=== PATIENT | female | born 1970 | race Caucasian/White ===

== ENCOUNTER 2020-03-22 07:37 | Outpatient (REF) | payer MEDICAID, SELFPAY ==
--- NOTE | 2020-03-22 07:43 | CA_ITS ---
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 Findings Left Ventricle Normal left ventricular size, thickness, systolic function, and wall motion. The visually estimated ejection fraction is between 55-60%. Diastolic function is normal for age. Right Ventricle Normal right ventricular cavity size and systolic function. Atria The left atrium is normal in size. There is no evidence of interatrial shunt by color Doppler. Aortic Valve Normal aortic valve structure and function. There is no aortic valve stenosis. There is no aortic valve regurgitation. Mitral Valve Normal mitral valve structure and function. There is no mitral valve regurgitation. There is no mitral valve stenosis. Pulmonic Valve Normal pulmonic valve structure and function. There is trace pulmonic valve regurgitation. Tricuspid Valve Normal tricuspid valve structure and function. There is trace tricuspid valve regurgitation. Normal right atrial pressure. There is no evidence of pulmonary hypertension. Great Vessels All visible segments of the aorta are normal in size. The visualized portions of the pulmonary artery and branches are normal. Venous The inferior vena cava is normal in size and collapses greater than 50% with inspiration. Pericardium/Pleural There is no evidence of pericardial effusion. Prior Study Comparison No prior study available for comparison. Measurements 2D Linear Measurements RVADd: 0.39 RVIDd: 2.96 IVSd: 0.76 0.6-0.9/0.6-1.0 cm LVIDd: 4.26 3.9-5.3/4.2-5.9 cm LVIDs: 2.75 2.0-3.6 cm LVPWd: 0.80 0.7-1.1 cm Ao Root: 2.92 2.1-3.5 cm LA Diam: 3.10 2.7-3.8/3.0-4.0 cm LV Mass: 124.83 67-162/88-224 g LVOT Diam: 1.98 3.0+(-)1.3 cm Mitral Valve MV Pk E: 0.84 MV PK A: 0.70 MV Decel Time: 215.14 E/A: 1.20 E'Lateral: 0.17 E'Medial: 0.10 Decel [place]: 3.90 Aortic Valve AoV Pk Herrera: 1.69 AoV Mn Herrera: 1.16 AoV VTI: 0.31 AoV Pk Grad: 11.39 Aov Mn Grad: 6.06 LVOT LVOT Pk Herrera: 1.32 LVOT Mn Herrera: 0.83 LVOT VTI: 0.26 LVOT Pk Grad: 7.02 LVOT Mn Grad: 3.23 LVOT Diam: 1.98 LVOT Area: 3.07 Diastolic Function MV Pk E: 0.84 MV Pk A: 0.70 E/A: 1.20 E'Medial: 0.10 E' Laterial: 0.17 Tricuspid Valve TR Pk Herrera: 2.37 TR Pk Grad: 22.43 RA Press: 8.00 Great Vessels Aorta Ao Root-2D: 2.92 2.0-3.7 cm Ao Asc: 3.02 2.1-3.4 cm Ao Arch: 2.43 Updated in Other Vendor System with Status of Final Mekhi Chung MD electronically signed on 03/22/2020 7:22:35 PM with status of Final
== END 2020-03-22 07:38 | disposition home or self-care (01) ==
LOC: HO.RESP 07:37
PROVIDERS: PCP Internal Medicine Geriatric Medicine; Visit Provider Internal Medicine Pulmonary Disease
DX: R06.00 Dyspnea, unspecified (principal)
CPT/HCPCS: 93306; 94060; 94727; 94729

== ENCOUNTER 2020-03-25 08:15 | Outpatient (REF) | payer MEDICAID, SELFPAY ==
--- NOTE | 2020-03-25 08:20 | CT_ITS ---
EXAMINATION: CT ANGIOGRAM CHEST CLINICAL INFORMATION: Dyspnea on exertion. Rule out PE. COMPARISON: None TECHNIQUE: Multiple axial images were obtained through the chest after the administration of 65 mL of Ultravist 370 intravenous contrast. Extensive vascular post-processing including two-dimensional and three-dimensional reformatted images were created and reviewed on an independent workstation. This CT examination was performed using dose optimization techniques as appropriate, variously including the following: *Automated exposure control *Adjustment of mA and/or kV according to patient size (this includes techniques or standardized protocols for targeted exams where dose is matched to indication/reason for exam; i.e. extremities or head) *Use of iterative reconstruction technique DLP: 82 mGy-cm FINDINGS: There is good opacification of the pulmonary artery and its branches without any intraluminal filling defect or narrowing. The thoracic aorta is of normal caliber without aneurysm or dissection. There is no pericardial effusion. There is no abnormal mediastinal or hilar lymphadenopathy. The trachea and the bronchi are widely patent. The lungs are well expanded and clear of acute process. There is a 5 mm calcified nodule, right upper lobe, axial image 17/5. No additional pulmonary nodules, mass, or consolidation seen. There is no pleural effusion, thickening, or calcification. The axilla and chest appear unremarkable. There is an 8 mm calcification in the right central breast. Imaging through the upper abdomen reveals visualized liver, spleen, pancreas and bilateral adrenal glands to be unremarkable. Bone windows reveal no visible fracture or bony abnormality. The soft tissues are normal. CT/CT angio chest IMPRESSION: 1. No evidence of PE. 2. No evidence of aortic aneurysm or dissection. 3. Calcified granuloma, right upper lobe. No additional calcified or noncalcified pulmonary nodules seen.
[2020-03-25] MEDS: iohexoL 350 MG/ML 100 ML INFUS..BTL 65 ML IV (09:41)
== END 2020-03-25 08:16 | disposition home or self-care (01) ==
LOC: HO.CT 08:15
PROVIDERS: Visit Provider Internal Medicine Pulmonary Disease
DX: R06.00 Dyspnea, unspecified (principal)
CPT/HCPCS: 71275

== ENCOUNTER 2020-03-31 14:30 | Outpatient (REF) | payer MEDICAID, SELFPAY ==
--- NOTE | 2020-03-31 14:16 | FL_ITS ---
PROCEDURE: XR MODIFIED BARIUM SWALLOW CLINICAL INFORMATION: Dysphagia. COMPARISON: None TECHNIQUE: Modified barium swallow was performed in lateral fluoroscopy in presence of speech therapist. FINDINGS: Following oral administration of various consistencies of liquid, solid and semisolid food coated with barium there is normal propagation of bolus from the oral cavity through the pharynx into esophagus without obstruction. No laryngeal penetration or aspiration seen. No retention of barium in the valleculae piriform sinuses. FLUOROSCOPY TIME: 1.0 minutes. DOSE AREA PRODUCT: 0.837 uGy-m2 (microgray-meter squared). FL/FL barium swallow modified IMPRESSION: Unremarkable modified barium swallow.
== END 2020-03-31 14:31 ==
LOC: HO.XRAY 14:30
PROVIDERS: Referring Provider Internal Medicine Pulmonary Disease; Visit Provider Internal Medicine Pulmonary Disease
DX: R13.10 Dysphagia, unspecified (principal)
CPT/HCPCS: 74230; 92611

== ENCOUNTER 2020-04-09 14:03 | Inpatient (IN) | payer MEDICAID, SELFPAY ==
[2020-04-09 15:57] VITALS: BP 110/68; PULSE 97; RESP 20; TEMP 36.8; O2SAT 100; BMI 52.9
--- NOTE | 2020-04-09 17:28 | ECG_ITS ---
Test Reason : SHORTNESS OF BREATH Blood Pressure : / mmHG Vent. Rate : 087 BPM Atrial Rate : 087 BPM P-R Int : 136 ms QRS Dur : 070 ms QT Int : 366 ms P-R-T Axes : 044 032 032 degrees QTc Int : 440 ms Normal sinus rhythm Normal ECG When compared with ECG of 11-AUG-2015 00:19, No significant change was found Referred By: Randee Tanner Electronically Signed By:SIDRA RANKIN MD
--- NOTE | 2020-04-09 17:41 | ED.RECABL ---
HPI - Recheck/Abnormal Lab/Rx General Chief Complaint: Recheck/Abnormal Lab/Rx Stated Complaint: abnormal lab work Time Seen by Provider: 04/09/20 16:15 Source: patient Mode of arrival: ambulatory Limitations: language barrier (Croatian-speaking) History of Present Illness HPI narrative: 49yoF who is being followed by Sales Market Leader Dr. De La Rosa for difficulty swallowing and sob with laying down and exertion for the past few months presenting to the ED after having outpatient blood work yesterday and being called today for a low blood count' pt unsure which blood count. Reports for the past few weeks so has noticed generalized weakness, dizziness and poor appetite. Denies any other symptoms including N/V, Chest pain, abdominal pain, hemoptysis, hematuria, melena, and hematochezia. Related Data Home Medications Medication Instructions Recorded Confirmed No Known Home Meds 04/09/20 04/09/20 Allergies Allergy/AdvReac Type Severity Reaction Status Date / Time No Known Allergies Allergy Mild NONE Unverified 02/19/20 17:08 Latex Allergy Unknown Uncoded 11/13/18 00:00 latex Allergy Unknown Uncoded 11/15/15 00:00 [facility] Past Medical History Attestation statement: The following information was validated with the patient. Medical History No known health problems Social History Social History Alcohol intake: never Smoking Status: Never smoker Smoked in Last 30 Days: No Use of substances other than those prescribed or required for medical reasons: No Advance Directives: No Advance Directives Information Provided: No Physical Exam Vital Signs: Vital Signs: Last Vital Signs Temp 98.9 F 04/09/20 18:12 Pulse 78 04/09/20 20:00 Resp 8 L 04/09/20 20:00 BP 112/68 04/09/20 20:00 Pulse Ox 98 04/09/20 20:00 Body Mass Index 52.9 vital signs have been reviewed as normal and appeared to be correct. Blood pressure normal. Heart rate normal. Respiration rate normal. Temperature normal. Oxygen saturation normal. Appearance: Alert. Oriented X3. No acute distress. Head: Normal external exam. Normocephalic. Atraumatic. No Garcia signs noted. No raccoon eyes noted Eyes: PERRLA. EOMI. Conjunctiva and sclera normal. Eyelids normal. ENT: EAC normal. TM's Normal. Pharynx normal. Uvula midline. Moist mucous membranes. No trismus noted. No drooling noted. No muffled voice noted. Neck: Normal inspection. Neck supple. FROM. No adenopathy. Thyroid Normal. No meningeal signs. No neck mass noted. CVS: Normal heart rate and rhythm. Heart sound normal. No murmurs noted. Pulses normal throughout. Respiratory: No respiratory distress. Painless inspiration. Breath sounds normal. No wheezes/rales/rhonchi noted. Chest nontender. No accessory muscle usage noted or decreased air movement noted. Abdomen: Soft and nontender. Bowel sounds normal in all 4 quadrants. No distention noted. No organomegaly noted. No visible injury noted. Back: No CVA tenderness. Full range of motion noted. Skin: Skin warm and dry. Normal skin color. Normal skin turgor. No rashes/lesions/lacerations noted. Extremities: No lower extremity edema. Extremities exhibit normal range of motion. Extremities nontender. Neuro: Oriented X 3. No motor deficit. No sensory deficit. Reflexes normal. Course Course Course Narrative: 17:30PM - 49yoF who is being followed by Sales Market Leader Dr. De La Rosa for difficulty swallowing and sob with laying down and exertion for the past few months presenting to the ED after having outpatient blood work yesterday and being called today for a low blood count' pt unsure which blood count. Reports for the past few weeks so has noticed generalized weakness, dizziness and poor appetite. - Labs, EKG, CXR, Blood type and screen. Provide IVF's then re-evaluate Reevaluation(s) Reevaluation #1: - H&H 6.2/23.5. All other labs WNL. EKG NSR. CXR WNL. - Pt signed Consent for Transfusion of blood products at this time and 2 Packs of RBC's ordered as well for blood transfusion. Will re-evaluate. Time: 18:30 Reevaluation #2: Still awaiting the 2 packs of red blood cells for the patient to start receiving her blood transfusion. Otherwise she is comfortable laying in the bed sleeping and no apparent distress respirations even and unlabored. Vital signs are within normal limits. Patient most likely iron deficiency anemia. Stool occult was negative. Plan is to admit for further evaluation treatment as patient reports generalized weakness and dizziness along with shortness of breath for her anemia. Time: 22:[address] [facility] - Recheck/Abnormal Lab/Rx Medical Records Attestation: I reviewed the patient's medical records. Lab Data Attestation: I reviewed the patient's lab results. Result diagrams: 04/09/20 17:47 04/09/20 17:47 Labs: Lab Results 04/09/20 04/09/20 04/09/20 Range/Units 17:47 17:47 17:47 WBC 5.0 (4.8-10.8) X10*3/uL RBC 4.05 L (4.20-5.50) X10*6/uL Hgb 6.2 L* (12.0-16.0) g/dl Hct 23.5 L (37-47) % MCV 58.0 L (80-98) fL MCH 15.3 L (27.0-33.0) pg MCHC 26.4 L (31.0-35.0) g/dl RDW 18.9 H (11.0-16.0) % Plt Count 485 H (160-400) X10*3/uL MPV 9.1 L (9.4-12.3) fL Immature Gran % (Auto) 0.4 (0.0-0.4) % Neut % (Auto) 60.3 (45-73) % Lymph % (Auto) 24.1 (20-40) % [place] % (Auto) 8.6 (2-11) % Eos % (Auto) 6.0 H (0-4) % Baso % (Auto) 0.6 (0-2) % Lymph # (Auto) 1.2 (1.2-4.9) X10*3/uL [place] # (Auto) 0.4 (0.1-1.2) X10*3/uL Eos # (Auto) 0.3 (0.0-0.4) X10*3/uL Baso # (Auto) 0.0 (0.0-0.2) X10*3/uL Abs Immat Gran (auto) 0.02 (0.00-0.03) X10*3/uL Absolute Neuts (auto) 3.0 (2.0-8.3) X10*3/uL Absolute Nucleated RBC 0.000 (0.0-0.012) X10*3/uL Nucleated RBC % (auto) 0.0 (0.0-0.2) /100WBC Hold Purple Top SEE NOTE PT 13.2 H (10.8-13.0) SEC INR 1.1 (0.9-1.1) Sodium (135-145) mmol/L Potassium (3.3-5.1) mmol/l Chloride (96-108) mmol/L Carbon Dioxide (22-29) mmol/L Anion Gap (12-20) BUN (9-16) mg/dL Creatinine (0.5-1.4) mg/dL Estim Creat Clear Calc Estimated GFR Random Glucose (60-115) mg/dL Calcium (8.4-10.2) mg/dL Magnesium (1.6-2.6) mg/dL Iron (30-160) mcg/dL TIBC (228-428) mcg/dL % Saturation (15-50) % Unsat Iron Binding ug/dL Total Bilirubin (0.0-1.0) mg/dL Direct Bilirubin (0.0-0.5) mg/dL AST (5-31) U/L ALT (0-31) U/L Alkaline Phosphatase (39-117) U/L Total Protein (6.5-8.0) g/dL Albumin (3.5-5.0) g/dL Urine Color Urine Appearance Urine pH (5.0-8.0) Ur Specific [place] (1.005-1.025) Urine Protein (NEG-TRACE) MG/DL Urine Glucose (UA) (NEG) MG/DL Urine Ketones (NEG) MG/DL Urine Blood (NEG) Urine Nitrite (NEG) Ur Leukocyte Esterase (NEG) Stool Occult Blood (NEG) Blood Type Antibody Screen Crossmatch 04/09/20 04/09/20 04/09/20 Range/Units 17:47 17:47 18:26 WBC (4.8-10.8) X10*3/uL RBC (4.20-5.50) X10*6/uL Hgb (12.0-16.0) g/dl Hct (37-47) % MCV (80-98) fL MCH (27.0-33.0) pg MCHC (31.0-35.0) g/dl RDW (11.0-16.0) % Plt Count (160-400) X10*3/uL MPV (9.4-12.3) fL Immature Gran % (Auto) (0.0-0.4) % Neut % (Auto) (45-73) % Lymph % (Auto) (20-40) % [place] % (Auto) (2-11) % Eos % (Auto) (0-4) % Baso % (Auto) (0-2) % Lymph # (Auto) (1.2-4.9) X10*3/uL [place] # (Auto) (0.1-1.2) X10*3/uL Eos # (Auto) (0.0-0.4) X10*3/uL Baso # (Auto) (0.0-0.2) X10*3/uL Abs Immat Gran (auto) (0.00-0.03) X10*3/uL Absolute Neuts (auto) (2.0-8.3) X10*3/uL Absolute Nucleated RBC (0.0-0.012) X10*3/uL Nucleated RBC % (auto) (0.0-0.2) /100WBC Hold Purple Top PT (10.8-13.0) SEC INR (0.9-1.1) Sodium 141 (135-145) mmol/L Potassium 4.3 (3.3-5.1) mmol/l Chloride 107 (96-108) mmol/L Carbon Dioxide 26 (22-29) mmol/L Anion Gap 12 (12-20) BUN 10 (9-16) mg/dL Creatinine 0.64 (0.5-1.4) mg/dL Estim Creat Clear Calc 114.6 Estimated GFR > 60 Random Glucose 80 (60-115) mg/dL Calcium 7.8 L (8.4-10.2) mg/dL Magnesium 2.2 (1.6-2.6) mg/dL Iron 11 L (30-160) mcg/dL TIBC 368 (228-428) mcg/dL % Saturation 3 L (15-50) % Unsat Iron Binding 357 ug/dL Total Bilirubin 0.3 (0.0-1.0) mg/dL Direct Bilirubin 0.2 (0.0-0.5) mg/dL AST 23 (5-31) U/L ALT 20 (0-31) U/L Alkaline Phosphatase 86 (39-117) U/L Total Protein 6.1 L (6.5-8.0) g/dL Albumin 3.6 (3.5-5.0) g/dL Urine Color YELLOW Urine Appearance CLEAR Urine pH 7.5 (5.0-8.0) Ur Specific [place] 1.015 (1.005-1.025) Urine Protein NEG (NEG-TRACE) MG/DL Urine Glucose (UA) NEG (NEG) MG/DL Urine Ketones 15 (NEG) MG/DL Urine Blood NEG (NEG) Urine Nitrite NEG (NEG) Ur Leukocyte Esterase NEG (NEG) Stool Occult Blood (NEG) Blood Type O Positive Antibody Screen NEGATIVE Crossmatch See Detail 04/09/20 Range/Units 19:55 WBC (4.8-10.8) X10*3/uL RBC (4.20-5.50) X10*6/uL Hgb (12.0-16.0) g/dl Hct (37-47) % MCV (80-98) fL MCH (27.0-33.0) pg MCHC (31.0-35.0) g/dl RDW (11.0-16.0) % Plt Count (160-400) X10*3/uL MPV (9.4-12.3) fL Immature Gran % (Auto) (0.0-0.4) % Neut % (Auto) (45-73) % Lymph % (Auto) (20-40) % [place] % (Auto) (2-11) % Eos % (Auto) (0-4) % Baso % (Auto) (0-2) % Lymph # (Auto) (1.2-4.9) X10*3/uL [place] # (Auto) (0.1-1.2) X10*3/uL Eos # (Auto) (0.0-0.4) X10*3/uL Baso # (Auto) (0.0-0.2) X10*3/uL Abs Immat Gran (auto) (0.00-0.03) X10*3/uL Absolute Neuts (auto) (2.0-8.3) X10*3/uL Absolute Nucleated RBC (0.0-0.012) X10*3/uL Nucleated RBC % (auto) (0.0-0.2) /100WBC Hold Purple Top PT (10.8-13.0) SEC INR (0.9-1.1) Sodium (135-145) mmol/L Potassium (3.3-5.1) mmol/l Chloride (96-108) mmol/L Carbon Dioxide (22-29) mmol/L Anion Gap (12-20) BUN (9-16) mg/dL Creatinine (0.5-1.4) mg/dL Estim Creat Clear Calc Estimated GFR Random Glucose (60-115) mg/dL Calcium (8.4-10.2) mg/dL Magnesium (1.6-2.6) mg/dL Iron (30-160) mcg/dL TIBC (228-428) mcg/dL % Saturation (15-50) % Unsat Iron Binding ug/dL Total Bilirubin (0.0-1.0) mg/dL Direct Bilirubin (0.0-0.5) mg/dL AST (5-31) U/L ALT (0-31) U/L Alkaline Phosphatase (39-117) U/L Total Protein (6.5-8.0) g/dL Albumin (3.5-5.0) g/dL Urine Color Urine Appearance Urine pH (5.0-8.0) Ur Specific [place] (1.005-1.025) Urine Protein (NEG-TRACE) MG/DL Urine Glucose (UA) (NEG) MG/DL Urine Ketones (NEG) MG/DL Urine Blood (NEG) Urine Nitrite (NEG) Ur Leukocyte Esterase (NEG) Stool Occult Blood NEG (NEG) Blood Type Antibody Screen Crossmatch Imaging Data Chest x-ray: Attestation: I personally reviewed and interpreted this imaging study as follows: Radiologist's impression: FINDINGS: The cardiac silhouette is not enlarged. The mediastinal and hilar contours are unremarkable. There are neither pleural effusions nor pneumothoraces. There are no consolidations. The osseous structures are stable. XR/XR chest 2V IMPRESSION: No evidence for acute disease. ECG Data Attestation: I personally reviewed and interpreted this ECG as follows: ECG interpretation date: 04/09/20 ECG interpretation time: 18:08 Prior ECG tracings: available for review Interpretation: Normal sinus rhythm with a ventricular rate of 87 with a normal CA interval, with a normal QRS duration normal QT /QTC interval. No acute ischemic changes noted. Similar compared to prior August 2015. Critical Care Time Critical Care Time Critical Care Time: Yes Total Critical Care Time: 120 Attestation: I personally attest to this time spent taking care of the patient Discharge Plan Discharge Clinical Impression: Anemia, Weakness generalized, Dizziness Patient Disposition: Admitted As Inpatient Prescriptions: No Action No Known Home Meds RF: 0
[2020-04-09] MEDS: 0.9 % Sodium Chloride 1,000 ML 999 ML IVCONT (17:50)
[2020-04-09 17:59] LABS: MANUAL DIFF FLAG NO
[2020-04-09 18:00] LABS: Basophils Percent Auto 0.6 % (0-2); Mean Platelet Volume 9.1 fL (9.4-12.3)
--- NOTE | 2020-04-09 18:02 | XR_ITS ---
EXAMINATION: CHEST 2 VIEWS CLINICAL INFORMATION: Shortness of breath. COMPARISON: December 12, 2019. TECHNIQUE: PA and lateral views of the chest were obtained. FINDINGS: The cardiac silhouette is not enlarged. The mediastinal and hilar contours are unremarkable. There are neither pleural effusions nor pneumothoraces. There are no consolidations. The osseous structures are stable. XR/XR chest 2V IMPRESSION: No evidence for acute disease.
[2020-04-09 18:05] LABS: Eosinophils Absolute Auto 0.3 X10*3/uL (0.0-0.4); Hematocrit 23.5 % (37-47); Imm Gran Abs Auto 0.02 X10*3/uL (0.00-0.03); Imm Gran Pct Auto 0.4 % (0.0-0.4); Lymphocytes Absolute Auto 1.2 X10*3/uL (1.2-4.9); Lymphocytes Percent Auto 24.1 % (20-40); Mean Corpuscular HGB Conc 26.4 g/dl (31.0-35.0); Mean Corpuscular Hemoglobin 15.3 pg (27.0-33.0); Monocytes Absolute Auto 0.4 X10*3/uL (0.1-1.2); Monocytes Percent Auto 8.6 % (2-11); Neutrophils Percent Auto 60.3 % (45-73); Platelet Count 485 X10*3/uL (160-400); Red Blood Count 4.05 X10*6/uL (4.20-5.50); Red Cell Distribution Width 18.9 % (11.0-16.0)
[2020-04-09 18:06] LABS: Glucose Urine UA NEG (NEG); Leukocyte Esterase Urine NEG (NEG); Nitrite Urine NEG (NEG); PH 7.5 (5.0-8.0); Specific Gravity - Urine 1.015 (1.005-1.025); Urine Blood NEG (NEG); Urine Ketones 15 MG/DL (NEG); Urine Protein NEG (NEG-TRACE)
[2020-04-09 18:12] VITALS: BP 107/63; PULSE 91; RESP 20; TEMP 37.2; O2SAT 100
[2020-04-09 18:24] LABS: Alanine Aminotransferase 20 U/L (0-31); Albumin Level 3.6 g/dL (3.5-5.0); Alkaline Phosphatase 86 U/L (39-117); Anion Gap 12 (12-20); Aspartate Amino Transferase 23 U/L (5-31); Bilirubin Direct 0.2 mg/dL (0.0-0.5); Bilirubin Total 0.3 mg/dL (0.0-1.0); Blood Urea Nitrogen 10 mg/dL (9-16); Calcium 7.8 mg/dL (8.4-10.2); Carbon Dioxide 26 mmol/L (22-29); Chloride 107 mmol/L (96-108); Creatinine Clr Calc Pharmacy 114.6; Estimated Glomerular Filt Rate > 60; Glucose Random 80 mg/dL (60-115); Magnesium 2.2 mg/dL (1.6-2.6); Potassium 4.3 mmol/l (3.3-5.1); Sodium 141 mmol/L (135-145); Total Protein 6.1 g/dL (6.5-8.0)
[2020-04-09 18:41] LABS: INTERNATIONAL NORM RATIO 1.1 (0.9-1.1); Prothrombin Time 13.2 SEC (10.8-13.0)
[2020-04-09 19:01] LABS: Appearance Urine CLEAR; Color Urine YELLOW
[2020-04-09 20:00] VITALS: BP 112/68; PULSE 78; RESP 8; O2SAT 98
[2020-04-09 20:14] LABS: OBS Int Ctl Valid YES; OBS1 NEG (NEG)
[2020-04-09 20:21] LABS: Iron 11 mcg/dL (30-160); Percent Iron Saturation 3 % (15-50); Total Iron Binding Capacity 368 mcg/dL (228-428); Unsaturated Iron Binding 357 ug/dL
[2020-04-09] MEDS: Acetaminophen 325 MG TABLET 650 MG PO (20:51)
[2020-04-09 22:00] VITALS: BP 101/63; PULSE 81; RESP 16; O2SAT 98
[2020-04-09 22:57] VITALS: BP 106/58; PULSE 92; RESP 16; TEMP 37
[2020-04-09 23:15] LABS: Ferritin < 1 ng/mL (10-250)
[2020-04-09 23:17] VITALS: BP 97/55; PULSE 88; RESP 18; TEMP 37
[2020-04-10] VITALS (11 sets, daily range): BP systolic 95–114; BP diastolic 58–75; PULSE 73–83; RESP 16–20; TEMP 36.1–37.1; O2SAT 97–99
--- NOTE | 2020-04-10 01:25 | PM.IMHP ---
History of Present Illness Date of Service: 04/10/20 Chief Complaint: dizziness 49 y/o female who presented from home due to dizziness. Per history provided by the patient, for the past 2 weeks has been having symptoms of dizziness and feeling more fatigue than usual. Patient denies any blood in the stool, blood in the urine, vomiting blood, vomiting, diarrhea, chest pain or SOB. Colonoscopy done by Dr Bains in 2018 showed internal hemorrhoids, polyposis. Patient has a hx of abnormal uterine bleeding which was determined to be likely secondary to adenomatous hyperplasia which failed progestational therapy, dilation and curettage. Patient had hysterectomy in 2010. On presentation to the ED patient is found to be hemodynamically stable, hgb low of 6.2, electrolytes WNL. type and screen as well as consent for blood transfusion obtained per ED. 2 units of PRBC ordered per ED. Decision for admission given. Patient seen and examined at the bedside, laying down in bed in no acute distress. ROS as above otherwise negative. Physical exam unermarkable. PMHX: Anemia PSx: C section, bilateral tubal ligation, bilateral reduction mammoplasty, dilation and curettage in march 2008, hysterectomy Review of Systems Constitutional: Constitutional: Reports fatigue, Reports lethargy and Reports malaise Endocrine: Endocrine: Reports fatigue [facility] Medical History No known health problems Functional capacity: independent ambulation Social History Alcohol intake: never Smoking Status: Never smoker Smoked in Last 30 Days: No Use of substances other than those prescribed or required for medical reasons: No Advance Directives: No Advance Directives Information Provided: No Meds Allergies Allergy/AdvReac Type Severity Reaction Status Date / Time No Known Allergies Allergy Mild NONE Unverified 02/19/20 17:08 Latex Allergy Unknown Uncoded 11/13/18 00:00 latex Allergy Unknown Uncoded 11/15/15 00:00 Home Medications Medication Instructions Recorded Confirmed Type No Known Home Meds 04/09/20 04/09/20 History Physical Exam Vital Signs and Narrative: Vital Signs: Last Vital Signs Temp 98.6 F 04/09/20 23:17 Pulse 78 04/10/20 00:00 Resp 16 04/10/20 00:00 BP 104/68 04/10/20 00:00 Pulse Ox 98 04/10/20 00:00 Body Mass Index 52.9 Const: General: cooperative, comfortable and no acute distress Orientation/consciousness: oriented to person HENMT: Head: Yes normal to inspection Eyes: General: appearance normal, both eyes and all related structures Neck: Yes normal visual inspection Chest: Chest palpation & inspection: normal inspection of the chest Resp: Effort & Inspection: normal respiratory effort Cardio: Jugular venous distension: no JVD Rate: regular rate Rhythm: regular rhythm Heart sounds: S1 normal heart sound present and S2 normal heart sound present GI: Inspection: Yes normal to inspection Skin: General skin exam: no rashes or lesions noted Neuro: General: oriented to person Results Labs CBC and Chem 7: 04/09/20 17:47 04/09/20 17:47 Labs: Laboratory Results - last 24 hr 04/09/20 04/09/20 04/09/20 17:47 17:47 17:47 MCV 58.0 L MCH 15.3 L MCHC 26.4 L RDW 18.9 H Plt Count 485 H MPV 9.1 L Immature Gran % (Auto) 0.4 Neut % (Auto) 60.3 Lymph % (Auto) 24.1 [place] % (Auto) 8.6 Eos % (Auto) 6.0 H Baso % (Auto) 0.6 Lymph # (Auto) 1.2 [place] # (Auto) 0.4 Eos # (Auto) 0.3 Baso # (Auto) 0.0 Abs Immat Gran (auto) 0.02 Absolute Neuts (auto) 3.0 Absolute Nucleated RBC 0.000 Nucleated RBC % (auto) 0.0 Hold Purple Top SEE NOTE PT 13.2 H INR 1.1 Anion Gap Estim Creat Clear Calc Estimated GFR Random Glucose Calcium Magnesium Iron TIBC % Saturation Unsat Iron Binding Ferritin Total Bilirubin Direct Bilirubin AST ALT Alkaline Phosphatase Total Protein Albumin Urine Color Urine Appearance Urine pH Ur Specific [place] Urine Protein Urine Glucose (UA) Urine Ketones Urine Blood Urine Nitrite Ur Leukocyte Esterase Stool Occult Blood Blood Type Antibody Screen Crossmatch 04/09/20 04/09/20 04/09/20 17:47 17:47 18:26 MCV MCH MCHC RDW Plt Count MPV Immature Gran % (Auto) Neut % (Auto) Lymph % (Auto) [place] % (Auto) Eos % (Auto) Baso % (Auto) Lymph # (Auto) [place] # (Auto) Eos # (Auto) Baso # (Auto) Abs Immat Gran (auto) Absolute Neuts (auto) Absolute Nucleated RBC Nucleated RBC % (auto) Hold Purple Top PT INR Anion Gap 12 Estim Creat Clear Calc 114.6 Estimated GFR > 60 Random Glucose 80 Calcium 7.8 L Magnesium 2.2 Iron 11 L TIBC 368 % Saturation 3 L Unsat Iron Binding 357 Ferritin < 1 L Total Bilirubin 0.3 Direct Bilirubin 0.2 AST 23 ALT 20 Alkaline Phosphatase 86 Total Protein 6.1 L Albumin 3.6 Urine Color YELLOW Urine Appearance CLEAR Urine pH 7.5 Ur Specific [place] 1.015 Urine Protein NEG Urine Glucose (UA) NEG Urine Ketones 15 Urine Blood NEG Urine Nitrite NEG Ur Leukocyte Esterase NEG Stool Occult Blood Blood Type O Positive Antibody Screen NEGATIVE Crossmatch See Detail 04/09/20 19:55 MCV MCH MCHC RDW Plt Count MPV Immature Gran % (Auto) Neut % (Auto) Lymph % (Auto) [place] % (Auto) Eos % (Auto) Baso % (Auto) Lymph # (Auto) [place] # (Auto) Eos # (Auto) Baso # (Auto) Abs Immat Gran (auto) Absolute Neuts (auto) Absolute Nucleated RBC Nucleated RBC % (auto) Hold Purple Top PT INR Anion Gap Estim Creat Clear Calc Estimated GFR Random Glucose Calcium Magnesium Iron TIBC % Saturation Unsat Iron Binding Ferritin Total Bilirubin Direct Bilirubin AST ALT Alkaline Phosphatase Total Protein Albumin Urine Color Urine Appearance Urine pH Ur Specific [place] Urine Protein Urine Glucose (UA) Urine Ketones Urine Blood Urine Nitrite Ur Leukocyte Esterase Stool Occult Blood NEG Blood Type Antibody Screen Crossmatch Imaging Radiologist's Impressions: Impressions Chest X-Ray 04/09/20 18:02 IMPRESSION: No evidence for acute disease. Assessment and Plan (1) Anemia: Qualifiers: Anemia type: unspecified type Qualified Code(s): D64.9 - Anemia, unspecified Status: Acute (2) H/O: hysterectomy: Status: Acute Anemia of unknown etiology, guaiac negative in the ED S/p colonoscopy in the past with evidence of mod internal hemorrhoids / polyps 2 units of PRBC ordered per ED Follow up repeat CBC post transfusion Keep Hgb >7 Follow up anemia work up including: fetting, retic count and iron profile Hematology consult in the am
[2020-04-10 01:49] LABS: Alanine Aminotransferase 18 U/L (0-31); Albumin Level 3.2 g/dL (3.5-5.0); Alkaline Phosphatase 71 U/L (39-117); Anion Gap 9 (12-20); Aspartate Amino Transferase 16 U/L (5-31); Bilirubin Total 0.4 mg/dL (0.0-1.0); Blood Urea Nitrogen 9 mg/dL (9-16); Calcium 7.3 mg/dL (8.4-10.2); Carbon Dioxide 24 mmol/L (22-29); Chloride 110 mmol/L (96-108); Creatinine Clr Calc Pharmacy 112.9; Estimated Glomerular Filt Rate > 60; Glucose Random 95 mg/dL (60-115); Sodium 139 mmol/L (135-145); Total Protein 5.3 g/dL (6.5-8.0)
--- NOTE | 2020-04-10 01:49 | PC.NURSE ---
awaiting for COVID pending results before room assignment given.
[2020-04-10 02:18] LABS: SARS COV2 PCR INHOUSE NEGATIVE (Negative)
--- NOTE | 2020-04-10 02:43 | PC.NURSE ---
pt awaiting for room assignment.
--- NOTE | 2020-04-10 03:25 | PC.NURSE ---
report given to floor. pt to floor in stretcher.
--- NOTE | 2020-04-10 03:48 | PC.NURSE ---
PT TO FLOOR IN STRETCHER WITHOUT COMPLAINTS. HL X 2 FLUSHES EASILY W/O RESISTENCE. REPORT GIVEN TO BUBBA RIOS. PT TO FLOOR IN STRETCHER IN NAD AT THIS TIME.
[2020-04-10] MEDS: Acetaminophen 325 MG TABLET 650 MG PO (06:02)
[2020-04-10 06:52] LABS: Hemoglobin 6.2 g/dl (12.0-16.0)
[2020-04-10 07:12] LABS: MANUAL DIFF FLAG SCAN; Mean Corpuscular Hemoglobin 19.4 pg (27.0-33.0); Red Cell Distribution Width 29.7 % (11.0-16.0); SCAN SMEAR FLAG 1
[2020-04-10 07:14] LABS: Basophils Percent Auto 0.8 % (0-2); Eosinophils Absolute Auto 0.4 X10*3/uL (0.0-0.4); Eosinophils Percent Auto 6.8 % (0-4); Hematocrit 30.6 % (37-47); Hemoglobin 8.8 g/dl (12.0-16.0); Lymphocytes Absolute Auto 1.3 X10*3/uL (1.2-4.9); Lymphocytes Percent Auto 25.2 % (20-40); Mean Corpuscular HGB Conc 28.8 g/dl (31.0-35.0); Mean Corpuscular Volume 67.4 fL (80-98); Mean Platelet Volume 9.1 fL (9.4-12.3); Monocytes Absolute Auto 0.5 X10*3/uL (0.1-1.2); Monocytes Percent Auto 8.5 % (2-11); Neutrophils Absolute Auto 3.1 X10*3/uL (2.0-8.3); Neutrophils Percent Auto 58.7 % (45-73); Platelet Count 413 X10*3/uL (160-400); Red Blood Count 4.54 X10*6/uL (4.20-5.50); Retic HGB Equivalent 15.4 pg (30.0-35.0); Reticulocyte Percent 0.9 % (0.5-1.8); White Blood Count 5.3 X10*3/uL (4.8-10.8)
[2020-04-10 07:44] LABS: Anion Gap 12 (12-20); Blood Urea Nitrogen 8 mg/dL (9-16); Calcium 7.5 mg/dL (8.4-10.2); Carbon Dioxide 22 mmol/L (22-29); Chloride 108 mmol/L (96-108); Creatinine Clr Calc Pharmacy 116.5; Estimated Glomerular Filt Rate > 60; Glucose Random 88 mg/dL (60-115); Iron 23 mcg/dL (30-160); Percent Iron Saturation 7 % (15-50); Potassium 4.3 mmol/l (3.3-5.1); Sodium 138 mmol/L (135-145); Total Iron Binding Capacity 325 mcg/dL (228-428); Unsaturated Iron Binding 302 ug/dL
[2020-04-10 07:58] LABS: SLIDE REVIEW VERIFIED
[2020-04-10 08:10] LABS: Ferritin < 1 ng/mL (10-250)
[2020-04-10] MEDS: 0.9 % Sodium Chloride Flush 3 ML SYRINGE IVFLUSH ×3 (09:12→22:43)
--- NOTE | 2020-04-10 11:27 | PM.HEMONCCN ---
Subjective - Subjective Chief complaint: acquired microcytic anemia Patient: new to practice Primary Care Provider: Barry Kent MD HPI - Consult Narrative Reason for consult: anemia Narrative: Radha Cabrera is a 49 year old female who presents with no known bleeding and a new microcytic anemia with MCV of 58, ferritin pending. Review of Systems - Constitutional Reports other - Eyes Reports floaters - ENT Reports system reviewed and no additional complaints, except as documented - Cardiovascular Reports lightheadedness - Respiratory Reports other - Gastrointestinal Reports constipation - Genitourinary Reports other - Musculoskeletal Reports muscle weakness - Integumentary/Breasts Skin/Breast: Reports other - Neurologic Reports weakness - Psychiatric Reports lack of enjoyment - Endocrine Reports cold intolerance - Hematologic/Lymphatic Reports other - Allergic/Immunologic Reports other Oncology Screenings - Immunizations Influenza Immunization Status: Up To Date Pneumoccocal Immunization Status: Up To Date - ECOG Performance Status ECOG Performance Status: 1 - G8 Geriatric Assessment Mobility: Goes out G8 Score: 2 G8 Risk Level: High risk for early functional decline and reduced survival. - [place] Frail Scale Number of times patient admitted to hospital in past year: 1 to 2 [place] Frail Scale Score: 1 Frailty Level: Not Frail - [place] VTE Risk Cancer Type: Other Pre-chemo platelet count >= 350,000/uL: Yes Hemoglobin level <10 g/dL or using RBC growth factors: Yes Pre-chemo leukocyte count > 11,000/uL: Yes BMI >=35: Yes VTE Risk Score:: 4 [place] VTE Risk: High VTE Risk [facility] Medical History: Medical History (Last Reviewed 04/10/20 @ 05:30 by Kalyani York RN) No known health problems Functional capacity: independent ambulation Smoking status: Never smoker Substance use type: does not use Alcohol intake: never Home Medications and Allergies Current Medications: Current Medications Generic Name Dose Route Start Last Admin Trade Name Freq PRN Reason Stop Dose Admin Ferrous Sulfate 324 mg 04/10/20 11:25 Ferrous Sulfate 324 Mg Tablet.Dr LUIZ F[facility] Pharmacy Consult 1 each 04/09/20 21:54 Consult Rx Perform Med Rec MISCELLANE ONCE PRN Consult order Sodium Chloride 3 ml 04/10/20 08:00 04/10/20 09:12 0.9 % Sodium Chloride Flush 3 Ml Syringe IVFLUSH 3 ml QSHIFT [facility] Administration Home Medications Medication Instructions Recorded Confirmed Type No Known Home Meds 04/09/20 04/09/20 History Allergies Allergy/AdvReac Type Severity Reaction Status Date / Time No Known Allergies Allergy Mild NONE Unverified 02/19/20 17:08 Latex Allergy Unknown Uncoded 11/13/18 00:00 latex Allergy Unknown Uncoded 11/15/15 00:00 Physical Exam Vital signs: Vital Signs Temp 98.2 F 04/10/20 11:24 Pulse 81 04/10/20 11:24 Resp 18 04/10/20 11:24 BP 103/67 04/10/20 11:24 Pulse Ox 98 04/10/20 11:24 Intake & Output 04/09/20 04/10/20 04/10/20 18:59 06:59 18:59 Intake Total 1940 / 1940 Output Total 200 / 200 Balance 1740 / 1740 Urine Output (Average ml/kg/hr) 0.15 Intake: Intake, Oral Amount 240 / 240 Intake (Blood Product) Amount 700 / 700 Red Blood Cells (E0336) Unit 350 / 350 [id number] Red Blood Cells (E0382) Unit 350 / 350 [id number] Intake, IV Amount 1000 / 1000 0.9 % Sodium Chloride 1,000 ml 1000 / 1000 @ 999 mls/hr IVCONT .Q1H1M ONE Rx#:[id number] Output: Output, Urine Amount 200 / 200 Other: Urine Bathroom Urine Color Yellow Weight 111 kg Weight 111 kg - Constitutional Present: no acute distress - Routine HEENT Exam Head: Present: atraumatic ENT: Present: mucous membranes moist - Routine Neck Exam Present: supple - Routine Chest/Breast/Axilla Exam Breast: Present: Normal Exam - Routine Respiratory Exam Present: decreased breath sounds - Routine Cardiovascular Exam Cardiovascular: Present: RRR - Routine Abdominal Exam Present: diminished bowel sounds, nontender - Routine Exam Patient deferred: external exam - Routine Extremities Exam Present: full ROM - Routine Back/Spine/Pelvis Exam Back/Spine: Present: full ROM - Routine Neurological Exam Present: alert, oriented X3 - Routine Psychiatric Exam Present: normal affect Hem/Onc Consult Result - Labs CBC & Chem 7: 04/10/20 06:28 04/10/20 06:28 Labs: Short CBC 04/09/20 04/10/20 Range/Units 17:47 06:28 WBC 5.0 5.3 (4.8-10.8) X10*3/uL Hgb 6.2 L* 8.8 L D (12.0-16.0) g/dl Hct 23.5 L 30.6 L D (37-47) % Plt Count 485 H 413 H (160-400) X10*3/uL BMP 04/09/20 04/10/20 04/10/20 17:47 01:00 06:28 Sodium 141 139 138 Potassium 4.3 4.0 4.3 Chloride 107 110 H 108 Carbon Dioxide 26 24 22 BUN 10 9 8 L Creatinine 0.64 0.65 0.63 Calcium 7.8 L 7.3 L D 7.5 L Liver Function 04/09/20 04/10/20 Range/Units 17:47 01:00 Total Bilirubin 0.3 0.4 (0.0-1.0) mg/dL Direct Bilirubin 0.2 (0.0-0.5) mg/dL AST 23 16 (5-31) U/L ALT 20 18 (0-31) U/L Alkaline Phosphatase 86 71 (39-117) U/L Albumin 3.6 3.2 L (3.5-5.0) g/dL Urine 04/09/20 Range/Units 17:47 Urine Color YELLOW Urine Appearance CLEAR Urine pH 7.5 (5.0-8.0) Ur Specific [place] 1.015 (1.005-1.025) Urine Protein NEG (NEG-TRACE) MG/DL Urine Glucose (UA) NEG (NEG) MG/DL Assessment and Plan (1) Anemia Status: Acute Qualifiers: Anemia type: iron deficiency Iron deficiency anemia type: chronic blood loss Qualified Code(s): D50.0 - Iron deficiency anemia secondary to blood loss (chronic) The new microcytosis is likely iron deficiency from blood loss or malabsorption. She has been transfused. Please check ferritin and reticulocytes. will follow.
--- NOTE | 2020-04-10 11:54 | P.CNGI_ITS ---
History of Present Illness Data of Consult Service Date: 04/10/20 Requesting physician: Kristi Barone Primary Care Provider: Barry Kent MD HPI Reason for consult: anemia 49-year-old female presented to [facility] ED yesterday with generalized weakness and dizziness for the past few weeks: 49 YF who is being followed by [employer]yl[employer]id[facility] Dr. De La Rosa for difficulty swallowing and sob with laying down and exertion for the past few months presenting to the ED after having outpatient blood work yesterday and being called today for a low blood count' pt unsure which blood count. Reports for the past few weeks she has noticed generalized weakness, dizziness and poor appetite. Denies any other symptoms including N/V, Chest pain, abdominal pain, hemoptysis, hematuria, melena, and hematochezia Labs revealed severe microcytic hypochromic anemia with H&H of 6.2 and 23.5. Iron studies were consistent with iron deficiency anemia. Stool Hemoccult was negative. Patient was admitted and transfused 2 U packed RBCs. Repeat H&H this morning was 8.8 & 30. Patient complains of dysphagia and odynophagia to solids (even crackers) for the past 7 to 8 months. She states she has been eating less and cutting up her food into small pieces. Patient denies episodes of regurgitation or food impaction. Admits to weight loss of 11 lb over the past 7-8 months. She denies symptoms of heartburn, abdominal pain, change in appetite or weight. Denies recent change in bowel habits, constipation, diarrhea, black stools or rectal bleeding. Patient denies major cardiac or pulmonary problems, loud snoring or sleep apnea Pt complains of nausea and vomiting after she had anesthesia for colonoscopy in the past. Denies being on chronic anticoagulation. Patient denies known family history of colon polyps, colon cancer or other GI malignancies. PAST GI HISTORY BY REVIEW OF MEDICAL RECORDS: 03/23 Modified barium swallow was normal. 02/27/19 Patient had a screening colonoscopy which showed: Ascending Colon A 12 -15 mm sessile polyp removed with a hot snare Sigmoid Colon A 7-8 mm sessile polyp removed with a cold snare and residual polyp removed with a cold biopsy and moderate diverticulosis BIOPSIES SHOWED: A. Colon, ascending polyp, polypectomy: Fragments of tubular adenoma. B. Colon, sigmoid polyp, polypectomy: Fragments of hyperplastic polyp. FU Colonoscopy was advised in 3 yrs and will be due in 02/23 Review of Systems Constitutional: Constitutional: Denies headache(s), Reports weakness and Reports weight loss Eyes: Eyes: Denies eye discharge and Denies irritation ENT: Reports Normal hearing present, Reports dysphagia, Denies dizziness, Denies headache(s) and Reports odynophagia Cardiovascular: Cardiovascular: Denies chest pain, Denies leg edema and Denies dyspnea on exertion Respiratory: Respiratory: Denies cough and Denies dyspnea on exertion Gastrointestinal: Gastrointestinal: Denies abdominal pain, Denies change in bowel habits, Reports dysphagia, Denies heartburn and Reports odynophagia Genitourinary: Genitourinary: Denies difficulty voiding and Denies dysuria Musculoskeletal: Musculoskeletal: Denies back pain and Denies arthralgias Integumentary/Breasts: Skin/Breast: Denies pruritus, Denies rash and Denies jaundice Neurologic: Reports Normal hearing present, Denies dizziness, Denies headache(s) and Reports weakness Psychiatric: Psychiatric: Denies anxiety, Denies depression and Denies panic attacks Endocrine: Endocrine: Denies cold intolerance, Denies flushing and Denies heat intolerance PMFSH Past Medical History Medical History No known health problems Functional capacity: independent ambulation Social History Social History Household Members: Spouse Housing: House Do you presently have visiting nurse or other home services: No Alcohol intake: never Smoking Status: Never smoker Smoked in Last 30 Days: No Use of substances other than those prescribed or required for medical reasons: No Currently Displaying Signs/Symptoms of Drug Intoxication Withdrawal: No Have you been hit, kicked, punched, or otherwise hurt by someone within the past year? If so, by whom?: No Do you feel safe in your current relationship?: Yes Is there a partner from a previous relationship who is making you feel unsafe now?: No Are you made to feel afraid or neglected: No Baptism Healthcare Practices: evangelical Advance Directives: No Advance Directives Information Provided: No Do you have thoughts of harming others: None Do you have a plan to hurt others: No Plan Recently lost weight without trying: Yes service: No Current occupational status: unemployed Meds Allergies Allergy/AdvReac Type Severity Reaction Status Date / Time No Known Allergies Allergy Mild NONE Unverified 02/19/20 17:08 Latex Allergy Unknown Uncoded 11/13/18 00:00 latex Allergy Unknown Uncoded 11/15/15 00:00 Home Medications Medication Instructions Recorded Confirmed Type No Known Home Meds 04/09/20 04/09/20 History Physical Exam Vital Signs: Vital Signs: Last Vital Signs Temp 98.2 F 04/10/20 11:24 Pulse 81 04/10/20 11:24 Resp 18 04/10/20 11:24 BP 103/67 04/10/20 11:24 Pulse Ox 98 04/10/20 11:24 Body Mass Index 52.9 Const: General: healthy appearing and no acute distress Nutritional Appearance: average body habitus Orientation/consciousness: patient oriented x3 Limitations: no limitations HENMT: Head: Yes normal to inspection Ears: hearing grossly normal bilaterally Mouth: Normal oral and palatal mucosa present Eyes: Sclerae: sclerae normal Pupils: Equal, round and reactive pupils present Neck: Neck: Yes normal visual inspection Chest: Chest palpation & inspection: normal inspection of the chest Resp: Effort & Inspection: normal respiratory effort Auscultation: clear to auscultation bilaterally Cardio: Palpation: normal PMI Rate: regular rate Rhythm: regular rhythm Heart sounds: S1 normal heart sound present, S2 normal heart sound present and no murmurs GI: Palpation (GI): Soft to palpation, nontender and No hepatosplenomegaly present Auscultation: normal bowel sounds Rectal Exam - Female: deferred Skin: General skin exam: no rashes or lesions noted Neuro: General: patient oriented x3, gait normal and moves all extremities Cranial nerves: Yes Equal, round and reactive pupils present and Yes Normal hearing present Psych: Appearance: grossly normal Mental Status: mental status grossly normal Results Labs CBC & Chem 7: 04/11/20 06:26 04/11/20 06:26 Labs: Short CBC 04/09/20 04/10/20 Range/Units 17:47 06:28 WBC 5.0 5.3 (4.8-10.8) X10*3/uL Hgb 6.2 L* 8.8 L D (12.0-16.0) g/dl Hct 23.5 L 30.6 L D (37-47) % Plt Count 485 H 413 H (160-400) X10*3/uL BMP 04/09/20 04/10/20 04/10/20 17:47 01:00 06:28 Sodium 141 139 138 Potassium 4.3 4.0 4.3 Chloride 107 110 H 108 Carbon Dioxide 26 24 22 BUN 10 9 8 L Creatinine 0.64 0.65 0.63 Calcium 7.8 L 7.3 L D 7.5 L Liver Function 04/09/20 04/10/20 Range/Units 17:47 01:00 Total Bilirubin 0.3 0.4 (0.0-1.0) mg/dL Direct Bilirubin 0.2 (0.0-0.5) mg/dL AST 23 16 (5-31) U/L ALT 20 18 (0-31) U/L Alkaline Phosphatase 86 71 (39-117) U/L Albumin 3.6 3.2 L (3.5-5.0) g/dL Urine 04/09/20 Range/Units 17:47 Urine Color YELLOW Urine Appearance CLEAR Urine pH 7.5 (5.0-8.0) Ur Specific [place] 1.015 (1.005-1.025) Urine Protein NEG (NEG-TRACE) MG/DL Urine Glucose (UA) NEG (NEG) MG/DL Assessment and Plan (1) Dysphagia: Status: Acute (2) Odynophagia: Status: Acute (3) Anemia: Qualifiers: Anemia type: iron deficiency Iron deficiency anemia type: chronic blood loss Qualified Code(s): D50.0 - Iron deficiency anemia secondary to blood loss (chronic) Status: Acute 49 Year old [place]serratian-speaking female (understands some Fijian) admitted with severe anemia which has improved after blood transfusion. Patient gives history of dysphagia and odynophagia for the past 7-8 months associated with 11 lb weight loss. Her symptoms are worrisome for erosive esophagitis with benign or malignant stricture, esophageal candidiasis or esophageal motility disorder. RECCOMENDATIONS: 1. Oral PPI omeprazole twice daily. 2. I will schedule her for an upper endoscopy with possible dilation on 04/12/2020. Procedure and potential complications including bleeding, perforation, drug reaction and aspiration were reviewed with the patient with the help of a environmental services project manager. Patient is willing to proceed.
[2020-04-10] MEDS: Ferrous Sulfate 324 MG TABLET.DR PO ×2 (12:16→16:14)
[2020-04-10] MEDS: Omeprazole 40 MG CAPSULE.DR PO (18:15)
[2020-04-11] VITALS (7 sets, daily range): BP systolic 103–121; BP diastolic 61–75; PULSE 65–85; RESP 18; TEMP 36.1–37.1; O2SAT 97–100
[2020-04-11] MEDS: Omeprazole 40 MG CAPSULE.DR PO ×2 (05:27→16:15)
[2020-04-11 07:11] LABS: MANUAL DIFF FLAG NO
[2020-04-11 07:21] LABS: Basophils Percent Auto 0.8 % (0-2); Eosinophils Absolute Auto 0.4 X10*3/uL (0.0-0.4); Eosinophils Percent Auto 7.4 % (0-4); Hematocrit 31.3 % (37-47); Hemoglobin 9.1 g/dl (12.0-16.0); Imm Gran Abs Auto 0.01 X10*3/uL (0.00-0.03); Imm Gran Pct Auto 0.2 % (0.0-0.4); Lymphocytes Absolute Auto 1.2 X10*3/uL (1.2-4.9); Lymphocytes Percent Auto 24.4 % (20-40); Mean Corpuscular HGB Conc 29.1 g/dl (31.0-35.0); Mean Corpuscular Hemoglobin 19.4 pg (27.0-33.0); Mean Corpuscular Volume 66.7 fL (80-98); Mean Platelet Volume 8.9 fL (9.4-12.3); Monocytes Absolute Auto 0.4 X10*3/uL (0.1-1.2); Monocytes Percent Auto 8.8 % (2-11); Neutrophils Absolute Auto 2.9 X10*3/uL (2.0-8.3); Neutrophils Percent Auto 58.4 % (45-73); Platelet Count 410 X10*3/uL (160-400); Red Blood Count 4.69 X10*6/uL (4.20-5.50); Red Cell Distribution Width 29.3 % (11.0-16.0)
[2020-04-11 08:00] LABS: Anion Gap 9 (12-20); Blood Urea Nitrogen 10 mg/dL (9-16); Calcium 7.5 mg/dL (8.4-10.2); Carbon Dioxide 25 mmol/L (22-29); Chloride 109 mmol/L (96-108); Creatinine Clr Calc Pharmacy 109.5; Estimated Glomerular Filt Rate > 60; Glucose Random 90 mg/dL (60-115); Potassium 4.1 mmol/l (3.3-5.1); Sodium 139 mmol/L (135-145)
--- NOTE | 2020-04-11 08:44 | MHC.CM.PN ---
CM met with pt with the assistance of painter and paperhanger apprentice. Pt reports she lives at home with her and daughter. Pt is independent with care and mobility and uses a nebulizer PRN. Pt reports she has no community / home services. Ptl completed a HCP today naming her son, Rene Salomon ([phone]) as her only agent. current DC plan is home with no services pt will self arrange transport
[2020-04-11] MEDS: 0.9 % Sodium Chloride Flush 3 ML SYRINGE IVFLUSH ×2 (09:39→13:33)
[2020-04-11] MEDS: Ferrous Sulfate 324 MG TABLET.DR PO ×2 (09:39→16:15)
--- NOTE | 2020-04-11 11:13 | PM.HEMONCPN ---
Medical Summary - Medical Summary Chief complaint: iron deficiency anemia Medical Summary: The ferritin of less than one confims iron dificiency. Interval History Interval history: She feels well today. Review of Systems - Eyes Reports other - ENT Reports other - Cardiovascular Reports shortness of breath - Respiratory Reports dyspnea - Gastrointestinal Reports abdominal pain - Genitourinary Reports other - Musculoskeletal Reports other - Integumentary/Breasts Skin/Breast: Reports other - Neurologic Reports system reviewed and no additional complaints, except as documented, Reports hearing normal, Reports weakness, Denies headache(s) - Psychiatric Reports change in appetite - Endocrine Reports other - Hematologic/Lymphatic Reports other - Allergic/Immunologic Reports other [facility] Medical History: Medical History (Last Reviewed 04/10/20 @ 05:30 by Kalyani York RN) No known health problems Functional capacity: independent ambulation Smoking status: Never smoker Home Medications and Allergies Current Medications: Current Medications Generic Name Dose Route Start Last Admin Trade Name Freq PRN Reason Stop Dose Admin Ferrous Sulfate 324 mg 04/10/20 11:25 04/11/20 09:39 Ferrous Sulfate 324 Mg Tablet. PO 324 mg BIDWM [facility] Administration Omeprazole 40 mg 04/10/20 17:10 04/11/20 05:27 Omeprazole 40 Mg Capsule. PO 40 mg BID@[id number],[id number] [facility] Administration Pharmacy Consult 1 each 04/09/20 21:54 Consult Rx Perform Med Rec MISCELLANE ONCE PRN Consult order Sodium Chloride 3 ml 04/10/20 08:00 04/11/20 09:39 0.9 % Sodium Chloride Flush 3 Ml Syringe IVFLUSH 3 ml QSHIFT [facility] Administration Home Medications Medication Instructions Recorded Confirmed Type No Known Home Meds 04/09/20 04/09/20 History Allergies Allergy/AdvReac Type Severity Reaction Status Date / Time No Known Allergies Allergy Mild NONE Unverified 02/19/20 17:08 Latex Allergy Unknown Uncoded 11/13/18 00:00 latex Allergy Unknown Uncoded 11/15/15 00:00 Exam Vital signs: Vital Signs Temp 98 F 04/11/20 11:00 Pulse 84 04/11/20 11:00 Resp 18 04/11/20 11:00 BP 121/75 04/11/20 11:00 Pulse Ox 100 04/11/20 11:00 Intake & Output 04/10/20 04/11/20 04/11/20 18:59 06:59 18:59 Intake Total 210 / 690 480 / 690 Output Total 400 / 400 Balance -190 / 290 480 / 290 Urine Output (Average ml/kg/hr) 0.30 0.30 Intake: Intake, Oral Amount 210 / 690 480 / 690 Output: Output, Urine Amount 400 / 400 Other: Breakfast % Eaten 100% Lunch % Eaten 100% Number of Unmeasured Voids 2 Urine Bathroom Urine Color Yellow Weight 111 kg Body Mass Index 52.9 - Constitutional Present: no acute distress - Routine HEENT Exam Head: Present: atraumatic - Routine Neck Exam Present: full ROM - Routine Chest/Breast/Axilla Exam Breast: Present: Normal Exam - Routine Respiratory Exam Present: decreased breath sounds - Routine Cardiovascular Exam Cardiovascular: Present: RRR - Routine Abdominal Exam Present: diminished bowel sounds, nontender - Routine Exam Patient deferred: external exam - Routine Extremities Exam Present: full ROM - Routine Back/Spine/Pelvis Exam Back/Spine: Present: full ROM - Routine Neurological Exam Present: alert, oriented X3 Data - Labs CBC & Chem 7: 04/11/20 06:26 04/11/20 06:26 Labs: Laboratory Results - last 24 hr 04/11/20 04/11/20 06:26 06:26 WBC 5.0 RBC 4.69 Hgb 9.1 L Hct 31.3 L MCV 66.7 L MCH 19.4 L MCHC 29.1 L RDW 29.3 H Plt Count 410 H MPV 8.9 L Immature Gran % (Auto) 0.2 Neut % (Auto) 58.4 Lymph % (Auto) 24.4 [place] % (Auto) 8.8 Eos % (Auto) 7.4 H Baso % (Auto) 0.8 Lymph # (Auto) 1.2 [place] # (Auto) 0.4 Eos # (Auto) 0.4 Baso # (Auto) 0.0 Abs Immat Gran (auto) 0.01 Absolute Neuts (auto) 2.9 Absolute Nucleated RBC 0.000 Nucleated RBC % (auto) 0.0 Sodium 139 Potassium 4.1 Chloride 109 H Carbon Dioxide 25 Anion Gap 9 L BUN 10 Creatinine 0.67 Estim Creat Clear Calc 109.5 Estimated GFR > 60 Random Glucose 90 Calcium 7.5 L Progress Note: A/P (1) Anemia Start date: 04/11/20 Status: Acute Assessment and plan: The new microcytosis is likely iron deficiency from blood loss or malabsorption. She has been transfused. Please check ferritin and reticulocytes. will follow. - Time Spent With Patient Total time spent is greater than 50% in coordination of care (as documented) at patient's floor/unit and/or counseling patient: 15 - 24 minutes
--- NOTE | 2020-04-11 12:19 | HO.PM.IMPN ---
Subjective Subjective Date of Service: 04/11/20 Interval History: the patient was seen and evaluated this morning Laying in bed, feels comfortable Denies any fever, chills or shortness of breath No reported other overnight events. Review of Systems Review of Systems: Yes all other systems are reviewed and are negative Physical Exam Vital Signs: Vital Signs: Last Vital Signs Temp 98 F 04/11/20 11:00 Pulse 84 04/11/20 11:00 Resp 18 04/11/20 11:00 BP 121/75 04/11/20 11:00 Pulse Ox 100 04/11/20 11:00 Body Mass Index 52.9 Constitutional : Alert, oriented, not in distress Neck : Normal inspection, Supple, pain and difficulty with swallowing Cardiovascular : RRR, S1 S2, no lower extremity edema Respiratory : Good bilateral air entry, no crackles, wheezes or rhonchi Gastrointestinal: soft, lax, Normal bowel sounds, Non tender Skin : Warm/Dry, No rash Neurological : Alert & oriented x3, No focal deficit Objective Data Current Medications Generic Name Dose Route Start Last Admin Trade Name Freq PRN Reason Stop Dose Admin Ferrous Sulfate 324 mg 04/10/20 11:25 04/11/20 09:39 Ferrous Sulfate 324 Mg Tablet. PO 324 mg BIDWM [facility] Administration Omeprazole 40 mg 04/10/20 17:10 04/11/20 05:27 Omeprazole 40 Mg Capsule. PO 40 mg BID@[id number] [facility] Administration Pharmacy Consult 1 each 04/09/20 21:54 Consult Rx Perform Med Rec MISCELLANE ONCE PRN Consult order Sodium Chloride 3 ml 04/10/20 08:00 04/11/20 09:39 0.9 % Sodium Chloride Flush 3 Ml Syringe IVFLUSH 3 ml QSHIFT [facility] Administration Labs CBC & Chem 7: 04/11/20 06:26 04/11/20 06:26 Assessment and Plan (1) Odynophagia: Status: Acute (2) Dysphagia: Status: Acute (3) Weakness generalized: Status: Acute (4) Dizziness: Status: Acute (5) H/O: hysterectomy: Status: Acute (6) Symptomatic anemia: Status: Acute (7) Iron deficiency anemia: Status: Acute Assessment and Plan: A 44 years old lady who presented to the hospital with dizziness and weakness found to have significant anemia. Symptomatic anemia Iron deficiency anemia Hemoglobin stable after 2 units of transfusion 2 No proof of GI bleed but seems to be the most likely diagnosis Continue omeprazole b.i.d. 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
[2020-04-11] MEDS: Sodium Ferric Gluconat/Sucrose 125 MG in 0.9 % Sodium Chloride 100 ML 100 MG IV (13:25)
[2020-04-12] VITALS (13 sets, daily range): BP systolic 83–130; BP diastolic 42–85; PULSE 63–130; RESP 15–20; TEMP 36.1–37.2; O2SAT 97–100; BMI 52.9; BMI 23.8
[2020-04-12] MEDS: 0.9 % Sodium Chloride Flush 3 ML SYRINGE IVFLUSH ×2 (00:41→08:23)
[2020-04-12 04:23] LABS: Hematocrit 33.7 % (37-47); Hemoglobin 9.8 g/dl (12.0-16.0); Mean Corpuscular HGB Conc 29.1 g/dl (31.0-35.0); Mean Corpuscular Hemoglobin 19.7 pg (27.0-33.0); Mean Corpuscular Volume 67.7 fL (80-98); Platelet Count 425 X10*3/uL (160-400); Red Blood Count 4.98 X10*6/uL (4.20-5.50); Red Cell Distribution Width 29.6 % (11.0-16.0); White Blood Count 5.8 X10*3/uL (4.8-10.8)
[2020-04-12 04:54] LABS: Anion Gap 10 (12-20); Blood Urea Nitrogen 11 mg/dL (9-16); Calcium 8.3 mg/dL (8.4-10.2); Carbon Dioxide 27 mmol/L (22-29); Chloride 107 mmol/L (96-108); Creatinine Clr Calc Pharmacy 104.8; Estimated Glomerular Filt Rate > 60; Glucose Random 87 mg/dL (60-115); Sodium 140 mmol/L (135-145)
[2020-04-12] MEDS: Lactated Ringers 500 ML 999 ML IVCONT (05:15)
[2020-04-12] MEDS: Omeprazole 40 MG CAPSULE.DR PO (05:20)
--- NOTE | 2020-04-12 08:13 | P.CDIC_ITS ---
CDI Concurrent Query Service Date: 04/12/20 Documentation Clarification: Please clarify if you are treating a proba ble/suspected/likely or confirmed: Iron deficiency anemia 2nd to chronic blood loss anemia Iron deficiency anemia 2nd to acute on chronic blood loss anemia Please specify if known Provider Response: Other (Iron deficiency anemia 2nd to chronic blood loss anemia) Other Diagnosis: Iron deficiency anemia 2nd to chronic blood loss anemia PLEASE DO NOT DELETE/MODIFY EXISTING CONTENT Additional information is needed in order to code to the highest accuracy and appropriate Severity of Illness (SOI). Please clarify the information noted below in your progress notes and discharge summary. Risk Factors/Clinical Indicators/Treatments Generalized weakness, dizzy, poor appetite HGB 6.2 HCT 23.5 Transfuse 2 units PRBC Iron deficiency anemia 2nd to blood loss Oncology notes new microcytosis is likely iron deficiency from blood loss or malabsorption. CDS: Ashley Gifford CCS, CDIS Contact Number: [phone] Please Review the information above and exercise your independent professional judgment in responding to the query. If you concur, pleas document in the PROGRESS NOTES and DISCHARGE SUMMARY. If you do not agree with the query, please document in the query above. THIS QUERY IS PART OF THE PERMANENT MEDICAL RECORD
[2020-04-12] MEDS: Ferrous Sulfate 324 MG TABLET.DR PO (08:23)
--- NOTE | 2020-04-12 12:45 | HO.ANESPROP2 ---
HPI - Anesthesia Eval Consult details Narrative: 49 F with anemia and dysphagia PMFSH Past Medical History Medical History No known health problems Functional capacity: independent ambulation Social History Social History Household Members: Spouse Housing: House Do you presently have visiting nurse or other home services: No Alcohol intake: never Smoking Status: Never smoker Smoked in Last 30 Days: No Use of substances other than those prescribed or required for medical reasons: No Currently Displaying Signs/Symptoms of Drug Intoxication Withdrawal: No Have you been hit, kicked, punched, or otherwise hurt by someone within the past year? If so, by whom?: No Do you feel safe in your current relationship?: Yes Is there a partner from a previous relationship who is making you feel unsafe now?: No Are you made to feel afraid or neglected: No Jehovah'S Witness Healthcare Practices: anglican Advance Directives: No Advance Directives Information Provided: Yes Advance Directives on File: No Do you have thoughts of harming others: None Do you have a plan to hurt others: No Plan Recently lost weight without trying: Yes service: No Current occupational status: unemployed Meds Allergies Allergy/AdvReac Type Severity Reaction Status Date / Time No Known Allergies Allergy Mild NONE Unverified 02/19/20 17:08 Latex Allergy Unknown Uncoded 11/13/18 00:00 latex Allergy Unknown Uncoded 11/15/15 00:00 Home Medications Medication Instructions Recorded Confirmed Type No Known Home Meds 04/09/20 04/09/20 History Exam Exam Date and Time: April 12, 2020 1349 Height,Weight and Vital Signs: Height 4 ft 9 in Weight 49.895 kg Last Vital Signs Temp 97.0 F 04/12/20 12:16 Pulse 85 04/12/20 12:16 Resp 18 04/12/20 12:16 BP 118/77 04/12/20 12:16 Pulse Ox 100 04/12/20 12:16 Pertinent Lab Results Pertinent Lab Results: Laboratory Tests 04/09/20 04/09/20 04/09/20 17:47 17:47 17:47 WBC 5.0 RBC 4.05 L Hgb 6.2 L* Hct 23.5 L MCV 58.0 L MCH 15.3 L MCHC 26.4 L RDW 18.9 H Plt Count 485 H MPV 9.1 L Immature Gran % (Auto) 0.4 Neut % (Auto) 60.3 Lymph % (Auto) 24.1 Sampson % (Auto) 8.6 Eos % (Auto) 6.0 H Baso % (Auto) 0.6 Lymph # (Auto) 1.2 Sampson # (Auto) 0.4 Eos # (Auto) 0.3 Baso # (Auto) 0.0 Abs Immat Gran (auto) 0.02 Absolute Neuts (auto) 3.0 Absolute Nucleated RBC 0.000 Nucleated RBC % (auto) 0.0 Smear Tech's Comments Smear Path Review SEE NOTE Absolute Retic Percent Retic Immature Retic Fraction Retic Hgb Equivalent Hold Purple Top SEE NOTE PT 13.2 H INR 1.1 Sodium Potassium Chloride Carbon Dioxide Anion Gap BUN Creatinine Estim Creat Clear Calc Estimated GFR Random Glucose Calcium Magnesium Iron TIBC % Saturation Unsat Iron Binding Ferritin Total Bilirubin Direct Bilirubin AST ALT Alkaline Phosphatase Total Protein Albumin Urine Color Urine Appearance Urine pH Ur Specific [place] Urine Protein Urine Glucose (UA) Urine Ketones Urine Blood Urine Nitrite Ur Leukocyte Esterase Stool Occult Blood Coronavirus (PCR) Blood Type Antibody Screen Crossmatch 04/09/20 04/09/20 04/09/20 17:47 17:47 18:26 WBC RBC Hgb Hct MCV MCH MCHC RDW Plt Count MPV Immature Gran % (Auto) Neut % (Auto) Lymph % (Auto) Sampson % (Auto) Eos % (Auto) Baso % (Auto) Lymph # (Auto) Sampson # (Auto) Eos # (Auto) Baso # (Auto) Abs Immat Gran (auto) Absolute Neuts (auto) Absolute Nucleated RBC Nucleated RBC % (auto) Smear Tech's Comments Smear Path Review Absolute Retic Percent Retic Immature Retic Fraction Retic Hgb Equivalent Hold Purple Top PT INR Sodium 141 Potassium 4.3 Chloride 107 Carbon Dioxide 26 Anion Gap 12 BUN 10 Creatinine 0.64 Estim Creat Clear Calc 114.6 Estimated GFR > 60 Random Glucose 80 Calcium 7.8 L Magnesium 2.2 Iron 11 L TIBC 368 % Saturation 3 L Unsat Iron Binding 357 Ferritin < 1 L Total Bilirubin 0.3 Direct Bilirubin 0.2 AST 23 ALT 20 Alkaline Phosphatase 86 Total Protein 6.1 L Albumin 3.6 Urine Color YELLOW Urine Appearance CLEAR Urine pH 7.5 Ur Specific [place] 1.015 Urine Protein NEG Urine Glucose (UA) NEG Urine Ketones 15 Urine Blood NEG Urine Nitrite NEG Ur Leukocyte Esterase NEG Stool Occult Blood Coronavirus (PCR) Blood Type O Positive Antibody Screen NEGATIVE Crossmatch See Detail 04/09/20 04/10/20 04/10/20 19:55 01:00 01:00 WBC RBC Hgb Hct MCV MCH MCHC RDW Plt Count MPV Immature Gran % (Auto) Neut % (Auto) Lymph % (Auto) Sampson % (Auto) Eos % (Auto) Baso % (Auto) Lymph # (Auto) Sampson # (Auto) Eos # (Auto) Baso # (Auto) Abs Immat Gran (auto) Absolute Neuts (auto) Absolute Nucleated RBC Nucleated RBC % (auto) Smear Tech's Comments Smear Path Review Absolute Retic Percent Retic Immature Retic Fraction Retic Hgb Equivalent Hold Purple Top PT INR Sodium 139 Potassium 4.0 Chloride 110 H Carbon Dioxide 24 Anion Gap 9 L BUN 9 Creatinine 0.65 Estim Creat Clear Calc 112.9 Estimated GFR > 60 Random Glucose 95 Calcium 7.3 L D Magnesium Iron TIBC % Saturation Unsat Iron Binding Ferritin Total Bilirubin 0.4 Direct Bilirubin AST 16 ALT 18 Alkaline Phosphatase 71 Total Protein 5.3 L Albumin 3.2 L Urine Color Urine Appearance Urine pH Ur Specific [place] Urine Protein Urine Glucose (UA) Urine Ketones Urine Blood Urine Nitrite Ur Leukocyte Esterase Stool Occult Blood NEG Coronavirus (PCR) NEGATIVE Blood Type Antibody Screen Crossmatch 04/10/20 04/10/20 04/11/20 06:28 06:28 06:26 WBC 5.3 5.0 RBC 4.54 4.69 Hgb 8.8 L D 9.1 L Hct 30.6 L D 31.3 L MCV 67.4 L D 66.7 L MCH 19.4 L 19.4 L MCHC 28.8 L 29.1 L RDW 29.7 H 29.3 H Plt Count 413 H 410 H MPV 9.1 L 8.9 L Immature Gran % (Auto) 0.0 0.2 Neut % (Auto) 58.7 58.4 Lymph % (Auto) 25.2 24.4 Sampson % (Auto) 8.5 8.8 Eos % (Auto) 6.8 H 7.4 H Baso % (Auto) 0.8 0.8 Lymph # (Auto) 1.3 1.2 Sampson # (Auto) 0.5 0.4 Eos # (Auto) 0.4 0.4 Baso # (Auto) 0.0 0.0 Abs Immat Gran (auto) 0.00 0.01 Absolute Neuts (auto) 3.1 2.9 Absolute Nucleated RBC 0.000 0.000 Nucleated RBC % (auto) 0.0 0.0 Smear Tech's Comments VERIFIED Smear Path Review Absolute Retic 0.040 Percent Retic 0.9 Immature Retic Fraction 37.0 H Retic Hgb Equivalent 15.4 L Hold Purple Top PT INR Sodium 138 Potassium 4.3 Chloride 108 Carbon Dioxide 22 Anion Gap 12 BUN 8 L Creatinine 0.63 Estim Creat Clear Calc 116.5 Estimated GFR > 60 Random Glucose 88 Calcium 7.5 L Magnesium Iron 23 L TIBC 325 % Saturation 7 L Unsat Iron Binding 302 Ferritin < 1 L Total Bilirubin Direct Bilirubin AST ALT Alkaline Phosphatase Total Protein Albumin Urine Color Urine Appearance Urine pH Ur Specific [place] Urine Protein Urine Glucose (UA) Urine Ketones Urine Blood Urine Nitrite Ur Leukocyte Esterase Stool Occult Blood Coronavirus (PCR) Blood Type Antibody Screen Crossmatch 04/11/20 04/12/20 04/12/20 06:26 04:10 04:10 WBC 5.8 RBC 4.98 Hgb 9.8 L Hct 33.7 L MCV 67.7 L MCH 19.7 L MCHC 29.1 L RDW 29.6 H Plt Count 425 H MPV 9.0 L Immature Gran % (Auto) Neut % (Auto) Lymph % (Auto) Sampson % (Auto) Eos % (Auto) Baso % (Auto) Lymph # (Auto) Sampson # (Auto) Eos # (Auto) Baso # (Auto) Abs Immat Gran (auto) Absolute Neuts (auto) Absolute Nucleated RBC 0.000 Nucleated RBC % (auto) 0.0 Smear Tech's Comments Smear Path Review Absolute Retic Percent Retic Immature Retic Fraction Retic Hgb Equivalent Hold Purple Top PT INR Sodium 139 140 Potassium 4.1 4.0 Chloride 109 H 107 Carbon Dioxide 25 27 Anion Gap 9 L 10 L BUN 10 11 Creatinine 0.67 0.70 Estim Creat Clear Calc 109.5 104.8 Estimated GFR > 60 > 60 Random Glucose 90 87 Calcium 7.5 L 8.3 L D Magnesium Iron TIBC % Saturation Unsat Iron Binding Ferritin Total Bilirubin Direct Bilirubin AST ALT Alkaline Phosphatase Total Protein Albumin Urine Color Urine Appearance Urine pH Ur Specific [place] Urine Protein Urine Glucose (UA) Urine Ketones Urine Blood Urine Nitrite Ur Leukocyte Esterase Stool Occult Blood Coronavirus (PCR) Blood Type Antibody Screen Crossmatch Airway TM Dist: >3cm Neck ROM: Full Loose/Missing/Broken Teeth: No Assessment and Plan Assessment Anesthesia Assessment: Anesthesia Plan Discussed and Chart Reviewed Final Anesthetic Review NPO: Yes ASA Class: III Final Preanesthetic Review: No Changes in Pt Med Stat, Meds/Allgs Chart Reviewed, Consent Obtained/Reviewed and Anes Risks/Benef Reviewed Patient Risk: Intermediate Procedure Risk: Intermediate Anesthetic Plan Anesthetic Plan: MAC: Disposition: Standard PACU
--- NOTE | 2020-04-12 13:12 | MHC.SHP ---
Pre-Procedural Eval Section A The patient is an INPATIENT: Yes Changes since office visit: Yes Patient answered all questions The History & Physical has been completed within 30 days and I have reviewed it.: Yes Section B Chief Complaint: abnormal lab work/ANEMIA Allergies: Allergies Allergy/AdvReac Type Severity Reaction Status Date / Time No Known Allergies Allergy Mild NONE Unverified 02/19/20 17:08 Latex Allergy Unknown Uncoded 11/13/18 00:00 latex Allergy Unknown Uncoded 11/15/15 00:00 Plan Patient has been examined and remains a candidate for the planned procedure
--- NOTE | 2020-04-12 13:13 | P.BOP_ITS ---
Brief Operative Note Date of procedure: 04/12/20 Pre-op diagnosis: Dysphagia, severe anemia Post-op diagnosis: other (Multiple gastric and esophageal masses with partial esophageal obstruction) Procedure: FLEXIBLE TRANSORAL UPPER GASTROINTESTINAL ENDOSCOPY WITH BIOPSIES Consent: Indications for the procedure and potential complications of bleeding, perforation, reaction to medications and missed diagnosis were discussed with the patient and informed consent was obtained. Instrument: Olympus GIF H 190 mid size upper endoscope Monitoring: Vital signs and clinical assessment, continuous EKG monitoring, Pulse oximetry, Carbon Dioxide monitoring and blood pressure monitoring were done throughout the procedure. Procedure: The patient was placed in the left lateral decubitis position and pre-procedure medications were administered and a bite block was placed. The endoscope was inserted into the mouth and advanced under direct vision to the third part of duodenum. A careful inspection was made as the upper endoscope was withdrawn including a retroflexed examination of the proximal stomach; Findings and interventions are described below. Findings: Larynx: Normal Esophagus: GE junction at 36 cms. A polypoidal ulcerated mass in the distal esophagus extending from 32 to 36 cms with partial obstruction. Stomach: A large fraible polypoidal, fungating, ulcerated, circumferential mass involving the cardia and fundus. Multiple additional polypoidal masses involving the body along the lesser curve extending close to the antrum. Another mass involving the gastric body along the great curve - multiple biopsies were obtained. Mild gastric erythema. Biopsies were obtained. Circumferental mass seen on retroflexed examination of the cardia. Duodenum: Normal bulb and descending duodenum Intervention: Biopsies as noted above Impression and Post Procedure Diagnosis: Endoscopy Findings: ESOPHAGUS: GE junction at 36 cms. A polypoidal ulcerated mass in the distal esophagus extendingf from 32 to 36 cms with partial obstruction. STOMACH: A large fraible polypoidal, fungating, ulcerated, circumferential mass involving the cardia and fundus. Multiple additional polypoidal masses involving the body along the lesser curve extending close to the antrum. Another mass involving the gastric body along the great curve - multiple biopsies were obtained. Mild gastric erythema. Biopsies were obtained. Circumferental mass seen on retroflexed examination of the cardia. Plan: Await pathology results. Chest, abdominal and Pelvic CT scan. Urgent referral to Oncology. Above findings were reviewed with the patient. Surgeon: Nathalie Bains MD Anesthesia: MAC (Dr Sanders) Money Room Teller: Elizabeth Luna Estimated blood loss (mL): 5 Pathology: other (A. Gastric antrum, B. Gastric mass, C. Mass distal esophagus) Condition: stable Disposition: PACU
--- NOTE | 2020-04-12 14:20 | HO.PM.IMPN ---
Subjective Subjective Date of Service: 04/12/20 Interval History: the patient was seen and evaluated this morning Laying in bed, feels comfortable Denies any fever, chills or shortness of breath No reported other overnight events. Review of Systems Review of Systems: Yes all other systems are reviewed and are negative Constitutional No fever, chills or weakness No chest pain, palpitation No shortness of breath or coughing Mild difficulty swallowing, mild nausea. Tolerating diet No urinary symptoms No any rash or wounds Physical Exam Vital Signs: Vital Signs: Last Vital Signs Temp 97.4 F 04/12/20 13:42 Pulse 84 04/12/20 13:42 Resp 16 04/12/20 13:42 BP 83/42 L 04/12/20 13:42 Pulse Ox 97 04/12/20 13:42 Body Mass Index 23.8 Constitutional : Alert, oriented, not in distress Neck : Normal inspection, Supple, pain and difficulty with swallowing Cardiovascular : RRR, S1 S2, no lower extremity edema Respiratory : Good bilateral air entry, no crackles, wheezes or rhonchi Gastrointestinal: soft, lax, Normal bowel sounds, Non tender Skin : Warm/Dry, No rash Neurological : Alert & oriented x3, No focal deficit Objective Data Current Medications Generic Name Dose Route Start Last Admin Trade Name Freq PRN Reason Stop Dose Admin Ferrous Sulfate 324 mg 04/10/20 11:25 04/12/20 08:23 Ferrous Sulfate 324 Mg Tablet.Dr DEE 324 mg BIDWM [facility] Administration Omeprazole 40 mg 04/10/20 17:10 04/12/20 05:20 Omeprazole 40 Mg Capsule.Dr DEE 40 mg BID@8040,[id number] [facility] Administration Pharmacy Consult 1 each 04/09/20 21:54 Consult Rx Perform Med Rec MISCELLANE ONCE PRN Consult order Sodium Chloride 3 ml 04/10/20 08:00 04/12/20 08:23 0.9 % Sodium Chloride Flush 3 Ml Syringe IVFLUSH 3 ml QSHIFT [facility] Administration Labs CBC & Chem 7: 04/12/20 04:10 04/12/20 04:10 Assessment and Plan (1) Odynophagia: Status: Acute (2) Dysphagia: Status: Acute (3) Weakness generalized: Status: Acute (4) Dizziness: Status: Acute (5) H/O: hysterectomy: Status: Acute (6) Symptomatic anemia: Status: Acute (7) Iron deficiency anemia: Status: Acute Assessment and Plan: A 44 years old lady who presented to the hospital with dizziness and weakness found to have significant anemia. Symptomatic anemia Iron deficiency anemia Hemoglobin stable after 2 units of transfusion 2 Seems to be secondary to chronic GI bleeding from esophageal mass Continue omeprazole b.i.d. for now EGD showed esophageal mass GI input appreciated Received iron supplement IV Esophageal mass Noticed on EGD Biopsy sent for pathology To do CT scan chest, abdomen and pelvis for staging To get Oncology involved Difficulty swallowing Complaining mainly dysphagia and sticking feeling in her throat Had barium study which was normal last month Likely secondary to esophageal mass DVT ppx SCds
--- NOTE | 2020-04-12 15:02 | CT_ITS ---
EXAMINATION: CT CHEST, ABDOMEN AND PELVIS WITH IV CONTRAST CLINICAL INFORMATION: Esophageal mass. Staging. COMPARISON: Previous chest x-ray most recent 04/09/2020 and chest CTA 03/25/2020 and barium swallow 03/31/2020 TECHNIQUE: Axial images through the chest, abdomen and pelvis following oral and 85 mL Omnipaque 350 intravenous contrast. Sagittal and coronal reconstructions on the technologist workstation were performed. Patient dose 109+2 0 9 mg/cm. FINDINGS: Chest: There is a 6 mm calcified right upper lobe pulmonary nodule. The lungs are otherwise clear. The heart does not appear enlarged. The thoracic aorta is normal in caliber. There are no enlarged hilar or mediastinal lymph nodes. There is no pericardial effusion. No esophageal mass is evident by CT scan. There is no pleural effusion or pleural thickening. There are large dystrophic calcifications in the right breast. No chest wall mass or enlarged axillary lymph nodes are seen. Abdomen and pelvis: The liver is unremarkable. The gallbladder is unremarkable. There is no biliary duct dilatation. The spleen is upper normal in size measuring 12.5 cm in length. The right adrenal gland and and kidneys are unremarkable. The bladder is unremarkable. There is diffuse wall thickening of the fundus and body of the stomach with multiple lobulated nodular appearing masses. Some nodular masses appear to extend outside the wall of the stomach, particularly posteriorly at the gastric fundus, along the lesser curvature and along the greater curvature extending toward the body of the pancreas. It is difficult to separate from the enlarged perigastric lymph nodes. There is question of enlarged perigastric lymph node adjacent to the body of the stomach measuring 2.5 cm axial image 20 series 3 as this is lower in attenuation to the wall of the stomach. There is a higher attenuation masslike lesion adjacent to the greater curvature of the stomach and measures 2 cm axial image 26 series 3 more suggestive of mass in the wall of the stomach. There are nodular masses that extend into the retroperitoneum that are slightly lower attenuation to the wall of the stomach questionable for a large perigastric lymph nodes. Abutting the left adrenal gland measuring 2.1 x 2.9 cm. There is a large slightly low-attenuation lymph node in the sherrie hepatis that measures 2 x 2.4 cm. There is an enlarged precaval lymph node that measures 1.2 x 1.7 cm. There is a peritoneal nodule just deep to the right abdominal wall axial image 40 series 3. There are multiple high attenuation peritoneal nodules in the infraumbilical region, largest measuring 1.8 cm axial image 47 series 3 and more inferiorly in the right rectus muscle measuring 6 mm axial image 56 series 3 and just deep to the abdominal wall in the infraumbilical region measuring 9 mm axial image 59 and 61 and a smaller 5 mm lesion axial image 58 series 3. There is no ascites. The small and large bowel is unremarkable. The appendix is not seen. The bladder is unremarkable. No pelvic mass is seen. There is no ascites. Vascular structures are unremarkable. There is an umbilical hernia containing fat. Review of bone windows demonstrates small sclerotic lesions in the left acetabulum, right iliac bone, right L2 vertebral body and right femoral neck. These may represent bone islands. CT/CT abdomen w con IMPRESSION: Chest: Calcified right upper lobe nodule probably representing a calcified granuloma. No evidence of metastatic disease. Abdomen and pelvis: Diffuse wall thickening of the proximal stomach with multiple nodular appearing masslike lesions. Some of these lesions appear to extend outside the wall of the stomach and abut the left adrenal gland and tail of the pancreas. There are enlarged perigastric, periportal and precaval lymph nodes. There are peritoneal nodules deep to the right lower abdominal wall and in the infraumbilical region suggestive of peritoneal disease. Primary gastric cancer and gastric lymphoma should be considered.
[2020-04-12] MEDS: iohexoL 350 MG/ML 100 ML INFUS..BTL IV (16:09)
[2020-04-13] VITALS: BP 102/51; PULSE 74; RESP 16; TEMP 36.4; O2SAT 98
[2020-04-13 03:17] VITALS: BP 98/58; PULSE 78; RESP 16; TEMP 36.8; O2SAT 98
[2020-04-13 07:39] VITALS: BP 119/65; PULSE 89; RESP 18; TEMP 36.2; O2SAT 99
[2020-04-13 07:39] LABS: Anion Gap 11 (12-20); Blood Urea Nitrogen 10 mg/dL (9-16); Calcium 8.1 mg/dL (8.4-10.2); Carbon Dioxide 24 mmol/L (22-29); Chloride 109 mmol/L (96-108); Creatinine Clr Calc Pharmacy 74.3; Estimated Glomerular Filt Rate > 60; Glucose Random 88 mg/dL (60-115); Sodium 140 mmol/L (135-145)
[2020-04-13 07:52] LABS: Hematocrit 31.7 % (37-47); Hemoglobin 9.2 g/dl (12.0-16.0); Mean Corpuscular Hemoglobin 19.5 pg (27.0-33.0); Mean Corpuscular Volume 67.3 fL (80-98); Platelet Count 391 X10*3/uL (160-400); Red Blood Count 4.71 X10*6/uL (4.20-5.50); Red Cell Distribution Width 30.5 % (11.0-16.0); White Blood Count 5.9 X10*3/uL (4.8-10.8)
--- NOTE | 2020-04-13 08:01 | P.CONGS_ITS ---
History of Present Illness Consult details Consult date: 04/13/20 Narrative: Patient is a pleasant 49- year-old female with a past medical history of hysterectomy back in 2010 who presented to [facility] for complaints of dizziness and weakness over the past two months. She states that she started feeling unwell back in August of 2019. She had seen her PCP and was prescribed antibiotics for treatment for Pneumonia . She continued to feel unwell and was told that it was possibly related to COVID . She continued to lose weight and could barely eat due to significant dysphagia (only able to tolerate liquids and mashed food). A barium was performed which was negative. Mendoza bsequently, Ms. Cabrera presented to [facility] following worsening dizziness and weakness. She was found to be significantly anemic with an H&H of 6.2 and 23.5 and received PRBC blood transfusion x 2. An EGD was performed on 04/12/2020 to assess for anemia related to chronic blood loss as there was a concern for a GI bleed. Per the EGD operative note, the EGD showed a polypoidal ulcerated mass in the distal esophagus extendingf from 32 to 36 cms with partial obstruction. In the stomach, a large fraible polypoidal, fungating, ulcerated, circumferential mass involving the cardia and fundus. Multiple additional polypoidal masses involving the body along the lesser curve extending close to the antrum. Another mass involving the gastric body along the great curve - multiple biopsies were obtained. Mild gastric erythema. Biopsies were obtained. Circumferental mass seen on retroflexed examination of the cardia. Following the EGD findings, a chest CT was performed and showed diffuse wall thickening of the proximal stomach with multiple nodular appearing masslike lesions. Some of these lesions appear to extend outside the wall of the stomach and abut the left adrenal gland and tail of the pancreas. There are enlarged perigastric, periportal and precaval lymph nodes. There are peritoneal nodules deep to the right lower abdominal wall and in the infraumbilical region suggestive of peritoneal disease. A consult was placed for Oncology and Thoracic surgery in reference to the esophageal mass. Patient seen and examined this am. Doing well and in good spirits. [facility] Patient states she has not had any nausea, vomiting, abdominal discomfort, cramping, or melena in her stools. She continues to have difficulty with swallowing solids. She states she does well with liquids and mashed up foods . She denies respiratory distress, shortness of breath, cough, fever, or chills. COVID negative. She is ambulating in her room without difficulty. Denies any other complaints. Review of Systems Review of Systems: Yes all other systems are reviewed and are negative Constitutional: Constitutional: Denies headache(s) and Reports weakness ENT: Reports Normal hearing present, Denies dizziness and Denies headache(s) Neurologic: Reports system reviewed and no additional complaints, except as documented, Reports Normal hearing present, Denies dizziness, Denies headache(s) and Reports weakness PMFSH Past Medical History Medical History No known health problems Functional capacity: independent ambulation Social History Social History Household Members: Spouse Housing: House Alcohol intake: never Smoking Status: Never smoker service: No Current occupational status: unemployed Meds Allergies Allergy/AdvReac Type Severity Reaction Status Date / Time No Known Allergies Allergy Mild NONE Unverified 02/19/20 17:08 Latex Allergy Unknown Uncoded 11/13/18 00:00 latex Allergy Unknown Uncoded 11/15/15 00:00 Physical Exam Vital Signs: Vital Signs: Last Vital Signs Temp 97.2 F 04/13/20 07:39 Pulse 89 04/13/20 07:39 Resp 18 04/13/20 07:39 BP 119/65 04/13/20 07:39 Pulse Ox 99 04/13/20 07:39 Body Mass Index 23.8 Const: General: cooperative, healthy appearing, comfortable and no acute distress Nutritional Appearance: well nourished Orientation/consciousness: oriented to person, oriented to place, oriented to time and patient oriented x3 Limitations: no limitations HENMT: Head: Yes normal to inspection, Yes normocephalic and Yes atraumatic Mouth: Normal oral and palatal mucosa present Eyes: Visual Butt: normal visual butt by confrontation Alignment and Position: alignment normal Periorbital: periorbital findings normal Conjunctivae: conjunctivae normal Sclerae: sclerae normal Pupils: Equal, r ound and reactive pupils present and Pupil accommodation reflex normal EOM: EOMs intact bilaterally Neck: Neck: Yes normal visual inspection, Yes full ROM, Yes no lymphadenopathy, Yes trachea midline, Yes supple, No lymphadenopathy, No tender and No tracheal deviation Lymphatic: no lymphadenopathy noted Chest: Chest palpation & inspection: normal inspection of the chest and no crepitus Resp: Effort & Inspection: normal respiratory effort, able to speak in complete sentences, normal respiratory pattern, no audible wheezes, no cough, no pursed lip breathing, no respiratory distress, no stridor, not tachypneic, no tracheal deviation and other (Patient speaking in full sentences on room air. Chest tube to *waterseal/mendoza) Auscultation: clear to auscultation bilaterally Cardio: Jugular venous distension: no JVD Palpation: normal PMI Rate: regular rate Rhythm: regular rhythm Heart sounds: S1 normal heart sound present, S2 normal heart sound present, no click, no gallops, no murmurs and no rubs GI: Inspection: Yes normal to inspection Auscultation: normal bowel sounds : General: Yes no CVA tenderness Back/Spine/Pelvis: Back: no CVA tenderness Thoracic/Lumbar Spine: thoracic and lumbar spine normal to inspection Skin: General skin exam: no rashes or lesions noted and dry skin Lesions: no lesions Rashes: no rashes Neuro: General: oriented to person, oriented to place, oriented to time, patient oriented x3 and gait normal Cranial nerves: Yes Equal, round and reactive pupils present and Yes Normal hearing present Extrem: General: Yes normal to inspection, Yes full ROM, Yes capillary refill normal, Yes no clubbing, cyanosis or edema, Yes no pedal edema and Yes normal gait Psych: Appearance: grossly normal and well kempt Mental Status: mental status grossly normal Speech and movement: Normal speech and movement present and Clear speech present Affect: normal affect Attitude: cooperative Thought process: Normal thought process present Thought content: Normal thought content present Results Labs Result diagrams: 04/13/20 06:01 04/13/20 06:01 Labs: Abnormal lab results 04/09/20 04/13/20 04/13/20 Range/Units 18:26 06:01 06:01 Hgb 9.2 L (12.0-16.0) g/dl Hct 31.7 L (37-47) % MCV 67.3 L (80-98) fL MCH 19.5 L (27.0-33.0) pg MCHC 29.0 L (31.0-35.0) g/dl RDW 30.5 H (11.0-16.0) % MPV 9.0 L (9.4-12.3) fL Chloride 109 H (96-108) mmol/L Anion Gap 11 L (12-20) Calcium 8.1 L (8.4-10.2) mg/dL Crossmatch See Detail Short CBC 04/13/20 Range/Units 06:01 WBC 5.9 (4.8-10.8) X10*3/uL Hgb 9.2 L (12.0-16.0) g/dl Hct 31.7 L (37-47) % Plt Count 391 (160-400) X10*3/uL BMP 04/13/20 06:01 Sodium 140 Potassium 4.0 Chloride 109 H Carbon Dioxide 24 BUN 10 Creatinine 0.63 Calcium 8.1 L Urine 04/09/20 Range/Units 17:47 Urine Color YELLOW Urine Appearance CLEAR Urine pH 7.5 (5.0-8.0) Ur Specific [place] 1.015 (1.005-1.025) Urine Protein NEG (NEG-TRACE) MG/DL Urine Glucose (UA) NEG (NEG) MG/DL All other labs normal. Imaging CT scan - chest: report reviewed (Abdomen and pelvis: Diffuse wall thickening of the proximal stomach with multiple nodular appearing masslike lesions. Some of these lesions appear to extend outside the wall of the stomach and abut the left adrenal gland and tail of the pancreas. There are enlarged perigastric, periportal and precav) Assessment and Plan (1) Esophageal mass: Status: Acute Patient is a pleasant 49 year-old female who presents to [facility] with reports of dizziness, dysphagia, and weakness that has worsened in the past two months and found to have a distal esophageal mass extending in to the stomach. * I have reviewed her EGD findings and chest/abdominal CT images * Unfortuantely, patient is not a Thoracic surgical candidate. The distal esophageal mass extends in to the stomach and outside of the wall of the stomach abutting the left adrenal gland and tail of pancreas. There is also peritoneal nodules deep within the right lower abdominal wall suggesting evidence of peritoneal disease. CT findings appear to show concern for primary gastric cancer or gastric lymphoma * Recommend consult by Oncology team to discuss treatment options * GI will need to coordinate further care with Oncology. * Biopsy results remain pending. * Patient will need a PET/CT scan to assess for any evidence of metastasis * Her barium studies have been negative thus far. Currently on clear liquid diet. ? advancing her diet to mechanical soft or whatever she can currently tolerate. * Dietary consult to assist with nutritional needs and appropriate caloric intake Case discussed with Dr. Mendoza. Thank you for this consult. Will sign-off at this time. Please do not hesitate to call with any questions or concerns (2) Iron deficiency anemia: Status: Acute
--- NOTE | 2020-04-13 09:19 | HO.POSTANES ---
Post Anesthesia Evaluation Post Anesthesia Evaluation Vital Signs: Vital Signs Temp Pulse Resp BP Pulse Ox 04/13/20 07:39 97.2 F 89 18 119/65 99 04/13/20 03:17 98.2 F 78 16 98/58 L 98 04/13/20 00:00 97.6 F 74 16 102/51 L 98 Anesthesia: Monitored Mental Status: Awake Pain Control: Satisfactory Nausea/Vomiting: None Hydration: Adequate Anesthesia-Related Issues: No Anes. Related Issues
[2020-04-13 11:11] VITALS: BP 110/71; PULSE 90; RESP 20; TEMP 36.2; O2SAT 99
--- NOTE | 2020-04-13 12:26 | PM.HEMONCPN ---
Medical Summary - Medical Summary Chief complaint: gastric tumor Review of Systems - Respiratory Reports dyspnea - Gastrointestinal Reports abdominal pain - Neurologic Reports system reviewed and no additional complaints, except as documented, Reports hearing normal, Reports weakness, Denies headache(s) [facility] Medical History: Medical History (Last Reviewed 04/13/20 @ 10:36 by Georgia Carmona NP) No known health problems Functional capacity: independent ambulation Smoking status: Never smoker Home Medications and Allergies Home Medications Medication Instructions Recorded Confirmed Type No Known Home Meds 04/09/20 04/09/20 History Allergies Allergy/AdvReac Type Severity Reaction Status Date / Time No Known Allergies Allergy Mild NONE Unverified 02/19/20 17:08 Latex Allergy Unknown Uncoded 11/13/18 00:00 latex Allergy Unknown Uncoded 11/15/15 00:00 Exam Vital signs: Vital Signs Temp 98 F 04/11/20 11:00 Pulse 84 04/11/20 11:00 Resp 18 04/11/20 11:00 BP 121/75 04/11/20 11:00 Pulse Ox 100 04/11/20 11:00 Intake & Output 04/10/20 04/11/20 04/11/20 18:59 06:59 18:59 Intake Total 210 / 690 480 / 690 Output Total 400 / 400 Balance -190 / 290 480 / 290 Urine Output (Average ml/kg/hr) 0.30 0.30 Intake: Intake, Oral Amount 210 / 690 480 / 690 Output: Output, Urine Amount 400 / 400 Other: Breakfast % Eaten 100% Lunch % Eaten 100% Number of Unmeasured Voids 2 Urine Bathroom Urine Color Yellow Weight 111 kg Body Mass Index 52.9 - Constitutional Present: no acute distress - Routine HEENT Exam Head: Present: atraumatic - Routine Neck Exam Present: full ROM - Routine Respiratory Exam Present: decreased breath sounds - Routine Cardiovascular Exam Cardiovascular: Present: RRR - Routine Abdominal Exam Present: diminished bowel sounds, nontender - Routine Exam Patient deferred: external exam - Routine Extremities Exam Present: full ROM - Routine Back/Spine/Pelvis Exam Back/Spine: Present: full ROM - Routine Neurological Exam Present: alert, oriented X3 Data - Labs CBC & Chem 7: 04/13/20 06:01 04/13/20 06:01 Labs: Laboratory Results - last 24 hr 04/09/20 04/13/20 04/13/20 18:26 06:01 06:01 WBC 5.9 RBC 4.71 Hgb 9.2 L Hct 31.7 L MCV 67.3 L MCH 19.5 L MCHC 29.0 L RDW 30.5 H Plt Count 391 MPV 9.0 L Absolute Nucleated RBC 0.000 Nucleated RBC % (auto) 0.0 Sodium 140 Potassium 4.0 Chloride 109 H Carbon Dioxide 24 Anion Gap 11 L BUN 10 Creatinine 0.63 Estim Creat Clear Calc 74.3 Estimated GFR > 60 Random Glucose 88 Calcium 8.1 L Carcinoembryonic Ag Crossmatch See Detail 04/13/20 06:01 WBC RBC Hgb Hct MCV MCH MCHC RDW Plt Count MPV Absolute Nucleated RBC Nucleated RBC % (auto) Sodium Potassium Chloride Carbon Dioxide Anion Gap BUN Creatinine Estim Creat Clear Calc Estimated GFR Random Glucose Calcium Carcinoembryonic Ag 1.50 Crossmatch Progress Note: A/P (1) Anemia Start date: 04/11/20 (The stomach is markedly abnormal and likely the source of the iron deficiency. She will need biopsy via endoscopy which is planned for today.) Status: Acute Assessment and plan: The new microcytosis is likely iron deficiency from blood loss or malabsorption. She has been transfused. Please check ferritin and reticulocytes. will follow. - Time Spent With Patient Total time spent is greater than 50% in coordination of care (as documented) at patient's floor/unit and/or counseling patient: 15 - 24 minutes
--- NOTE | 2020-04-13 13:12 | MHC.CM.PN ---
pt dcd home no sercveis indicated
--- NOTE | 2020-04-13 13:15 | PM.DS ---
DS: Providers Provider Date of admission: 04/10/20 01:14 Primary care physician: Baryr Kent MD Consults: 04/10/20 04:21 Consult to Hematology / Oncology Routine Consulting Provider: [facility] Oncology/Hematology Reason for consultation: anemia Has provider been notified: No 04/10/20 11:21 Consult to Gastroenterology Routine Consulting Provider: Nathalie Bains Reason for consultation: Evaluation for acute on chronic ROSA, difficulties swallowing. 04/12/20 15:02 Consult to Hematology / Oncology Routine Consulting Provider: Dang Yu Reason for consultation: For your kind evaluation of esophageal mass 04/12/20 15:22 Consult to Thoracic Surgery Routine Consulting Provider: Joe Mendoza Reason for consultation: evaluation of distal esophagous mass for surgery. Dr Klein request. DS: Diagnosis Discharge Diagnosis (1) Esophageal mass: Status: Acute (2) Iron deficiency anemia: Status: Acute (3) Symptomatic anemia: Status: Acute (4) Dysphagia: Status: Acute (5) Weakness generalized: Status: Acute (6) Dizziness: Status: Acute DS: Summary Hospital Course Hospital Course: admission note HPI 49 y/o female who presented from home due to dizziness. Per history provided by the patient, for the past 2 weeks has been having symptoms of dizziness and feeling more fatigue than usual. Patient denies any blood in the stool, blood in the urine, vomiting blood, vomiting, diarrhea, chest pain or SOB. Colonoscopy done by Dr Bains in 2019 showed internal hemorrhoids, polyposis. Patient has a hx of abnormal uterine bleeding which was determined to be likely secondary to adenomatous hyperplasia which failed progestational therapy, dilation and curettage. Patient had hysterectomy in 2010. On presentation to the ED patient is found to be hemodynamically stable, hgb low of 6.2, electrolytes WNL. type and screen as well as consent for blood transfusion obtained per ED. 2 units of PRBC ordered per ED. Decision for admission given. Patient seen and examined at the bedside, laying down in bed in no acute distress. ROS as above otherwise negative. Physical exam unermarkable. Hospital course The patient received 2 units of blood with good response as her hemoglobin improved back to almost 9. Repeated readings were around the same number with no other drop. Occult testing was negative. Evaluated by freight unloader for dysphagia. Endoscopy showed distal SFA chills mass extending to the upper part of the stomach. CT scan of chest, abdomen and pelvis were done showing multiple lesions within the abdomen and abdominal wall including the pancreatic tail and adrenal gland. She was evaluated by oncologist Dr. Klein. 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 Patient to follow-up as outpatient with Oncology Clinic. To be discharged on omeprazole and iron pills. Time Spent with Patient Time attestation: Total time spent providing and/or coordinating discharge services: Physical Exam Vital Signs: Vital Signs: Last Vital Signs Temp 97.1 F 04/13/20 11:11 Pulse 90 04/13/20 11:11 Resp 20 04/13/20 11:11 BP 110/71 04/13/20 11:11 Pulse Ox 99 04/13/20 11:11 Body Mass Index 23.8 Constitutional : Alert, oriented, not in distress Neck : Normal inspection, Supple, pain and difficulty with swallowing Cardiovascular : RRR, S1 S2, no lower extremity edema Respiratory : Good bilateral air entry, no crackles, wheezes or rhonchi Gastrointestinal: soft, lax, Normal bowel sounds, Non tender Skin : Warm/Dry, No rash Neurological : Alert & oriented x3, No focal deficit DS: Data Data Completed and Pending Pending studies at discharge: Pending at discharge 04/12/20 13:28 Surgical [PTH] Routine Labs on day of discharge: 04/09/20 17:28 ECG 12 lead EKG Stat EKG Documentation DIRECTED 0.9 % Sodium Chloride [Ns] 1,000 ml IVCONT 999 mls/hr 04/09/20 17:47 Basic Metabolic Panel Stat Complete Blood Count Auto Diff Stat Ferritin Stat Hold Lav - Possible Hematology Stat IRON PROFILE Stat Liver Panel Stat Magnesium Stat Prothrombin Time INR Stat UA CC w/rflx Micro + Cult Stat 04/09/20 18:02 XR chest 2V Stat 04/09/20 18:26 Red Blood Cells Stat Type and Screen Stat 04/09/20 19:02 Acetaminophen [Tylenol] 650 mg PO ONCE ONE 04/09/20 19:55 [id number] Stat 04/09/20 20:07 Add Laboratory Test Stat 04/09/20 21:54 Consult Rx Perform Med Rec 1 each MISCELLANE ONCE PRN 04/09/20 22:25 CMP [Comprehensive Met. Panel] Stat 04/09/20 22:43 Add Laboratory Test Stat 04/10/20 01:00 SARS COV2 PCR INHOUSE Stat 04/10/20 01:08 Transfer Order Routine 04/10/20 05:42 Acetaminophen [Tylenol] 650 mg PO ONCE ONE 04/10/20 06:28 Basic Metabolic Panel Routine Complete Blood Count Auto Diff Routine Ferritin Stat IRON PROFILE Stat Reticulocyte Count Stat SLIDE REVIEW Stat 04/10/20 08:00 0.9 % Sodium Chloride Flush [NS Flush] 3 ml IVFLUSH QSHIFT 04/10/20 Breakfast Regular Diet 04/10/20 11:25 Ferrous Sulfate 324 mg PO BIDWM 04/10/20 17:10 Omeprazole [PriLOSEC] 40 mg PO BID@0630,1630 04/11/20 06:26 Basic Metabolic Panel DAILY@0600 Complete Blood Count Auto Diff DAILY@0600 04/11/20 12:34 Sodium Ferric Gluconat/Sucrose [Ferrlecit] 125 mg 0.9 % Sodium Chloride [Ns] 100 ml IV ONCE 04/12/20 04:10 Basic Metabolic Panel DAILY@0600 Complete Blood Count no Diff DAILY@0600 04/12/20 04:30 Lactated Ringers [Lr] 500 ml IVCONT 999 mls/hr 04/12/20 13:14 propofoL [Diprivan] 200 mg IVPUSH .STK-MED ONE 04/12/20 13:34 propofoL [Diprivan] 200 mg IVPUSH .STK-MED ONE 04/12/20 13:47 Transfer Order Routine 04/12/20 15:02 CT abdomen w con Routine CT chest w con Routine 04/12/20 16:08 iohexoL 350 MG/ML [Omnipaque 350 MG/ML] 100 ml IV ONCE ONE 04/13/20 06:01 Basic Metabolic Panel DAILY@0600 Carcinoembryonic Antigen Routine Complete Blood Count no Diff DAILY@0600 Laboratory Last Values WBC 5.9 X10*3/uL (4.8-10.8) 04/13/20 06:01 RBC 4.71 X10*6/uL (4.20-5.50) 04/13/20 06:01 Hgb 9.2 g/dl (12.0-16.0) L 04/13/20 06:01 Hct 31.7 % (37-47) L 04/13/20 06:01 MCV 67.3 fL (80-98) L 04/13/20 06:01 MCH 19.5 pg (27.0-33.0) L 04/13/20 06:01 MCHC 29.0 g/dl (31.0-35.0) L 04/13/20 06:01 RDW 30.5 % (11.0-16.0) H 04/13/20 06:01 Plt Count 391 X10*3/uL (160-400) 04/13/20 06:01 MPV 9.0 fL (9.4-12.3) L 04/13/20 06:01 Immature Gran % (Auto) 0.2 % (0.0-0.4) 04/11/20 06:26 Neut % (Auto) 58.4 % (45-73) 04/11/20 06:26 Lymph % (Auto) 24.4 % (20-40) 04/11/20 06:26 [place] % (Auto) 8.8 % (2-11) 04/11/20 06:26 Eos % (Auto) 7.4 % (0-4) H 04/11/20 06:26 Baso % (Auto) 0.8 % (0-2) 04/11/20 06:26 Lymph # (Auto) 1.2 X10*3/uL (1.2-4.9) 04/11/20 06:26 [place] # (Auto) 0.4 X10*3/uL (0.1-1.2) 04/11/20 06:26 Eos # (Auto) 0.4 X10*3/uL (0.0-0.4) 04/11/20 06:26 Baso # (Auto) 0.0 X10*3/uL (0.0-0.2) 04/11/20 06:26 Abs Immat Gran (auto) 0.01 X10*3/uL (0.00-0.03) 04/11/20 06:26 Absolute Neuts (auto) 2.9 X10*3/uL (2.0-8.3) 04/11/20 06:26 Absolute Nucleated RBC 0.000 X10*3/uL (0.0-0.012) 04/13/20 06:01 Nucleated RBC % (auto) 0.0 /100WBC (0.0-0.2) 04/13/20 06:01 Smear Tech's Comments VERIFIED 04/10/20 06:28 Smear Path Review SEE NOTE 04/09/20 17:47 Absolute Retic 0.040 X10*6/uL (0.026-0.095) 04/10/20 06:28 Percent Retic 0.9 % (0.5-1.8) 04/10/20 06:28 Immature Retic Fraction 37.0 % (3.0-15.9) H 04/10/20 06:28 Retic Hgb Equivalent 15.4 pg (30.0-35.0) L 04/10/20 06:28 Hold Purple Top SEE NOTE 04/09/20 17:47 PT 13.2 SEC (10.8-13.0) H 04/09/20 17:47 INR 1.1 (0.9-1.1) 04/09/20 17:47 Sodium 140 mmol/L (135-145) 04/13/20 06:01 Potassium 4.0 mmol/l (3.3-5.1) 04/13/20 06:01 Chloride 109 mmol/L (96-108) H 04/13/20 06:01 Carbon Dioxide 24 mmol/L (22-29) 04/13/20 06:01 Anion Gap 11 (12-20) L 04/13/20 06:01 BUN 10 mg/dL (9-16) 04/13/20 06:01 Creatinine 0.63 mg/dL (0.5-1.4) 04/13/20 06:01 Estim Creat Clear Calc 74.3 04/13/20 06:01 Estimated GFR > 60 04/13/20 06:01 Random Glucose 88 mg/dL (60-115) 04/13/20 06:01 Calcium 8.1 mg/dL (8.4-10.2) L 04/13/20 06:01 Magnesium 2.2 mg/dL (1.6-2.6) 04/09/20 17:47 Iron 23 mcg/dL (30-160) L 04/10/20 06:28 TIBC 325 mcg/dL (228-428) 04/10/20 06:28 % Saturation 7 % (15-50) L 04/10/20 06:28 Unsat Iron Binding 302 ug/dL 04/10/20 06:28 Ferritin < 1 ng/mL (10-250) L 04/10/20 06:28 Total Bilirubin 0.4 mg/dL (0.0-1.0) 04/10/20 01:00 Direct Bilirubin 0.2 mg/dL (0.0-0.5) 04/09/20 17:47 AST 16 U/L (5-31) 04/10/20 01:00 ALT 18 U/L (0-31) 04/10/20 01:00 Alkaline Phosphatase 71 U/L (39-117) 04/10/20 01:00 Total Protein 5.3 g/dL (6.5-8.0) L 04/10/20 01:00 Albumin 3.2 g/dL (3.5-5.0) L 04/10/20 01:00 Carcinoembryonic Ag 1.50 mg/mL 04/13/20 06:01 Urine Color YELLOW 04/09/20 17:47 Urine Appearance CLEAR 04/09/20 17:47 Urine pH 7.5 (5.0-8.0) 04/09/20 17:47 Ur Specific [place] 1.015 (1.005-1.025) 04/09/20 17:47 Urine Protein NEG MG/DL (NEG-TRACE) 04/09/20 17:47 Urine Glucose (UA) NEG MG/DL (NEG) 04/09/20 17:47 Urine Ketones 15 MG/DL (NEG) 04/09/20 17:47 Urine Blood NEG (NEG) 04/09/20 17:47 Urine Nitrite NEG (NEG) 04/09/20 17:47 Ur Leukocyte Esterase NEG (NEG) 04/09/20 17:47 Stool Occult Blood NEG (NEG) 04/09/20 19:55 Coronavirus (PCR) NEGATIVE (Negative) 04/10/20 01:00 Blood Type O Positive 04/09/20 18:26 Antibody Screen NEGATIVE 04/09/20 18:26 Crossmatch See Detail 04/09/20 18:26 Discharge Plan Discharge Patient Disposition: Home, Self-Care Referrals: Name,MD Barry [Primary Care Provider] - Discharge Medications: New omeprazole 40 mg capsule,delayed release(DR/EC) 40 mg PO BID Qty: 60 RF: 2 ferrous sulfate 325 mg (65 mg iron) tablet 325 mg PO BID Qty: 60 RF: 2 Discharge Orders: Discharge Order (Routine); Ordered 04/13/20 Ordered By: Kristi Barone Diet: advance to your usual diet Activity on Discharge: As tolerated Other Ambulatory Orders: Complete Blood Count no Diff (Routine) Timeframe: 1 Week Facility: [facility] - Location: [address] [place] [address]-Lab Ordered By: Kristi Barone Visit Report Forms: Patient Portal Discharge page Care Plan Goals: read below Health Concerns: read below Plan of Treatment: you were admitted to the hospital for evaluation of dizziness and low blood level. He received a unit of blood transfusion in her blood work was significant for low iron level. You were evaluated by freight unloader Dr. Bains who did endoscopy showing stomach and esophagus mass. Biopsies were done with the a early results showing Underlying cancer. Images for your chest, abdomen and pelvis showed lesions in the abdomen in the adrenal gland and pancreas. Evaluated by Dr. Klein from Oncology who will follow up with you as outpatient. To take omeprazole daily twice To take iron pills twice daily To repeat blood test in 1 week
== END 2020-04-13 16:26 | disposition home or self-care (01) | DRG 240 ==
LOC: HO.ED 04-10 01:06 → HO.IMC 04-10 02:40
PROVIDERS: Internal Medicine Gastroenterology; Physician Assistant Medical; Admitting Provider Internal Medicine; Emergency Provider Internal Medicine; PCP Internal Medicine Geriatric Medicine; Visit Provider Student in an Organized Health Care Education/Training Program
PROC: 0DB38ZX Excision of Lower Esophagus, Via Natural or Artificial Opening Endoscopic, Diagnostic (ICD-10-PCS; principal; 2020-04-12 14:10)
DX: C16.3 Malignant neoplasm of pyloric antrum (principal); C15.5 Malignant neoplasm of lower third of esophagus; D50.0 Iron deficiency anemia secondary to blood loss (chronic); Z20.828 Contact with and (suspected) exposure to other viral communicable diseases
CPT/HCPCS: 36415; 36430; 71046; 71260; 74160; 80048; 80053; 80076; 81003; 82272; 82378; 82728; 83540; 83735; 85025; 85027; 85045; 85060; 85610; 86850; 86870; 86900; 86901; 86920; 86922; 88305; 88342; 88360; 92507; 92610; 93005; 96360; 99222; 99285; 99291; 99292; J2916; P9016; Q9967; U0003

== ENCOUNTER 2020-04-20 08:56 | Outpatient (REF) | payer MEDICAID, SELFPAY ==
[2020-04-20 09:41] LABS: Hematocrit 34.3 % (37-47); Hemoglobin 10.1 g/dl (12.0-16.0); Mean Corpuscular HGB Conc 29.4 g/dl (31.0-35.0); Mean Corpuscular Hemoglobin 20.5 pg (27.0-33.0); Mean Corpuscular Volume 69.6 fL (80-98); Mean Platelet Volume 9.4 fL (9.4-12.3); Platelet Count 372 X10*3/uL (160-400); Red Blood Count 4.93 X10*6/uL (4.20-5.50); White Blood Count 4.9 X10*3/uL (4.8-10.8)
== END 2020-04-20 08:57 | disposition home or self-care (01) ==
LOC: HO.LAB 08:56
PROVIDERS: PCP Internal Medicine Geriatric Medicine; Visit Provider Student in an Organized Health Care Education/Training Program
DX: D50.9 Iron deficiency anemia, unspecified (principal)
CPT/HCPCS: 36415; 85027

== ENCOUNTER → 2020-05-17 08:57 | Outpatient (BNVA) | payer MEDICAID, SELFPAY | PROVIDERS: PCP Internal Medicine Geriatric Medicine; Referring Provider Internal Medicine Geriatric Medicine; Visit Provider Nurse Practitioner | DX: Z76.89 Persons encountering health services in other specified circumstances (principal) ==

== ENCOUNTER → 2020-05-21 15:10 | Outpatient (BNVA) | payer MEDICAID, SELFPAY | PROVIDERS: PCP Internal Medicine Geriatric Medicine; Visit Provider Internal Medicine Gastroenterology | DX: Z76.89 Persons encountering health services in other specified circumstances (principal) ==

== ENCOUNTER 2022-08-30 08:54 | Outpatient (REF) | payer MEDICAID, SELFPAY ==
--- NOTE | ~2022-08-30 | XR_ITS ---
Examination: 1. Radiographs right wrist 2. Radiographs left wrist INDICATION: Bilateral hand pain COMPARISON: Left hand x-rays 10/29/2018 TECHNIQUE: 4 views of each wrist were obtained. FINDINGS: Right wrist: Visualized portion of the distal right radius and ulna demonstrate no fracture. Carpal rows are maintained. No carpal bone fracture. No significant degenerative changes of the wrist. No focal soft tissue swelling. Visualized metacarpals are unremarkable. Left wrist: Visualized portions of distal left radius and ulna demonstrate no fracture. Carpal rows are maintained. No carpal bone fracture. No appreciable degenerative changes of the left wrist. No focal soft tissue swelling. Visualized metacarpals are unremarkable. XR/XR wrist LT min 3V IMPRESSION: Unremarkable radiographs of the bilateral wrists.
--- NOTE | ~2022-08-30 | XR_ITS ---
Examination: 1. Radiographs right wrist 2. Radiographs left wrist INDICATION: Bilateral hand pain COMPARISON: Left hand x-rays 10/29/2018 TECHNIQUE: 4 views of each wrist were obtained. FINDINGS: Right wrist: Visualized portion of the distal right radius and ulna demonstrate no fracture. Carpal rows are maintained. No carpal bone fracture. No significant degenerative changes of the wrist. No focal soft tissue swelling. Visualized metacarpals are unremarkable. Left wrist: Visualized portions of distal left radius and ulna demonstrate no fracture. Carpal rows are maintained. No carpal bone fracture. No appreciable degenerative changes of the left wrist. No focal soft tissue swelling. Visualized metacarpals are unremarkable. XR/XR wrist RT min 3V IMPRESSION: Unremarkable radiographs of the bilateral wrists.
[2022-08-30 09:23] LABS: Basophils Absolute Auto 0.1 X10*3/uL (0.0-0.2); Basophils Percent Auto 1.4 % (0-2); Eosinophils Absolute Auto 1.1 X10*3/uL (0.0-0.4); Eosinophils Percent Auto 21.8 % (0-4); Hematocrit 38.4 % (37.0-47.0); Hemoglobin 12.7 g/dl (12.0-16.0); Imm Gran Abs Auto 0.01 X10*3/uL (0.00-0.03); Imm Gran Pct Auto 0.2 % (0.0-0.4); Lymphocytes Absolute Auto 1.4 X10*3/uL (1.2-4.9); Lymphocytes Percent Auto 27.9 % (20-40); MANUAL DIFF FLAG SCAN; Mean Corpuscular HGB Conc 33.1 g/dl (31.0-35.0); Mean Corpuscular Hemoglobin 28.4 pg (27.0-33.0); Mean Corpuscular Volume 85.9 fL (80.0-98.0); Mean Platelet Volume 10.1 fL (9.4-12.3); Monocytes Absolute Auto 0.4 X10*3/uL (0.1-1.2); Monocytes Percent Auto 7.4 % (2-11); Neutrophils Absolute Auto 2.1 x10*3/uL (2.0-8.3); Neutrophils Percent Auto 41.3 % (45-73); Platelet Count 193 X10*3/uL (160-400); Red Blood Count 4.47 X10*6/uL (4.20-5.50); Red Cell Distribution Width 12.9 % (11.0-16.0); SCAN SMEAR FLAG 1
[2022-08-30 09:28] LABS: Estimated Average Glucose 105 mg/dL; Hemoglobin A1c % 5.3 %
[2022-08-30 09:45] LABS: SLIDE REVIEW VERIFIED
[2022-08-30 09:50] LABS: Alanine Aminotransferase 21 U/L (0-31); Albumin Level 4.1 g/dL (3.5-5.0); Alkaline Phosphatase 98 U/L (39-117); Anion Gap 13 (12-20); Aspartate Amino Transferase 18 U/L (5-31); Bilirubin Total 0.4 mg/dL (0.0-1.0); Blood Urea Nitrogen 16 mg/dL (9-16); C Reactive Protein < 0.10 mg/dL (< or = 0.50); Calcium 8.9 mg/dL (8.4-10.2); Carbon Dioxide 24 mmol/L (22-29); Chloride 110 mmol/L (96-108); Estimated Glomerular Filt Rate > 60; Glucose Random 96 mg/dL (60-115); Potassium 4.1 mmol/L (3.3-5.1); Sodium 143 mmol/L (135-145); Total Protein 6.3 g/dL (6.5-8.0)
[2022-08-30 10:18] LABS: Folate 12.6 ng/mL (> or = 4.0); TSH reflex Free T4 1.27 uIU/mL (0.32-4.0); Vitamin B12 257 pg/mL (200-900)
[2022-08-30 10:27] LABS: Erythrocyte Sedimentation Rate 4 MM/HR (0-20)
== END 2022-08-30 08:55 | disposition home or self-care (01) ==
LOC: HO.LAB 08:54
PROVIDERS: Visit Provider Family Medicine
DX: M79.641 Pain in right hand (principal); M79.642 Pain in left hand
CPT/HCPCS: 36415; 73110; 80053; 82607; 82746; 83036; 84443; 85025; 85652; 86140

== ENCOUNTER 2022-09-20 09:21 | Outpatient (REF) | payer MEDICAID, SELFPAY ==
--- NOTE | ~2022-09-20 | XR_ITS ---
EXAMINATION: XR chest 2V CLINICAL INFORMATION: Reason for Exam ACUTE COUGH COMPARISON: Chest radiograph 04/09/2022 TECHNIQUE: 2 views of the chest FINDINGS: Clear lungs. No pneumothorax or pleural effusion. Normal cardiomediastinal silhouette. Right CVC tip projects over the cavoatrial junction. XR/XR chest 2V Impression: Right CVC tip projects over the cavoatrial junction.
== END 2022-09-20 09:22 | disposition home or self-care (01) ==
LOC: HO.XRAY 09:21
PROVIDERS: PCP Family Medicine; Visit Provider Nurse Practitioner Primary Care
DX: R05.1 Acute cough (principal)
CPT/HCPCS: 71046

== ENCOUNTER 2022-11-01 08:49 | Outpatient (REF) | payer MEDICAID, SELFPAY ==
--- NOTE | 2022-11-01 08:30 | EMG_ITS ---
Please see scanned EMG / Nerve Conduction Report. MTDD
== END 2022-11-01 08:50 | disposition home or self-care (01) ==
LOC: HO.NEURO 08:49
PROVIDERS: PCP Family Medicine; Visit Provider Family Medicine
DX: M79.641 Pain in right hand (principal); M79.642 Pain in left hand
CPT/HCPCS: 95885; 95913

== ENCOUNTER 2022-11-03 07:42 | Outpatient (REF) | payer MEDICAID, SELFPAY ==
--- NOTE | ~2022-11-03 | MM_ITS ---
EXAMINATION: MM SCREENING DIGITAL BREAST TOMOSYNTHESIS, BILATERAL CLINICAL INFORMATION: Screening. Asymptomatic. Prior history reduction mammoplasty. The lifetime risk of breast cancer based on the Tyrer-Cuzick Model is 6%. COMPARISON: Mammography: 11/11/2018, 08/21/2017, 08/04/2016 TECHNIQUE: Digital breast tomosynthesis is performed in both the craniocaudal and mediolateral oblique views along with computer-aided detection (CAD). Synthesized 2D images are generated from the tomosynthesis. FINDINGS: There are scattered areas of fibroglandular density (ACR BI-RADS breast composition Category b). There are no significant masses, abnormal calcifications, or other abnormalities. There is no developing density or interval architectural abnormality. Benign heavily calcified nodules right central mid 9:00 and right posterior breast are again demonstrated. There is portion of a port overlying the posterior right axilla on MLO view. The axilla are otherwise unremarkable. No significant changes from prior exams. MM/MM tomosynthesis screening BI IMPRESSION: No mammographic evidence of malignancy. ASSESSMENT: BI-RADS 2: Benign RECOMMENDATION: Routine annual mammography screening. This patient's information was entered into a reminder system with a target due date for their next mammogram.
== END 2022-11-03 07:43 | disposition home or self-care (01) ==
LOC: HO.MAMMO 07:42
PROVIDERS: PCP Family Medicine; Visit Provider Family Medicine
DX: Z12.31 Encounter for screening mammogram for malignant neoplasm of breast (principal)
CPT/HCPCS: 77063; 77067

== ENCOUNTER 2022-12-07 08:21 | Outpatient (REF) | payer MEDICAID, SELFPAY | END 2022-12-07 08:22 | disposition home or self-care (01) | LOC: HO.RESP 08:21 | PROVIDERS: PCP Family Medicine; Visit Provider Family Medicine | DX: R05.3 Chronic cough (principal) | CPT/HCPCS: 94060; 94727; 94729 ==

== ENCOUNTER 2023-01-24 07:56 | Outpatient (REF) | payer MEDICAID, SELFPAY ==
[2023-01-24 10:20] LABS: B Type Natriuretic Peptide 19 pg/mL (<100)
== END 2023-01-24 07:57 | disposition home or self-care (01) ==
LOC: HO.LAB 07:56
PROVIDERS: Absent Provider Internal Medicine; PCP Family Medicine; Visit Provider Orthopaedic Surgery
DX: R05.3 Chronic cough (principal); G56.03 Carpal tunnel syndrome, bilateral upper limbs
CPT/HCPCS: 36415; 83880; 99202

== ENCOUNTER 2023-01-24 07:56 | Outpatient (AMB) | payer MEDICAID, SELFPAY ==
--- NOTE | 2023-01-24 08:07 | MHC.OFFVIS ---
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 States symptoms has been present for the last 4-5 yrs and has worsen. Patient has tried and failed bracing and injection in the past with no improvement. EMG done. Hx of stomach and esophagus cancer. 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 She reports bilateral hand numbness for ~5 years now, which has worsened over time. She has numbness in the median nerve distribution bilaterally. Her symptoms are constant, worse with activity and at night. 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 She has tried bracing and injections in the past without relief She has a hx of stomach & esophagus cancer, but is currently not on any immunotherapy medication [facility] Medical History (Updated 01/24/23 @ 08:35 by Jacky Tovar) Allergic rhinitis Anemia Carpal tunnel syndrome Dysphagia No known health problems Odynophagia Surgical History (Updated 05/17/20 @ 09:01 by Letty Carreon [facility]) H/O: hysterectomy Hx of bilateral breast reduction surgery Hx of section Hx of colonoscopy Hx of endoscopy Family History (Updated 05/21/20 @ 15:18 by Lexii Martínez [facility]) Family/Other Family history normal Mother No problems noted. Social History Household Members: Spouse Housing: House Do you presently have visiting nurse or other home services: No Alcohol intake: current Alcohol intake frequency: does not drink service: No Current occupational status: unemployed Review of Systems Const All systems reviewed & are unremarkable except as noted in HPI and below Physical Exam Vital Signs: BMI result Body Mass Index 22.7 Const General: cooperative, healthy appearing and no acute distress Orientation/consciousness: patient oriented x3 HEENT Head: Yes normocephalic and Yes atraumatic Eyes EOM: EOMs intact bilaterally Resp Effort & Inspection: normal respiratory effort and able to speak in complete sentences Cardio Jugular venous distension: no JVD Skin General skin exam: turgor normal Rashes: no rashes Neuro General: patient oriented x3 Extrem Other: Evaluation of Bilateral Upper Extremity: The patient is alert, oriented, and in no acute distress Neuro: Decreased subjective sensation in the median nerve distribution of the right hand. Normal sensation to the ulnar nerve distribution No thenar or intrinsic wasting Good APB muscle belly firing and good finger cross Vascular: Cap refill brisk ROM: She can make a fist and extend all her digits No locking or catching Skin: No lacerations or abrasions. General: No Ecchymosis. No Erythema or evidence of infection. Nerve Conduction Study: Impression: Moderate-severe bilateral carpal tunnel syndrome Dr. Ahumada 11/01/22 Psych Appearance: grossly normal Affect: normal affect Attitude: cooperative Assessment & Plan Assessment & Plan (1) Carpal tunnel syndrome of left wrist: Code(s): G56.02 - Carpal tunnel syndrome, left upper limb (2) Carpal tunnel syndrome of right wrist: Code(s): G56.01 - Carpal tunnel syndrome, right upper limb Plan Assessment & Plan: 1. Left Carpal tunnel syndrome, moderate-severe Symptoms intermittent, but daily, worse with activity & at night This is her most symptomatic complaint 2. Right Carpal tunnel syndrome, moderate-severe Symptoms intermittent, but daily, worse with activity & at night I educated her about this condition I discussed operative and non-operative treatment options The patient would like to proceed with surgery, beginning with the left side The risks and benefits of operative treatment were discussed with the patient and the patient wishes to proceed with surgery. These risks include, but are not limited to risk of damage to blood vessels, nerves, tendons, infection, recurrence, incomplete relief of preoperative symptoms, persistent pain, possible need for further surgery and the risks associated with regional blocks and anesthesia. The plan is to take the patient to the operating room sometime in the next few weeks for the following procedures: 1. Left Carpal tunnel release, under local All of the preoperative paperwork including the consent was filled out today. All the patient's questions were answered. The patient understands that they will be contacted by our associate relations specialist soon to schedule this procedure. She says she is travelling near the end of February for a few days and would like surgery after she returns. She denies Diabetes, blood thinners, asthma, heart, lung, kidney issues She has a hx of stomach & esophagus cancer, but is currently not on any immunotherapy medication Scribed for Riana Andino MD by Jacky Tovar, medical equipment technician, on 01/24/23 at 8:30 AM, EST. Coding Level of Care Code New Pt Level 4 (35655) Diagnoses Carpal tunnel syndrome of left wrist G56.02 Carpal tunnel syndrome of right wrist G56.01
[2023-01-24 08:15] VITALS: BMI 22.7
== END 2023-01-24 08:42 | disposition home or self-care (01) ==
PROVIDERS: PCP Family Medicine; Visit Provider Orthopaedic Surgery
DX: G56.02 Carpal tunnel syndrome, left upper limb (principal); G56.01 Carpal tunnel syndrome, right upper limb
CPT/HCPCS: 99204

== ENCOUNTER 2023-01-26 12:52 | Outpatient (REF) | payer MEDICAID, SELFPAY ==
[2023-01-26 13:58] LABS: Basophils Absolute Auto 0.1 X10*3/uL (0.0-0.2); Basophils Percent Auto 0.9 % (0-2); Eosinophils Absolute Auto 1.8 X10*3/uL (0.0-0.4); Eosinophils Percent Auto 26.4 % (0-4); Hematocrit 38.6 % (37.0-47.0); Hemoglobin 12.9 g/dl (12.0-16.0); Imm Gran Abs Auto 0.02 X10*3/uL (0.00-0.03); Imm Gran Pct Auto 0.3 % (0.0-0.4); Lymphocytes Absolute Auto 1.7 X10*3/uL (1.2-4.9); Lymphocytes Percent Auto 23.8 % (20-40); MANUAL DIFF FLAG SCAN; Mean Corpuscular HGB Conc 33.4 g/dl (31.0-35.0); Mean Corpuscular Hemoglobin 28.5 pg (27.0-33.0); Mean Corpuscular Volume 85.2 fL (80.0-98.0); Mean Platelet Volume 10.4 fL (9.4-12.3); Monocytes Absolute Auto 0.4 X10*3/uL (0.1-1.2); Monocytes Percent Auto 6.3 % (2-11); Neutrophils Absolute Auto 2.9 x10*3/uL (2.0-8.3); Neutrophils Percent Auto 42.3 % (45-73); Platelet Count 236 X10*3/uL (160-400); Red Blood Count 4.53 X10*6/uL (4.20-5.50); Red Cell Distribution Width 14.3 % (11.0-16.0); SCAN SMEAR FLAG 1; White Blood Count 6.9 X10*3/uL (4.8-10.8)
[2023-01-26 14:25] LABS: SLIDE REVIEW VERIFIED
== END 2023-01-26 12:53 | disposition home or self-care (01) ==
LOC: HO.LAB 12:52
PROVIDERS: PCP Family Medicine; Visit Provider Internal Medicine Pulmonary Disease
DX: R05.3 Chronic cough (principal); Z91.09 Other allergy status, other than to drugs and biological substances
CPT/HCPCS: 36415; 82785; 85025; 86003; 99202

== ENCOUNTER 2023-01-26 12:52 | Outpatient (AMB) | payer MEDICAID, SELFPAY ==
[2023-01-26 12:55] VITALS: BP 110/67; PULSE 89; O2SAT 96; BMI 23.2
--- NOTE | 2023-01-26 12:55 | A.OFFVIS_ITS ---
Intake Vital Signs 01/26/23 12:55 Height 5 ft 2 in Weight 126 lb 12.253 oz BMI 23.2 BP 110/67 Blood Pressure Location Lt brachial Position Sitting Pulse 89 Pulse Source Pulse Oximeter Pulse Oximetry (%) 96 Oxygen Delivery Method Room Air Intake Visit Reasons: chronic cough Allergies Latex Allergy (Unknown, Uncoded 01/24/23 08:17) Rash HPI chronic cough HPI Details 52-year-old lady, nonsmoker, with underlying history of gastric adeocarcinoma in 2019, now status post chemo/immunotherapy ended in May of 2022 after which patient developed chronic nonproductive cough that is worse when laying down. She has been tried on albuterol MDI, albuterol nebs, Singulair, and b.i.d. PPI with suboptimal control of her symptoms. She continues to follow-up with Gastroenterology and is scheduled for endoscopy. She denies family history of lung disease or personal history of lung disease. She denies exposure to industrial dusts. Patient states that she has CT chest beats scheduled by her primary care provider office within the next week. Her pulmonary function test is essentially normal. [facility] Medical History (Updated 01/26/23 @ 13:32 by Jerome De La Rosa MD) Allergic rhinitis Anemia Carpal tunnel syndrome Dysphagia No known health problems Odynophagia Surgical History (Updated 05/17/20 @ 09:01 by Letty Carreon [facility]) H/O: hysterectomy Hx of bilateral breast reduction surgery Hx of section Hx of colonoscopy Hx of endoscopy Family History (Updated 05/21/20 @ 15:18 by Lexii Martínez [facility]) Family/Other Family history normal Mother No problems noted. Social History (Updated 01/26/23 @ 13:01 by Bonnie Serna [facility]) Household Members: Spouse Housing: House Do you presently have visiting nurse or other home services: No Alcohol intake: current Alcohol intake frequency: does not drink Patient Tobacco Use Status: Never used Tobacco service: No Current occupational status: unemployed Review of Systems Const Denies daytime sleepiness, Denies excessive sweating, Denies fatigue, Denies fever(s), Denies lethargy, Denies malaise, Denies night sweats, Denies snoring and Denies weight loss Eyes Denies blurry vision and Denies itchy eyes ENT Denies nasal congestion, Denies post nasal drip, Denies sinus pain, Denies sinus pressure and Denies other ( Thrush) Card Denies chest pain, Denies pedal edema, Denies dyspnea, Denies orthopnea and Denies paroxysmal nocturnal dyspnea Resp Reports cough, Denies hemoptysis, Denies excessive phlegm production, Denies dyspnea, Denies snoring and Denies wheezing GI Denies abdominal pain and Denies heartburn Musc Denies myalgias, Denies arthralgias and Denies joint swelling Skin/Breast Denies rash Neuro Denies memory loss and Denies seizure-like activity Psych Denies abnormal sleep pattern, Denies anxiety and Denies memory loss Endo Denies excessive sweating, Denies fatigue and Denies heat intolerance Aryan/Lymph Denies easy bruising Aller/Immun Denies itchy eyes, Denies seasonal rhinorrhea and Denies wheezing Physical Exam Vital Signs: Last Vital Signs Pulse 89 01/26/23 12:55 BP 110/67 01/26/23 12:55 Pulse Ox 96 01/26/23 12:55 Oxygen Delivery Method Room Air 01/26/23 12:55 BMI result Body Mass Index 23.2 Const General: no acute distress and alert Nutritional Appearance: not obese Orientation/consciousness: Other orientation findings ( oriented) HEENT Head: Yes atraumatic Eyes General: appearance normal, both eyes and all related structures Sclerae: sclerae normal EOM: EOMs intact bilaterally Neck Neck: Yes supple Lymphatic: no lymphadenopathy noted Resp Effort & Inspection: normal respiratory effort and no use of accessory muscles Auscultation: clear to auscultation bilaterally Cardio Rate: regular rate Rhythm: regular rhythm Heart sounds: no gallops, no murmurs and no rubs Skin General skin exam: other ( warm) Extrem General: No clubbing, No cyanosis and No edema Assessment & Plan Assessment & Plan (1) Chronic cough: Code(s): R05.3 - Chronic cough Plan: Unclear etiology, but may have underlying reactive airway disease and acid reflux in to. Patient is on b.i.d. PPI and is scheduled for endoscopy. Will start on empiric Advair. Patient has CT chest pending within next week from her primary care physician office. (2) Environmental allergies: Code(s): Z91.09 - Other allergy status, other than to drugs and biological substances Plan: Patient complains of multiple environmental allergies. Will obtain IgE level, CBC with differential, and RAST panel for further evaluation. Orders: Orders Rast Allergen Today Z91.09 - Other allergy status, other than to drugs and biological substances Complete Blood Count Auto Diff Today Z91.09 - Other allergy status, other than to drugs and biological substances Medications: New fluticasone propion-salmeterol 115-21 mcg/actuation (Advair HFA) 2 puffs inhalation Q12H 12 grams 3RF 30 days Coding Level of Care Code New Pt Level 4 (72446) Diagnoses Chronic cough R05.3 Environmental allergies Z91.09
== END 2023-01-26 13:47 | disposition home or self-care (01) ==
PROVIDERS: PCP Family Medicine; Visit Provider Internal Medicine Pulmonary Disease
DX: R05.3 Chronic cough (principal); Z91.09 Other allergy status, other than to drugs and biological substances
CPT/HCPCS: 99204

== ENCOUNTER 2023-02-06 14:04 | Outpatient (REF) | payer MEDICAID, SELFPAY ==
--- NOTE | ~2023-02-06 | CT_ITS ---
EXAMINATION: CT CHEST WITH CONTRAST CLINICAL INFORMATION: Chronic cough. COMPARISON: 07/15/2020 and 04/12/2020 TECHNIQUE: Multidetector volumetric CT imaging of the chest was obtained after the administration of 65 mL of Omnipaque 350 intravenous contrast without immediate adverse reactions. Axial MIP volume rendering provided. Sagittal and coronal reformatted images were obtained. This CT examination was performed using dose optimization techniques as appropriate, variously including the following: *Automated exposure control *Adjustment of mA and/or kV according to patient size (this includes techniques or standardized protocols for targeted exams where dose is matched to indication/reason for exam; i.e. extremities or head) *Use of iterative reconstruction technique DLP: 193 mGy-cm FINDINGS: LUNGS: New or more conspicuous 4 mm nodule right lower lobe on image 155. No focal consolidation. Mild dependent changes. Central airways are patent. MEDIASTINUM: Right chest wall Port-A-Cath with tip at the cavoatrial junction. Imaged thyroid gland is unremarkable. No bulky axillary, hilar or mediastinal lymphadenopathy. Great vessels are of normal caliber. Heart size is normal. No pericardial effusion. PLEURA: No pleural effusion. UPPER ABDOMEN: Small hiatal hernia. No adrenal mass. Hepatic steatosis. Possible splenomegaly. OSSEOUS STRUCTURES: No destructive bone lesions. CT/CT chest w IV con IMPRESSION: New or more conspicuous 4 mm right lower lobe pulmonary nodule. Follow-up chest CT in 12 months should be considered.
[2023-02-06] MEDS: iohexoL 350 MG/ML 100 ML INFUS..BTL IV (14:33)
[2023-02-07 07:30] LABS: Creatinine POC 0.8 mg/dL (0.5-1.4); GFR POC > 60
== END 2023-02-06 14:05 | disposition home or self-care (01) ==
LOC: HO.CT 14:04
PROVIDERS: Visit Provider Internal Medicine
DX: R05.3 Chronic cough (principal); C16.9 Malignant neoplasm of stomach, unspecified
CPT/HCPCS: 71260; 82565; Q9967

== ENCOUNTER → 2023-02-22 09:25 | Outpatient (BNV) | payer MEDICAID, SELFPAY | PROVIDERS: PCP Family Medicine; Visit Provider Orthopaedic Surgery | DX: G56.02 Carpal tunnel syndrome, left upper limb (principal) | CPT/HCPCS: 64721 ==

== ENCOUNTER → 2023-02-22 09:25 | Day surgery (SDC) | payer MEDICAID, SELFPAY ==
[2023-02-22 10:11] VITALS: BMI 26.4
--- NOTE | 2023-02-22 11:28 | MHC.SHP ---
Pre-Procedural Eval Section A Date of Service: 02/22/23 The patient is an INPATIENT: No Changes since office visit: No Cold of Flu in the past 2 weeks, No New Medical Problems, No Changes in Medication and No Patient answered all questions The History & Physical has been completed within 30 days and I have reviewed it.: Yes Section B Chief Complaint: Carpal tunnel syndrome, left upper limb Allergies: Allergies Allergy/AdvReac Type Severity Reaction Status Date / Time Latex Allergy Unknown Rash Uncoded 01/24/23 08:17 Plan I have reviewed the history and physical and performed a pertinent physical examination on my patient. No changes have occurred unless specified. Time Spent With Patient Time: Total time managing care of this patient today ____ minutes.
--- NOTE | 2023-02-22 11:28 | W.PM.OPN ---
Operative Note Operative Note Date of Service: 02/22/23 Narrative: Preop diagnosis: 1. Left Carpal tunnel syndrome Postop diagnosis: same Procedure: 1. left Carpal tunnel release Surgeon: Riana Andino MD Anesthesia: local block using 1% lidocaine with epinephrine Findings: Thickened transverse carpal ligament. EBL: Less than 5 mL Specimens: None Complications: None Disposition: Brought to recovery room in stable condition Plan: Follow-up for 10-14 days for wound check and suture removal Indications: The patient is 52 years old, with left carpal tunnel syndrome that has been unresponsive to nonoperative management. The risks and benefits of operative treatment including but not limited to risk of damage to blood vessels, nerves, tendons, infection, persistent pain, persistent symptoms, or possible need for additional surgery were discussed with the patient and the patient wishes to proceed with surgery. Procedure: Once consent was obtained a local block was performed using a combination of 1% lidocaine with epinephrine. The patient was then brought back to the operating suite and placed on the operative table in supine position. The left upper extremity was prepped and draped in a standard surgical fashion. Once assured that we had a good block, a 2.0 cm longitudinal incision was made centered over the carpal tunnel. The incision was made through the skin to the subcutaneous tissues using a #15 blade. Dissection was made down to the level of the transverse carpal ligament with care being taken to protect the palmar cutaneous nerve. Once the transverse carpal ligament was clearly visualized, a longitudinal incision was made in the transverse carpal ligament 1st using a #15 blade, then using tenotomy scissors under direct visualization. Care was taken to look for and protect the motor branch of the median nerve when seen in this area. Once satisfied with our carpal tunnel release the wound was copiously irrigated with normal saline and hemostasis was obtained with a brief period of local pressure. The skin edges were reapproximated with some 5.0 nylon suture material and a sterile dressing was applied. The patient appears to have tolerated the procedure well and with no complications. All digits were well vascularized at the conclusion of the case.
== END | disposition home or self-care (01) ==
PROVIDERS: PCP Family Medicine; Visit Provider Orthopaedic Surgery
PROC: (CPT 64721; principal; 2023-02-22 10:50)
DX: G56.02 Carpal tunnel syndrome, left upper limb (principal); R20.0 Anesthesia of skin; R20.2 Paresthesia of skin; D64.9 Anemia, unspecified; R13.10 Dysphagia, unspecified; J30.9 Allergic rhinitis, unspecified; Z85.028 Personal history of other malignant neoplasm of stomach; Z85.01 Personal history of malignant neoplasm of esophagus; Z91.040 Latex allergy status; Z98.890 Other specified postprocedural states
CPT/HCPCS: 64721; J0171

== ENCOUNTER 2023-02-28 09:11 | Outpatient (AMB) | payer MEDICAID, SELFPAY ==
[2023-02-28 09:30] VITALS: BP 98/62; PULSE 77; O2SAT 97; BMI 27.4
--- NOTE | 2023-02-28 09:30 | A.OFFVIS_ITS ---
Intake Vital Signs 02/28/23 09:30 Height 4 ft 9 in Weight 126 lb 12.253 oz BMI 27.4 BP 98/62 Blood Pressure Location Rt brachial Position Sitting Pulse 77 Pulse Source Doppler Pulse Oximetry (%) 97 Oxygen Delivery Method Room Air Intake Visit Reasons: chronic cough Allergies Latex Allergy (Unknown, Uncoded 01/24/23 08:17) Rash HPI chronic cough HPI Details 52-year-old lady, nonsmoker, with underl omari history of gastric adeocarcinoma in 2019, now status post chemo/immunotherapy ended in May of 2022 after which patient developed chronic nonproductive cough that is worse when laying down. She has been tried on albuterol MDI, albuterol nebs, Singulair, and b.i.d. PPI with suboptimal control of her symptoms. She continues to follow-up with Gastroenterology and is scheduled for endoscopy. She denies family history of lung disease or personal history of lung disease. She denies exposure to industrial dusts. His CT chest demonstrated small pulmonary nodule. After the last office visit she was started on Advair, Yasemin, and Flonase. Patient states that her symptoms improved, however she does experience metallic taste in her mouth after using Advair. She also completed her immunologic testing. [facility] Medical History (Updated 01/26/23 @ 13:32 by Jerome De La Rosa MD) Allergic rhinitis Carpal tunnel syndrome Odynophagia Dysphagia Anemia No known health problems Surgical History (Updated 05/17/20 @ 09:01 by DENITA Spencer) Hx of endoscopy Hx of section Hx of bilateral breast reduction surgery Hx of colonoscopy H/O: hysterectomy Family History (Updated 05/21/20 @ 15:18 by Lexii Martínez [facility]) Family/Other Family history normal Mother No problems noted. Social History Household Members: Spouse Housing: House Do you presently have visiting nurse or other home services: No Alcohol intake: current Alcohol intake frequency: does not drink Patient Tobacco Use Status: Never used Tobacco service: No Current occupational status: unemployed Review of Systems Const Denies daytime sleepiness, Denies excessive sweating, Denies fatigue, Denies fever(s), Denies lethargy, Denies malaise, Denies night sweats, Denies snoring and Denies weight loss Eyes Denies blurry vision and Denies itchy eyes ENT Denies nasal congestion, Denies post nasal drip, Denies sinus pain, Denies sinus pressure and Denies other ( Thrush) Card Denies chest pain, Denies pedal edema, Denies dyspnea, Denies orthopnea and Denies paroxysmal nocturnal dyspnea Resp Denies cough, Denies hemoptysis, Denies excessive phlegm production, Denies dyspnea, Denies snoring and Denies wheezing GI Denies abdominal pain and Denies heartburn Musc Denies myalgias, Denies arthralgias and Denies joint swelling Skin/Breast Denies rash Neuro Denies memory loss and Denies seizure-like activity Psych Denies abnormal sleep pattern, Denies anxiety and Denies memory loss Endo Denies excessive sweating, Denies fatigue and Denies heat intolerance Aryan/Lymph Denies easy bruising Aller/Immun Denies itchy eyes, Denies seasonal rhinorrhea and Denies wheezing Physical Exam Vital Signs: Last Vital Signs Pulse 77 02/28/23 09:30 BP 98/62 02/28/23 09:30 Pulse Ox 97 02/28/23 09:30 Oxygen Delivery Method Room Air 02/28/23 09:30 BMI result Body Mass Index 27.4 Const General: no acute distress and alert Nutritional Appearance: not obese Orientation/consciousness: Other orientation findings ( oriented) HEENT Head: Yes atraumatic Eyes General: appearance normal, both eyes and all related structures Sclerae: sclerae normal EOM: EOMs intact bilaterally Neck Neck: Yes supple Lymphatic: no lymphadenopathy noted Resp Effort & Inspection: normal respiratory effort and no use of accessory muscles Auscultation: clear to auscultation bilaterally Cardio Rate: regular rate Rhythm: regular rhythm Heart sounds: no gallops, no murmurs and no rubs Skin General skin exam: other ( warm) Extrem General: No clubbing, No cyanosis and No edema Assessment & Plan Assessment & Plan (1) Chronic cough: Code(s): R05.3 - Chronic cough Plan: Improved control on Advair. No significant response to Flonase and Yasemin. Will discontinue at this time. (2) Environmental allergies: Code(s): Z91.09 - Other allergy status, other than to drugs and biological substances Plan: Results of IgE level, RAST panel, and CBC with differential reviewed. He have symptoms fail to be controlled on inhaled corticosteroid/long-acting beta agonist combination, will consider immunologic therapy. Coding Level of Care Code Est Pt Level 4 (38691) Diagnoses Chronic cough R05.3 Environmental allergies Z91.09
== END 2023-02-28 09:55 | disposition home or self-care (01) ==
PROVIDERS: PCP Family Medicine; Visit Provider Internal Medicine Pulmonary Disease
DX: R05.3 Chronic cough (principal); Z91.09 Other allergy status, other than to drugs and biological substances
CPT/HCPCS: 99214

== ENCOUNTER → 2023-02-28 09:11 | Outpatient (BNVA) | payer MEDICAID, SELFPAY | PROVIDERS: PCP Family Medicine; Visit Provider Internal Medicine Pulmonary Disease | DX: R05.3 Chronic cough (principal); Z91.09 Other allergy status, other than to drugs and biological substances | CPT/HCPCS: 99212 ==

== ENCOUNTER 2023-03-02 08:13 | Outpatient (AMB) | payer MEDICAID, SELFPAY ==
--- NOTE | 2023-03-02 08:17 | A.OFFVIS_ITS ---
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 Andino. States numbness has improved a little, complaints of pain near incision area. Sutures removed and steri strips applied. 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 Andino. She continues to have pain near the incision area and reports her numbness has improved since previously. She is doing well otherwise and has no concerns today. [facility] Medical History (Updated 01/26/23 @ 13:32 by Jerome De La Rosa MD) Allergic rhinitis Carpal tunnel syndrome Odynophagia Dysphagia Anemia No known health problems Surgical History Hx of endoscopy Hx of section Hx of bilateral breast reduction surgery Hx of colonoscopy H/O: hysterectomy Family History (Updated 05/21/20 @ 15:18 by Lexii Martínez [facility]) Family/Other Family history normal Mother No problems noted. Social History Household Members: Spouse Housing: House Do you presently have visiting nurse or other home services: No Alcohol intake: current Alcohol intake frequency: does not drink Patient Tobacco Use Status: Never used Tobacco service: No Current occupational status: unemployed Review of Systems Const All systems reviewed & are unremarkable except as noted in HPI and below Physical Exam Vital Signs: BMI result Body Mass Index 27.3 Extrem Other: Left hand: Incision clean, dry and intact. No erythema, no redness. She does have mild discomfort over the thenar eminence. She is about 1 cm from making a closed fist. Assessment & Plan Assessment & Plan (1) Carpal tunnel syndrome of left wrist: Code(s): G56.02 - Carpal tunnel syndrome, left upper limb Plan Sutures removed today, steri strips applied. I did educate her on the recovery process. I recommend no heavy lifting for the next 2-3 weeks and to avoid submerging her wrist in water for another week until the incision is fully healed. I did explain that full resolution of symptoms could take approximately 6 weeks. 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 She is interested in having her right hand done for CTR. I encouraged her to make an appointment with Dr. Andino to discuss going further. She will see us back as needed for the left if symptoms persist or worsen. Orders: Orders OT Evaluation and Treatment Today G56.02 - Carpal tunnel syndrome, left upper limb Patient Instructions: Scribed for Anson Aguilar PA-C, by Moshe Thibodeaux medical assembler, on 03/02/2023 at 8:30 AM EST. Melissa, Anson Aguilar PA-C, have personally reviewed and agree with the information entered by the scribe. Coding Level of Care Code Global (08166) Diagnoses Carpal tunnel syndrome of left wrist G56.02
[2023-03-02 08:21] VITALS: BMI 27.3
== END 2023-03-02 08:48 | disposition home or self-care (01) ==
PROVIDERS: PCP Family Medicine; Visit Provider Physician Assistant
DX: G56.02 Carpal tunnel syndrome, left upper limb (principal)
CPT/HCPCS: 99024

== ENCOUNTER → 2023-03-02 08:13 | Outpatient (BNVA) | payer MEDICAID, SELFPAY | PROVIDERS: PCP Family Medicine; Visit Provider Orthopaedic Surgery ==

== ENCOUNTER → 2023-04-24 09:49 | Outpatient (BNVA) | payer MEDICAID, SELFPAY | PROVIDERS: PCP Family Medicine; Visit Provider Orthopaedic Surgery ==

== ENCOUNTER 2023-06-12 15:12 | Outpatient (AMB) | payer MEDICAID, SELFPAY ==
[2023-06-12 15:14] VITALS: BP 122/60; PULSE 90; O2SAT 97; BMI 28.6
--- NOTE | 2023-06-12 15:14 | A.OFFVIS_ITS ---
Intake Vital Signs 06/12/23 15:14 Height 4 ft 9 in Weight 132 lb 4.438 oz BMI 28.6 BP 122/60 Blood Pressure Location Rt brachial Position Sitting Pulse 90 Pulse Source Doppler Pulse Oximetry (%) 97 Oxygen Delivery Method Room Air Intake Visit Reasons: chronic cough Security Sergeant Required: Yes Security Sergeant Name: Bonnie Mickey Dewey Allergies Latex Allergy (Unknown, Uncoded 03/02/23 08:30) Rash HPI chronic cough HPI Details 53-year-old lady, nonsmoker, with underl omari history of gastric adenocarcinoma in 2019, now status post chemo/immunotherapy ended in May of 2022 after which patient developed chronic nonproductive cough that is worse when laying down. She has been tried on albuterol MDI, albuterol nebs, Singulair, and b.i.d. PPI with suboptimal control of her symptoms. She continues to follow-up with Gastroenterology. She denies family history of lung disease or personal history of lung disease. She denies exposure to industrial dusts. Her CT chest demonstrated small pulmonary nodule. She continues on Advair, Yasemin, and Flonase with reasonable asthmatic symptom control, however still with significant allergic/rhinitis symptoms. [facility] Medical History (Updated 01/26/23 @ 13:32 by Jerome De La Rosa MD) Allergic rhinitis Carpal tunnel syndrome Odynophagia Dysphagia Anemia No known health problems Surgical History Hx of endoscopy Hx of section Hx of bilateral breast reduction surgery Hx of colonoscopy H/O: hysterectomy Family History (Updated 05/21/20 @ 15:18 by Lexii Martínez [facility]) Family/Other Family history normal Mother No problems noted. Social History Household Members: Spouse Housing: House Do you presently have visiting nurse or other home services: No Alcohol intake: current Alcohol intake frequency: does not drink Patient Tobacco Use Status: Never used Tobacco service: No Current occupational status: unemployed Review of Systems Const Denies daytime sleepiness, Denies excessive sweating, Denies fatigue, Denies fever(s), Denies lethargy, Denies malaise, Denies night sweats, Denies snoring and Denies weight loss Eyes Denies blurry vision and Denies itchy eyes ENT Reports nasal congestion, Reports post nasal drip, Denies sinus pain, Denies sinus pressure and Denies other ( Thrush) Card Denies chest pain, Denies pedal edema, Denies dyspnea, Denies orthopnea and Denies paroxysmal nocturnal dyspnea Resp Denies cough, Denies hemoptysis, Denies excessive phlegm production, Denies dyspnea, Denies snoring and Denies wheezing GI Denies abdominal pain and Denies heartburn Musc Denies myalgias, Denies arthralgias and Denies joint swelling Skin/Breast Denies rash Neuro Denies memory loss and Denies seizure-like activity Psych Denies abnormal sleep pattern, Denies anxiety and Denies memory loss Endo Denies excessive sweating, Denies fatigue and Denies heat intolerance Aryan/Lymph Denies easy bruising Aller/Immun Denies itchy eyes, Denies seasonal rhinorrhea and Denies wheezing Physical Exam Vital Signs: Last Vital Signs Pulse 90 06/12/23 15:14 BP 122/60 06/12/23 15:14 Pulse Ox 97 06/12/23 15:14 Oxygen Delivery Method Room Air 06/12/23 15:14 BMI result Body Mass Index 28.6 Const General: no acute distress and alert Nutritional Appearance: not obese Orientation/consciousness: Other orientation findings ( oriented) HEENT Head: Yes atraumatic Eyes General: appearance normal, both eyes and all related structures Sclerae: sclerae normal EOM: EOMs intact bilaterally Neck Neck: Yes supple Lymphatic: no lymphadenopathy noted Resp Effort & Inspection: normal respiratory effort and no use of accessory muscles Auscultation: clear to auscultation bilaterally Cardio Rate: regular rate Rhythm: regular rhythm Heart sounds: no gallops, no murmurs and no rubs Skin General skin exam: other ( warm) Extrem General: No clubbing, No cyanosis and No edema Assessment & Plan Assessment & Plan (1) Chronic cough: Code(s): R05.3 - Chronic cough Plan: Well controlled current regimen of Advair and albuterol MDI. Continue current regimen. (2) Environmental allergies: Code(s): Z91.09 - Other allergy status, other than to drugs and biological substances Plan: At this time suboptimal baseline control on Singulair and Flonase, though patient is not interested in further immunologic therapy. Continue to monitor clinically. Coding Level of Care Code Est Pt Level 4 (84822) Diagnoses Chronic cough R05.3 Environmental allergies Z91.09
== END 2023-06-12 15:27 | disposition home or self-care (01) ==
PROVIDERS: PCP Family Medicine; Visit Provider Internal Medicine Pulmonary Disease
DX: R05.3 Chronic cough (principal); Z91.09 Other allergy status, other than to drugs and biological substances
CPT/HCPCS: 99214

== ENCOUNTER → 2023-06-12 15:12 | Outpatient (BNVA) | payer MEDICAID, SELFPAY | PROVIDERS: PCP Family Medicine; Visit Provider Internal Medicine Pulmonary Disease | DX: R05.3 Chronic cough (principal); Z91.09 Other allergy status, other than to drugs and biological substances | CPT/HCPCS: 99212 ==

== ENCOUNTER 2023-08-01 08:55 | Outpatient (AMB) | payer MEDICAID, SELFPAY ==
--- NOTE | 2023-08-01 09:07 | A.OFFVIS_ITS ---
Intake Vital Signs 08/01/23 09:08 Height 4 ft 9 in Weight 132 lb BMI 28.6 Intake Visit Reasons: Newprob-right hand CTS? discuss surgery Intake Note: Coni 53 yr old right hand dominant female presents today for a new problem visit for her right hand CTS. EMG done and would like to discuss surgery vs treatment. States symptoms have been presents for about 5 years and has worsen. States she would like to to have surgery at end of October 2023. Hx of left hand CTR 02/22/23, states she is not able to do heavy lifting and O.T never called her to schedule appointment. Allergies Latex Allergy (Unknown, Uncoded 08/01/23 09:19) Rash HPI Newprob-right hand CTS? discuss surgery HPI Details Radha is a 53 year old right hand dominant Iranian speaking woman who returns to discuss her right carpal tunnel syndrome. She continues to have right hand numbness, which has been present for many years and worsened over time. Her symptoms are constant, worse with activity and at night. 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 She has tried bracing and injections in the past without relief She has a hx of a left carpal tunnel release, DOS: 02/22/23. She says this went well and her sensation is now normal. She reports having trouble lifting very heavy objects with her left hand. She has a hx of stomach & esophagus cancer, but is currently not on any immunotherapy medication. She says her mother is very sick and she is caring for her, so she is unsure when she could have surgery. [facility] Medical History (Updated 01/26/23 @ 13:32 by Jerome De La Rosa MD) Allergic rhinitis Carpal tunnel syndrome Odynophagia Dysphagia Anemia No known health problems Surgical History Hx of endoscopy Hx of section Hx of bilateral breast reduction surgery Hx of colonoscopy H/O: hysterectomy Family History (Updated 05/21/20 @ 15:18 by Lexii Martínez CMA) Family/Other Family history normal Mother No problems noted. Social History Household Members: Spouse Housing: House Do you presently have visiting nurse or other home services: No Alcohol intake: current Alcohol intake frequency: does not drink Patient Tobacco Use Status: Never used Tobacco service: No Current occupational status: unemployed Review of Systems Const All systems reviewed & are unremarkable except as noted in HPI and below Physical Exam Vital Signs: BMI result Body Mass Index 28.6 Const General: cooperative, healthy appearing and no acute distress Orientation/consciousness: patient oriented x3 HEENT Head: Yes normocephalic and Yes atraumatic Eyes EOM: EOMs intact bilaterally Resp Effort & Inspection: normal respiratory effort and able to speak in complete sentences Cardio Jugular venous distension: no JVD Skin General skin exam: turgor normal Rashes: no rashes Neuro General: patient oriented x3 Extrem Other: Evaluation of Right Upper Extremity: The patient is alert, oriented, and in no acute distress Neuro: Dense numbness in the median nerve distribution of the right hand. Normal sensation to the ulnar nerve distribution No thenar or intrinsic wasting Good APB muscle belly firing and good finger cross Vascular: Cap refill brisk ROM: She can make a fist and extend all her digits No locking or catching Nerve Conduction Study: Impression: Moderate-severe bilateral carpal tunnel syndrome Dr. Ahumada 11/01/22 Psych Appearance: grossly normal Affect: normal affect Attitude: cooperative Assessment & Plan Assessment & Plan (1) Carpal tunnel syndrome of right wrist: Code(s): G56.01 - Carpal tunnel syndrome, right upper limb Plan Assessment & Plan: 1. Right Carpal tunnel syndrome, moderate-severe Symptoms intermittent, but daily, worse with activity & at night I educated her about this condition I discussed operative and non-operative treatment options The patient would like to proceed with surgery, beginning with the left side The risks and benefits of operative treatment were discussed with the patient and the patient wishes to proceed with surgery. These risks include, but are not limited to risk of damage to blood vessels, nerves, tendons, infection, recurrence, incomplete relief of preoperative symptoms, persistent pain, possible need for further surgery and the risks associated with regional blocks and anesthesia. The plan is to take the patient to the operating room sometime in the next few months for the following procedures: 1. Right Carpal tunnel release, under local All of the preoperative paperwork including the consent was reviewed today. All the patient's questions were answered. The patient understands that they will be contacted by our low pressure boiler operator soon to schedule this procedure. She is caring for her sick mother and is unable to have surgery until the end of October at the earliest. She denies Diabetes, blood thinners, asthma, heart, lung, kidney issues She has a hx of stomach & esophagus cancer, but is currently not on any immunotherapy medication 2. Left Carpal tunnel syndrome, S/P release DOS: 02/22/23 Pre-operative symptoms intermittent, but daily, worse with activity & at night Now with normal sensation Scribed for Riana Andino MD by Jacky Tovar, medical review coordinator, on 08/01/23 at 9:30 AM, EST. Coding Level of Care Code Est Pt Level 4 (43909) Diagnoses Carpal tunnel syndrome of right wrist G56.01
[2023-08-01 09:08] VITALS: BMI 28.6
== END 2023-08-01 09:37 | disposition home or self-care (01) ==
PROVIDERS: PCP Family Medicine; Visit Provider Orthopaedic Surgery
DX: G56.01 Carpal tunnel syndrome, right upper limb (principal)
CPT/HCPCS: 99214

== ENCOUNTER → 2023-08-01 08:55 | Outpatient (BNVA) | payer MEDICAID, SELFPAY | PROVIDERS: PCP Family Medicine; Visit Provider Orthopaedic Surgery | DX: G56.01 Carpal tunnel syndrome, right upper limb (principal) | CPT/HCPCS: 99212 ==

== ENCOUNTER 2023-09-26 15:50 | Outpatient (REF) | payer MEDICAID, SELFPAY ==
[2023-09-26 17:55] LABS: MANUAL DIFF FLAG NO
[2023-09-26 17:59] LABS: Basophils Percent Auto 0.7 % (0-2); Eosinophils Absolute Auto 0.4 X10*3/uL (0.0-0.4); Eosinophils Percent Auto 6.6 % (0-4); Hematocrit 37.5 % (37.0-47.0); Hemoglobin 12.7 g/dl (12.0-16.0); Imm Gran Abs Auto 0.02 X10*3/uL (0.00-0.03); Imm Gran Pct Auto 0.3 % (0.0-0.4); Lymphocytes Percent Auto 32.6 % (20-40); Mean Corpuscular HGB Conc 33.9 g/dl (31.0-35.0); Mean Corpuscular Hemoglobin 27.9 pg (27.0-33.0); Mean Corpuscular Volume 82.4 fL (80.0-98.0); Mean Platelet Volume 10.3 fL (9.4-12.3); Monocytes Absolute Auto 0.4 X10*3/uL (0.1-1.2); Monocytes Percent Auto 6.9 % (2-11); Neutrophils Absolute Auto 3.2 x10*3/uL (2.0-8.3); Neutrophils Percent Auto 52.9 % (45-73); Platelet Count 237 X10*3/uL (160-400); Red Blood Count 4.55 X10*6/uL (4.20-5.50); Red Cell Distribution Width 13.4 % (11.0-16.0); White Blood Count 6.1 X10*3/uL (4.8-10.8)
[2023-09-26 18:11] LABS: Alanine Aminotransferase 33 U/L (0-31); Albumin Level 4.4 g/dL (3.5-5.0); Alkaline Phosphatase 93 U/L (39-117); Anion Gap 13 (12-20); Aspartate Amino Transferase 35 U/L (5-31); Bilirubin Total 0.3 mg/dL (0.0-1.0); Blood Urea Nitrogen 14 mg/dL (9-16); C Reactive Protein 0.13 mg/dL (< or = 0.50); Calcium 9.2 mg/dL (8.4-10.2); Carbon Dioxide 25 mmol/L (22-29); Chloride 107 mmol/L (96-108); Estimated Glomerular Filt Rate > 60; Glucose Random 91 mg/dL (60-115); Potassium 3.7 mmol/L (3.3-5.1); Sodium 141 mmol/L (135-145); Total Protein 7.4 g/dL (6.5-8.0)
[2023-09-26 18:39] LABS: Erythrocyte Sedimentation Rate 6 MM/HR (0-20)
== END 2023-09-26 15:51 | disposition home or self-care (01) ==
LOC: HO.HHCL 15:50
PROVIDERS: Visit Provider Family Medicine
DX: R51.9 Headache, unspecified (principal); H70.001 Acute mastoiditis without complications, right ear
CPT/HCPCS: 36415; 80053; 85025; 85652; 86140

== ENCOUNTER 2023-10-17 11:26 | Outpatient (AMB) | payer MEDICAID, SELFPAY ==
[2023-10-17 11:38] VITALS: BMI 28.6
--- NOTE | 2023-10-17 11:38 | A.OFFVIS_ITS ---
Vital Signs 10/17/23 11:38 Height 4 ft 9 in Weight 132 lb BMI 28.6 Intake Visit Reasons: Preop RT CTR 10/25/23 AR Intake Note: Radha 53 yr old female presents today for her Preop visit for her right CTR 10/25/23 AR. Consent has been signed and all questions have been answered. Allergies Latex Allergy (Unknown, Uncoded 10/17/23 11:40) Rash HPI HPI Preop RT CTR 10/25/23 AR: Details: jacob is a 53 year old right hand dominant Indonesian speaking woman who returns to follow up right carpal tunnel syndrome. She reports having right hand dense numbness, which has been present for many years and worsened over time. Her symptoms are constant, worse with activity and at night. 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 She has tried bracing and injections in the past without relief She has a hx of a left carpal tunnel release, DOS: 02/22/23. She says this went well and her sensation is now normal. She has a hx of stomach & esophagus cancer, but is currently not on any immunotherapy medication. [facility] Medical History (Updated 01/26/23 @ 13:32 by Jerome De La Rosa MD) Allergic rhinitis Carpal tunnel syndrome Odynophagia Dysphagia Anemia No known health problems Surgical History Hx of endoscopy Hx of section Hx of bilateral breast reduction surgery Hx of colonoscopy H/O: hysterectomy Family History (Updated 05/21/20 @ 15:18 by Lexii Martínez [facility]) Family/Other Family history normal Mother No problems noted. Social History Household Members: Spouse Housing: House Do you presently have visiting nurse or other home services: No Alcohol intake: current Alcohol intake frequency: does not drink Patient Tobacco Use Status: Never used Tobacco service: No Current occupational status: unemployed Review of Systems Const All systems reviewed & are unremarkable except as noted in HPI and below Physical Exam Vital Signs: BMI result Body Mass Index 28.6 Extrem Other: Patient was alert oriented and in no acute distress. She has dense numbness in the right median nerve distribution. Normal sensation in the small finger Good APB muscle belly firing and no thenar atrophy. She can make a fist and extend all of her digits No locking or catching Cap refill brisk Regarding the left hand: She has normal sensation to all digits. Assessment & Plan Assessment & Plan (1) Carpal tunnel syndrome of right wrist: Code(s): G56.01 - Carpal tunnel syndrome, right upper limb Category: Medical Plan Assessment & Plan: 1. Right Carpal tunnel syndrome, moderate-severe Now with dense numbness in the median nerve distribution I educated her about this condition I discussed operative and non-operative treatment options The patient would like to proceed with surgery The risks and benefits of operative treatment were discussed with the patient and the patient wishes to proceed with surgery. These risks include, but are not limited to risk of damage to blood vessels, nerves, tendons, infection, recurrence, incomplete relief of preoperative symptoms, persistent pain, possible need for further surgery and the risks associated with regional blocks and anesthesia. The plan is to take the patient to the operating room sometime in the next few weeks for the following procedures: 1. Right Carpal tunnel release, under local All of the preoperative paperwork including the consent was reviewed today. All the patient's questions were answered. She is caring for her sick mother and is unable to have surgery until the end of October at the earliest. She denies Diabetes, blood thinners, asthma, heart, lung, kidney issues She has a hx of stomach & esophagus cancer, but is currently not on any immunotherapy medication Patient reports she is not available to present for surgery in the AM. She would like the procedure to be scheduled for the afternoon. 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 2. Left Carpal tunnel syndrome, S/P release DOS: 02/22/23 Pre-operative symptoms intermittent, but daily, worse with activity & at night Now with normal sensation Patient Instructions: Scribed by Tri Lind certified medical technician assistant, for Dr. Riana Andino on 10/17/2023 at 11:51 am, EST. Coding Level of Care Code Est Pt Level 4 (96582) Diagnoses Carpal tunnel syndrome of right wrist G56.01
== END 2023-10-17 12:31 | disposition home or self-care (01) ==
PROVIDERS: PCP Family Medicine; Referring Provider Family Medicine; Visit Provider Orthopaedic Surgery
DX: G56.01 Carpal tunnel syndrome, right upper limb (principal)
CPT/HCPCS: 99024

== ENCOUNTER → 2023-10-17 11:26 | Outpatient (BNVA) | payer MEDICAID, SELFPAY | PROVIDERS: PCP Family Medicine; Visit Provider Orthopaedic Surgery | DX: Z01.818 Encounter for other preprocedural examination (principal); G56.01 Carpal tunnel syndrome, right upper limb | CPT/HCPCS: 99212 ==

== ENCOUNTER 2023-10-25 11:40 | Day surgery (SDC) | payer MEDICAID, SELFPAY ==
[2023-10-25 12:22] VITALS: BMI 26.2
--- NOTE | 2023-10-25 12:23 | MHC.SHP ---
Pre-Procedural Eval Section A - 24 Hr Update-Section A only Date of Service: 10/25/23 The patient is an INPATIENT: No Changes since office visit: No Cold of Flu in the past 2 weeks, No New Medical Problems, No Changes in Medication and No Patient answered all questions The patient has been examined within 24 hours of the surgical procedure. The History & Physical has been completed within 30 days and I have reviewed it.: Yes Section B - Complete if H&P > 30 days Chief Complaint: Carpal tunnel syndrome, right upper limb Allergies: Allergies Allergy/AdvReac Type Severity Reaction Status Date / Time Latex Allergy Unknown Rash Uncoded 10/17/23 11:40 Plan I have reviewed the history and physical and performed a pertinent physical examination on my patient. No changes have occurred unless specified. Time Spent With Patient Time: Total time managing care of this patient today ____ minutes.
--- NOTE | 2023-10-25 12:23 | W.PM.OPN ---
Operative Note Operative Note Date of Service: 10/25/23 Narrative: Preop diagnosis: 1. Right Carpal tunnel syndrome Postop diagnosis: same Procedure: 1. Right Carpal tunnel release Surgeon: Riana Andino MD Anesthesia: local block using 1% lidocaine with epinephrine Findings: Thickened transverse carpal ligament. EBL: Less than 5 mL Specimens: None Complications: None Disposition: Brought to recovery room in stable condition Plan: Follow-up for 10-14 days for wound check and suture removal Indications: The patient is 53 years old, with right carpal tunnel syndrome that has been unresponsive to nonoperative management. The risks and benefits of operative treatment including but not limited to risk of damage to blood vessels, nerves, tendons, infection, persistent pain, persistent symptoms, or possible need for additional surgery were discussed with the patient and the patient wishes to proceed with surgery. Procedure: Once consent was obtained a local block was performed using a combination of 1% lidocaine with epinephrine. The patient was then brought back to the operating suite and placed on the operative table in supine position. The right upper extremity was prepped and draped in a standard surgical fashion. Once assured that we had a good block, a 2.0 cm longitudinal incision was made centered over the carpal tunnel. The incision was made through the skin to the subcutaneous tissues using a #15 blade. Dissection was made down to the level of the transverse carpal ligament with care being taken to protect the palmar cutaneous nerve. Once the transverse carpal ligament was clearly visualized, a longitudinal incision was made in the transverse carpal ligament 1st using a #15 blade, then using tenotomy scissors under direct visualization. Care was taken to look for and protect the motor branch of the median nerve when seen in this area. Once satisfied with our carpal tunnel release the wound was copiously irrigated with normal saline and hemostasis was obtained with a brief period of local pressure. The skin edges were reapproximated with some 5.0 nylon suture material and a sterile dressing was applied. The patient appears to have tolerated the procedure well and with no complications. All digits were well vascularized at the conclusion of the case.
[2023-10-25 12:25] VITALS: BP 113/68; PULSE 81; RESP 18; TEMP 36.8; O2SAT 97
[2023-10-25 14:10] VITALS: BP 117/59; PULSE 79; RESP 18; O2SAT 99
== END 2023-10-25 14:25 | disposition home or self-care (01) ==
PROVIDERS: PCP Family Medicine; Visit Provider Orthopaedic Surgery
PROC: (CPT 64721; principal; 2023-10-25 13:40)
DX: G56.01 Carpal tunnel syndrome, right upper limb (principal)
CPT/HCPCS: 64721; J0171; J2795

== ENCOUNTER → 2023-10-25 11:40 | Outpatient (BNV) | payer MEDICAID, SELFPAY | PROVIDERS: PCP Family Medicine; Visit Provider Orthopaedic Surgery | DX: G56.01 Carpal tunnel syndrome, right upper limb (principal) | CPT/HCPCS: 64721 ==

== ENCOUNTER 2023-11-07 12:08 | Outpatient (AMB) | payer MEDICAID, SELFPAY ==
--- NOTE | 2023-11-07 12:11 | MHC.OFFVIS ---
Vital Signs 11/07/23 12:15 Height 4 ft 9 in Weight 121 lb BMI 26.2 Intake Visit Reasons: PO RT CTR 10/25/23 AR Intake Note: Radha 53 yr old female presents today for her PO visit for her right hand CTR 10/25/23 AR. States that she is still having some residual numbness. She has swelling at the base of the palm. Sutures removed, steris applied Allergies Latex Allergy (Unknown, Uncoded 10/17/23 11:40) Rash HPI HPI PO RT CTR 10/25/23 AR: Details: Radha is a 53 year old right hand dominant woman who presents S/P right carpal tunnel release, DOS: 10/25/23. She says she is doing well and her numbness has started to improve. She continues to have some numbness in her fingers but says this is better than before surgery. She is concerned about some swelling to the base of her palm. 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 [facility] Medical History (Updated 11/07/23 @ 12:17 by Elisabeth Alexander CMA) Carpal tunnel syndrome of left wrist Allergic rhinitis Carpal tunnel syndrome Odynophagia Dysphagia Anemia No known health problems Surgical History (Updated 11/07/23 @ 12:17 by Elisabeth Alexander CMA) History of carpal tunnel release (10/25/23) Hx of endoscopy Hx of section Hx of bilateral breast reduction surgery Hx of colonoscopy H/O: hysterectomy Family History Family/Other Family history normal Mother No problems noted. Social History Household Members: Spouse Housing: House Do you presently have visiting nurse or other home services: No Alcohol intake: current Alcohol intake frequency: does not drink Patient Tobacco Use Status: Never used Tobacco service: No Current occupational status: unemployed Review of Systems Const All systems reviewed & are unremarkable except as noted in HPI and below Physical Exam Vital Signs: BMI result Body Mass Index 26.2 Const General: no acute distress and alert Orientation/consciousness: patient oriented x3 Neuro General: patient oriented x3 Extrem Other: The patient was alert oriented and in no acute distress The incision is healing well with no erythema drainage or evidence of infection. Sutures removed and Steri-Strips applied She can make a fist and extend all her digits Sensation is improving but not yet normal in the median nerve distribution Cap refill is brisk Psych Appearance: grossly normal Affect: normal affect Attitude: cooperative Assessment & Plan Assessment & Plan (1) Carpal tunnel syndrome of right wrist: Code(s): G56.01 - Carpal tunnel syndrome, right upper limb Category: Medical Plan Assessment & Plan: 1. Right Carpal tunnel syndrome, S/P release DOS: 10/25/23 Pre-operatively with dense numbness Now with improved but not yet normal sensation The patient appears to be doing well post-operatively I educated her about the post-operative course. 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 Left Carpal tunnel syndrome, S/P release DOS: 02/22/23 Pre-operative symptoms intermittent, but daily, worse with activity & at night Now with normal sensation Scribed for Riana Andino MD by Jacky Tovar medical claims examiner, on 11/07/23 at 12:25 PM, EST. Coding Level of Care Code Global (05314) Diagnoses Carpal tunnel syndrome of right wrist G56.01
[2023-11-07 12:15] VITALS: BMI 26.2
== END 2023-11-07 16:07 | disposition home or self-care (01) ==
PROVIDERS: PCP Family Medicine; Visit Provider Orthopaedic Surgery
DX: G56.01 Carpal tunnel syndrome, right upper limb (principal)
CPT/HCPCS: 99024

== ENCOUNTER → 2023-11-07 12:08 | Outpatient (BNVA) | payer MEDICAID, SELFPAY | PROVIDERS: PCP Family Medicine; Visit Provider Orthopaedic Surgery | DX: Z47.89 Encounter for other orthopedic aftercare (principal); Z98.890 Other specified postprocedural states | CPT/HCPCS: 99212 ==

== ENCOUNTER 2024-08-22 09:11 | Outpatient (REF) | payer MEDICAID, SELFPAY ==
[2024-08-22 11:13] LABS: MANUAL DIFF FLAG NO
[2024-08-22 11:32] LABS: Basophils Percent Auto 0.5 % (0-2); Eosinophils Absolute Auto 0.6 X10*3/uL (0.0-0.4); Hematocrit 38.3 % (37.0-47.0); Hemoglobin 12.4 g/dl (12.0-16.0); Imm Gran Abs Auto 0.01 X10*3/uL (0.00-0.03); Imm Gran Pct Auto 0.2 % (0.0-0.4); Lymphocytes Absolute Auto 1.7 X10*3/uL (1.2-4.9); Mean Corpuscular HGB Conc 32.4 g/dl (31.0-35.0); Mean Corpuscular Hemoglobin 28.3 pg (27.0-33.0); Mean Corpuscular Volume 87.4 fL (80.0-98.0); Mean Platelet Volume 10.7 fL (9.4-12.3); Monocytes Absolute Auto 0.3 X10*3/uL (0.1-1.2); Monocytes Percent Auto 5.2 % (2-11); Neutrophils Absolute Auto 3.6 x10*3/uL (2.0-8.3); Neutrophils Percent Auto 58.1 % (45-73); Platelet Count 207 X10*3/uL (160-400); Red Blood Count 4.38 X10*6/uL (4.20-5.50); Red Cell Distribution Width 15.6 % (11.0-16.0); White Blood Count 6.1 X10*3/uL (4.8-10.8)
[2024-08-22 11:37] LABS: Estimated Average Glucose 108 mg/dL; Hemoglobin A1c % 5.4 % (<6.0); Total Hemoglobin (HGBA1C) 3302.8021 umol/L
[2024-08-22 11:54] LABS: Alanine Aminotransferase 40 U/L (0-31); Albumin Level 4.2 g/dL (3.5-5.0); Alkaline Phosphatase 96 U/L (39-117); Anion Gap 11 (12-20); Aspartate Amino Transferase 27 U/L (5-31); Bilirubin Total 0.4 mg/dL (0.0-1.0); Blood Urea Nitrogen 17 mg/dL (9-16); Calcium 8.9 mg/dL (8.4-10.2); Carbon Dioxide 26 mmol/L (22-29); Chloride 110 mmol/L (96-108); Cholesterol 185 mg/dL (<200); Estimated Glomerular Filt Rate > 60; Glucose Random 110 mg/dL (60-115); HDL Cholesterol 49 mg/dL (>40); LDL Cholesterol Calculated 110 mg/dL (<100); Sodium 143 mmol/L (135-145); Total Protein 7.3 g/dL (6.5-8.0); Triglycerides 133 mg/dL (<150)
[2024-08-22 11:56] LABS: Thyroid Stimulating Hormone 1.55 uIU/mL (0.32-4.0); Vitamin D 25-OH Total 19.4 ng/mL (>30)
[2024-08-22 12:10] LABS: Vitamin B12 232 pg/mL (200-900)
[2024-08-22 12:26] LABS: Reflex LDLD? No
== END 2024-08-22 09:12 | disposition home or self-care (01) ==
LOC: HO.HHCL 09:11
PROVIDERS: Visit Provider Family Medicine
DX: C16.9 Malignant neoplasm of stomach, unspecified (principal); E55.9 Vitamin D deficiency, unspecified; L65.9 Nonscarring hair loss, unspecified; R43.2 Parageusia
CPT/HCPCS: 36415; 80053; 80061; 82306; 82607; 82746; 83036; 84443; 85025

== ENCOUNTER 2025-02-10 09:23 | Outpatient (REF) | payer MEDICAID, SELFPAY ==
--- NOTE | ~2025-02-10 | XR_ITS ---
EXAMINATION: XR WRIST 3 OR MORE VIEWS RIGHT HISTORY: 1 month of right wrist pain over abductor pollicis longus area. COMPARISON: Comparison is made with the prior examination dated 08/30/2022. FINDINGS: Three views of the right wrist are submitted. Osseous mineralization is normal. There is no fracture or dislocation. The joint spaces are preserved. The soft tissues are unremarkable. XR/XR wrist RT min 3V IMPRESSION: Unremarkable examination of the right wrist. Electronically signed by: Elias Bush MD 02/10/2025 09:44 AM EDT
--- OUTSIDE RECORDS SUMMARY | 2025-02-10 09:00 | XMS_ITS | Encounter Summary ---
Author Organization [employer] Address [address] [place] [address] [address], [place] [address] Care Team Providers Care Banjo Repair Person Name Role Phone Becca Soni MD Primary Care Provider [phone] Reason for Referral * Consultation (Routine) - Pending Review Specialty Diagnoses / Procedures Referred By Anayeli smith Referred To Contact Hand Surgery Diagnoses De Quervain's disease (radial styloid tenosynovitis) Salima Mcpherson MD [address] [place] [address] Phone: tel: fax: Referral ID Status Reason Start Date Expiration Date Visits Requested Visits Authorized [id number] Pending Review Specialty Services Required 02/10/2025 02/10/2026 1 1 Reason for Visit * Reason Comments Hand Pain Encounter Details Date Type Department Care Team (Late st Contact Info) Description 02/10/2025 9:00 AM EDT Office Visit [facility] [address] [place] [address] [phone] Salima Mcpherson MD [address] [place] [address] [phone] De Quervain's disease (radial styloid tenosynovitis) (Primary Dx) Social History Tobacco Use Types Packs/Day Years Used Date Smoking Tobacco: Never Passive Smoke Exposure: Never Smokeless Tobacco: Never Tobacco Cessation:Counseling Given: Not Answered Alcohol Use Standard Drinks/Week Comments Never 0 (1 standard drink = 0.6 oz pur e alcohol) Depression Answer Date Recorded Patient Health Questionnaire-9 Score 0 09/24/2023 Patient Health Questionnaire-9 Score 0 09/24/2023 Last PHQ-9: Questionnaire Data Not on file 0 09/24/2023 Housing Stability Answer Date Recorded What is your housing situation today? I have fidencio carrillo 03/27/[address] you li ve. Do you have problems with any of the following? None of the above 03/27/2023 Food Insecurity Answer Date Recorded Within the past 12 months, y ou worried that your food would run out before you got money to buy more: Often true 03/27/2023 Within the past 12 months,th e food you bought just didn't last and you didn't have enough money to get more: Often true Transportation Answer Date Recorded In the past 12 months, has l ack of transportation kept you from medical appts, meetings, work or from getting things needed for daily living? No 03/27/2023 Utilities Answer Date Recorded In the past 12 months, has t he electric, gas, oil or water company threatened to shut off services in your home? No 03/27/2023 Depression Answer Date Recorded Patient Health Questionnaire-2 Score 0 09/24/2023 Comments Unknown Sex and Gender Information Value Date Recorded Sex Assigned at Female 04/03/2022 10:17 AM EDT Legal Sex Female 10:17 AM EDT Gender Identity Female 07/18/2022 9:12 AM EST Sexual Orientation Don't know 07/18/2022 9: 12 AM EST documented as of this encounter Last Filed Vital Signs Vital Sign Reading Time Taken Comments Blood Pressure 115/71 02/10/2025 8:49 AM EDT Pulse 85 02/10/2025 8:49 AM EDT Temperature 36.4 C (97.6 F) 02/10/2025 8:49 AM EDT Respiratory Rate 16 02/10/2025 8:49 AM EDT Oxygen Saturation - - Inhaled Oxygen Concentration - - Weight 59.6 kg (131 lb 6.4 oz) 02/10/2025 8:49 A M EDT Height 147.7 cm (4' 10.13 ) 02/10/2025 8:49 AM E DT Body Mass Index 27.34 02/10/2025 8:49 AM EDT documented in this encounter Progress Notes * Salima Mcpherson MD - 02/10/2025 9:00 AM EDT Subjective Patient ID: Radha Cabrera is a 54 y.o. female with past medical history gastric cancer, currently on chemotherapy who presents to walk in clinic for right wrist pain. 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 Denies hx trauma. She has been wearing a brace faithfully and taking acetmenophen. She had carpal tunnel release surgery by Dr. Andino on 10/25/23 with great results. Post-op on 11/07/23. Hand Pain Associated symptoms: no fever and no rash Review of Systems Constitutional: Negative for fever. Musculoskeletal: Negative for joint swelling. Skin: Negative for color change, rash and wound. Objective Visit Vitals BP 115/71 (BP Location: Left arm, Patient Position: Sitting, BP Cuff Size: Adult) Pulse 85 Temp 97.6 ??F (36.4 ??C) (Temporal) Resp 16 Body mass index is 27.34 kg/m??. Physical Exam Musculoskeletal: Left wrist: Normal. Comments: Right wrist with mild swelling and tenderness to palpation over the radial styloid process. Unable to perform Tanner's test due to pain limiting ability to flex thumb into palm. Decreased syruper strength due to pain. No erythema, warmth or visible deformity. Sensation intact to light touch in radial, median and ulnar nerve distributions. Capillary refills < 2 seconds Radial pulse 2+ Skin intact with no lesions. Assessment & Plan De Quervain's disease (radial styloid tenosynovitis) Suspect tenosynovitis of abductor pollicis longus and/or extensor pollicis brevis. -Will check x ray given unable to flex thumb into palm although fracture unlikely given history andexam. -acetaminophen and cyclobenzaprine prn. Advised do not drive with cyclobenzaprine. -referral to her hand surgeon -continue brace and rest -work note given. She did not want to take more than a week off Orders: XR Wrist 3+ Views Right; Future Referral to Hand Surgery; Future cyclobenzaprine (Flexeril) 10 MG tablet; One tab po at bedtime prn pain of muscles, do not drive with medicaion No future appointments. documented in this encounter Plan of Treatment Scheduled Referrals Name Type Priority Associated Diagnoses Orde r Schedule Referral to Hand Surgery Outpatient Referral Routine De Quervain's disease (radial styloid tenosynovitis) Expected: 02/10/2025 (Approximate), Expires: 02/10/2026 documented as of this encounter Procedures Procedure Name Priority Date/Time Associated Diagnosis Comments XR WRIST 3+ VIEWS RIGHT Routine 02/10/2025 9:33 AM EDT De Quervain's disease (radial styloid tenosynovitis) documented in this encounter Results * XR Wrist 3+ Views Right (02/10/2025 9:33 AM EDT) Anatomical Region Laterality Modality Upper Extremities, Wrist Right Radiogr aphic Imaging 02/10/2025 9:33 AM EDT Narrative 02/10/2025 9:47 [place] [address] XRay Report Signed Patient: Radha Cabrera MR#: [id number] : 1970 Acct:[id number] Age/Sex: 54 / F ADM Date: 02/10/25 Loc: .[facility] Attending Dr: Salima Mcpherson MD Ordering Physician: Salima Mcpherson MD Date of Service: 02/10/25 Procedure(s): XR wrist RT min 3V Accession Number(s): [id number] cc: Salima Mcpherson MD Reason for Exam: 1 month of right wrst pain over abductor policus longus area. EXAMINATION: XR WRIST 3 OR MORE VIEWS RIGHT HISTORY: 1 month of right wrist pain over abductor pollicis longus area. COMPARISON: Comparison is made with the prior examination dated 08/30/2022. FINDINGS: Three views of the right wrist are submitted. Osseous mineralization is normal. There is no fracture or dislocation. The joint spaces are preserved. The soft tissues are unremarkable. XR/XR wrist RT min 3V IMPRESSION: Unremarkable examination of the right wrist. Electronically signed by: Elias Bush MD 02/10/2025 09:44 AM EDT RP Dictated By: Elias Bush MD Signed By: <Electronically signed by Elias Bush MD in OV> 02/10/2544 DD/ 2 TD/TT: 02/10/25932 Refresh Technician: Procedure Note Donotuseinterpreter, Image - 02/10/[address] [address] XRay Report Signed Patient: Radha Cabrera AMR#: [id number] : 1970Acct:[id number] Age/Sex: 54 / FADM Date: 02/10/25 [facility]: Salima Mcpherson MD Ordering Physician: Salima Mcpherson MD Date of Service: 02/10/25 Procedure(s): XR wrist RT min 3V Accession Number(s): [id number] cc: Salima Mcpherson MD Reason for Exam: 1 month of right wrst pain over abductor policus longusarea. EXAMINATION: XR WRIST 3 OR MORE VIEWS RIGHT HISTORY: 1 month of right wrist pain over abductor pollicis longus area. COMPARISON: Comparison is made with the prior examination dated 08/30/2022. FINDINGS: Three views of the right wrist are submitted. Osseous mineralization is normal. There is no fracture or dislocation. The joint spaces are preserved. The soft tissues are unremarkable. XR/XR wrist RT min 3V IMPRESSION: Unremarkable examination of the right wrist. Electronically signed by: Elias Bush MD 02/10/2025 09:44 AM EDT RP Dictated By: Elias Bush MD Signed By: <Electronically signed by Elias Bush MD in OV> 02/10/2544 DD/ 2 TD/TT: 09/09/25 0933 Refresh Technician: Salima Mcpherson MD IMG XR PROCEDURES Edited R esult - Final documented in this encounter Visit Diagnoses Diagnosis De Quervain's disease (radial styloid tenosynovitis)- Primary documented in this encounter Additional Health Concerns Assessment Noted Time PHQ-9 Depression Total Score: 0 09/24/19 24 3:24 PM EDT documented as of this encounter Care Teams Banjo Repair Person Relationship Specialty Start Date End Date Becca Soni MD [address] [place] [address] PCP - General Family Medicine 08/24/22 documented as of this encounter
--- OUTSIDE RECORDS SUMMARY | 2025-02-10 10:49 | XMS_ITS | Clinical Summary ---
Author Organization [facility] Facility Address [address] [address] Care Team Providers Care Serging Machine Operator Automatic Name Role Phone Artemio Bustos MD Primary Care Provider [phone] Allergies Active Allergy Reactions Criticality Noted Date Comments Latex Rash Medium 05/06/2020 Medications ferrous sulfate 325 (65 Fe) MG tablet TAKE ONE TABLET BY MOUTH TWICE A DAY 04/13/2020 Active omeprazole (PriLOSEC) [address] capsule TAKE 1 CAPSULE BT MOUTH TWICE A DAY 04/13/2020 Active Active Problems Problem Noted Date Diagnosed Date Malignant neoplasm of stomach 05/05/2020 Social History Tobacco Use Types Packs/Day Years Used Date Smoking Tobacco: Never Smokeless Tobacco: Never Alcohol Use Standard Drinks/Week Comments Never 0 (1 standard drink = 0.6 oz pur e alcohol) AUDIT-C Answer Date Recorded Q1: How often do you have a drink containing alc ohol? Never 05/06/2020 Average Number of Drinks Not on file 020 Frequency of Binge Drinking Not on file 08/2019 Comments Unknown Sex and Gender Information Value Date Recorded Sex Assigned at Not on file Legal Sex Female 12:51 PM EST Gender Identity Not on file Sexual Orientation Not on file Last Filed Vital Signs Vital Sign Reading Time Taken Comments Blood Pressure 108/72 05/06/2020 7:48 AM EST Pulse 91 05/06/2020 7:48 AM EST Temperature 36.4 C (97.6 F) 05/06/2020 7:48 AM EST Respiratory Rate 16 05/06/2020 7:48 AM EST Oxygen Saturation 99% 05/06/2020 7:48 AM EST Inhaled Oxygen Concentration - - Weight 46.7 kg (103 lb) 05/06/2020 7:48 AM EST Height 144.8 cm (4' 9 ) 05/06/2020 7:48 AM EST Body Mass Index 22.29 05/06/2020 7:48 AM EST Plan of Treatment Health Maintenance Due Date Last Done Comments Breast Cancer Screening 1970 Hepatitis B Vaccine (1 of 3 - 19+ 3-dose series) 06/02 Pneumococcal Vaccine: 50+ Years (1 of 2 - PCV) 990 Colorectal Cancer Screening: Annual FOBT 2020 Colorectal Cancer Screening: Colonoscopy 2020 Colorectal Cancer Screening: Sigmoidoscopy 2020 Influenza Vaccine (#1) 2025 Insurance Medicaid [place] Care Teams Serging Machine Operator Automatic Relationship Specialty Start Date End Date Artemio Bustos MD [address] [place], [place] PCP - General Medical Oncology 05/06/20
--- OUTSIDE RECORDS SUMMARY | 2025-02-10 10:49 | XMS_ITS | Encounter Summary ---
Author Organization [employer] Address [address] [place] [address] 7 [place] [address] Care Team Providers Care Control Board Operator Name Role Phone Becca Soni MD Primary Care Provider [phone] Encounter Details Date Type Department Care Team ([facility] st Contact Info) Description 02/02/2023 Abstract [facility] [address] [place] [address] Becca Soni MD [address] [place] [address] Social History Tobacco Use Types Packs/Day Years Used Date Smoking Tobacco: Never Passive Smoke Exposure: Never Smokeless Tobacco: Never Alcohol Use Standard Drinks/Week Comments Never 0 (1 standard drink = 0.6 oz pur e alcohol) Depression Answer Date Recorded Patient Health Questionnaire-9 Score 0 08/24/2022 Depression Answer Date Recorded Patient Health Questionnaire-2 Score 0 08/24/2022 Comments Unknown Sex and Gender Information Value Date Recorded Sex Assigned at Female 04/03/2022 10:17 AM EDT Legal Sex Female 10:17 AM EDT Gender Identity Female 07/18/2022 9:12 AM EST Sexual Orientation Don't know 07/18/2022 9: 12 AM EST documented as of this encounter Plan of Treatment Not on file documented as of this encounter Visit Diagnoses Not on filedocumented in this encounter Additional Health Concerns Assessment Noted Time PHQ-9 Depression Total Score: 0 08/25/19 23 9:36 AM EDT documented as of this encounter Care Teams Control Board Operator Relationship Specialty Start Date End Date Becca Soni MD [address] [place] [address] PCP - General Family Medicine 08/24/22 documented as of this encounter
--- OUTSIDE RECORDS SUMMARY | 2025-02-10 10:49 | XMS_ITS | Encounter Summary ---
Author Organization [employer] Address [address] [facility] 7t [place] [address] Care Team Providers Care Chemistry Lab Instructor Name Role Phone Becca Soni MD Primary Care Provider [phone] Encounter Details Date Type Department Care Team ([facility] st Contact Info) Description 02/28/2024 Orders Only [facility] MEDICINE [address] [place], [place] [phone] Becca Soni MD [address] [place], [place] [phone] Lung nodule (Primary Dx) Social History Tobacco Use Types [...] documented as of this encounter Visit Diagnoses Diagnosis Lung nodule- Primary Other diseases of lung, not elsewhere classified documented in this encounter Additional Health Concerns Assessment Noted Time PHQ-9 Depression Total Score: 0 09/24/19 24 3:24 PM EDT documented as of this encounter Care Teams Chemistry Lab Instructor Relationship Specialty Start Date End Date Becca Soni MD [address] [place] [address] PCP - General Family Medicine 08/24/22 documented as of this encounter
--- OUTSIDE RECORDS SUMMARY | 2025-02-10 10:49 | XMS_ITS | Encounter Summary ---
Author Organization [employer] Address [address] [facility] 7 [place] [address] Care Team Providers Care Front End Ui Developer Name Role Phone Becca Soni MD Primary Care Provider [phone] Reason for Visit * Reason Onset Date Comments Nurse Triage 01/28/2025 Encounter Details Date Type Department Care Team ([facility] st Contact Info) Description 01/28/2025 Telephone [facility] MEDICINE [address] [place] [address] Becca Soni MD [address] [place] [address] Nurse Triage Social History Tobacco Use Types Packs/Day Years [...] AM EST documented as of this encounter Miscellaneous Notes * Telephone Encounter - Janice Naylor RN - 01/28/2025 1:14 PM EDT Triage call with [facility] barber instructor [place] [id number]. Pt reports having headache for several days. Headache is located in the forehead area which comes and goes with tylenol. Pt has had to take time off from work due to the pressure felt from the headache. Pt is not aware of BP value at this time. Pt reports drinking 6-8 glasses liquid daily. Pt denies fever, stiff neck, eye pain, sore throat or cold sx. Pt is given home care and advised to lay down for 20 min and apply ice to the forehead. Pt agrees to try this. Pt will continue to take tylenol as Pt has been. Pt is advised to call backor come to [facility] if needed in the next few days if now change. Pt is advised that Information will besent to PCP nursing team for prn follow up if needed. Pt agrees with disposition. Insurance is verified as active. Protocol Used: Headache (Adult) Protocol-Based Disposition: Home Care Positive Triage Question: * Mild to moderate headache * All higher-acuity triage questions were negative Care Advice Discussed: * Reassurance and Education - Muscle Tension Headache * Pain Medicines * Rest for Headache * Cold Pack for Headache * Neck Massage for Headache * Reasons To Call Back - Severe headache lasts over 2 hours after pain medicine - Headache lasts over 24 hours despite using a pain medicine - You become worse * Telephone Encounter - Tunde Dowd - 01/28/2025 12:26 PM EDT Symptom: Headache Outcome: Schedule an urgent appointment (within 4 hours) or talk to a nurse or provider soon Reason: Getting worse The caller accepted this outcome. English Speaking documented in this encounter Plan of Treatment Not on file documented as of this encounter Visit Diagnoses Not on filedocumented in this encounter Additional Health Concerns Assessment Noted Time PHQ-9 Depression Total Score: 0 09/24/19 24 3:24 PM EDT documented as of this encounter Care Teams Front End Ui Developer Relationship Specialty Start Date End Date Becca Soni MD [address] [place] [id number] PCP - General Family Medicine 08/24/22 documented as of this encounter
--- OUTSIDE RECORDS SUMMARY | 2025-02-10 10:49 | XMS_ITS | Encounter Summary ---
Author Organization [employer] Address [address] [facility] 7[address] [place] [address] Care Team Providers Care Gettering Operator Name Role Phone Becca Soni MD Primary Care Provider [phone] Encounter Details Date Type Department Care Team ([facility] st Contact Info) Description 05/11/2023 Abstract [facility] MEDICINE [address] [place], [place] [phone] Becca Soni MD [address] [place], [place] [phone] Social History Tobacco Use Types Packs/Day Years Used Date Smoking Tobacco: Never Passive Smoke Exposure: Never Smokeless Tobacco: Never Alcohol Use Standard Drinks/Week Comments Never 0 (1 standard drink = 0.6 oz pur e alcohol) Depression Answer Date Recorded Patient Health Questionnaire-9 Score 0 08/24/2022 Housing Stability Answer Date Recorded What is [...] on file documented as of this encounter Procedures Procedure Name Priority Date/Time Associated Diagnosis Comments COLONOSCOPY Routine 02/27/2019 documented in this encounter Results * Colonoscopy (02/27/2019) Colonoscopy Normal Normal Becca Soni MD HEALTH MAINTENANCE Edited Result - Final documented in this encounter Visit Diagnoses Not on filedocumented in this encounter Additional Health Concerns Assessment Noted Time PHQ-9 Depression Total Score: 0 08/25/19 9:36 AM EDT documented as of this encounter Care Teams Gettering Operator Relationship Specialty Start Date End Date Becca Soni MD [address] [place] [id number] PCP - General Family Medicine 08/24/22 documented as of this encounter
--- OUTSIDE RECORDS SUMMARY | 2025-02-10 10:49 | XMS_ITS | Encounter Summary ---
Author Organization [facility] [employer] Address [address] [place] [address] [address] [place] [address] Care Team Providers Care Paratransit Operator Name Role Phone Becca Soni MD Primary Care Provider [phone] Reason for Visit * Reason Onset Date Comments Nurse Triage 01/19/2023 Encounter Details Date Type Department Care Team ([facility] st Contact Info) Description 01/19/2023 Telephone [facility] [address] [place] [address] Becca Soni MD [address] [place] [address] Nurse Triage Social History Tobacco Use Types [...] Telephone Encounter - Janice Naylor RN - 01/19/2023 1:16 PM EDT Triage call with [employer] ID [id number] Pt reports chronic cough since August. Pt reports that the cough is productive with sputum white to greenish. Pt is neg for fever. Pt doesn't have difficulty breathing. Pt reports is scheduled for allergy testing in Jul and endoscopy in August. Pt is receiving cancer treatment. Pt reports itchy throat, nose and ears as well but not clear if Pt is stillable to take nikita daily as prescribed. Pt reports has albuterol 0.083% solution but has never received nebulizer machine. Apt with Dr. Greenwood 01/23/23 @ 1000am. Call to pharmacy shows that nebulizer machine which was ordered in november was never picked up by Pt. Nebulizer machines are available through pharmacy now. Call with [employer] In[employer]ter ID [id number] Advised Pt that a nebulizer machine is available for picking supervisor today at the [facility] pharmacy but, will not be held without picking supervisor. Pt agrees and states will picking supervisor machine within the hour. Pt is advised tostart using this treatment this weekend and see if this helps the cough. Pt agrees with this plan and disposition. Protocol Used: Cough (Adult) Protocol-Based Disposition: See in Office or Video Visit within 3 Days Positive Triage Question: * Cough has been present for > 3 weeks * All higher-acuity triage questions were negative Care Advice Discussed: * Reassurance and Education - Cough * Cough Medicines * Coughing Spells * Prevent Dehydration * Humidifier * Reasons To Call Back - Difficulty breathing - Cough lasts more than 3 weeks - Fever lasts more than 3 days - You become worse * Telephone Encounter - Marissa Andrews - 01/19/2023 11:41 AM EDT Symptom: Cough Outcome: Transfer to a nurse or provider NOW! Reason: Struggling for each breath (severe trouble breathing) The caller accepted this outcome Pt states she is been having this cough and difficulty breathing for days Pt is also a cancer pt . Please contact pt at [phone] Ukrainian Speaker documented in this encounter Plan of Treatment Not on file documented as of this encounter Visit Diagnoses Not on filedocumented in this encounter Additional Health Concerns Assessment Noted Time PHQ-9 Depression Total Score: 0 03/23/20 23 9:36 AM EDT documented as of this encounter Care Teams Paratransit Operator Relationship Specialty Start Date End Date Becca Soni MD [address] [place] [id number] PCP - General Family Medicine 08/24/22 documented as of this encounter
--- OUTSIDE RECORDS SUMMARY | 2025-02-10 10:49 | XMS_ITS | Clinical Summary ---
Author Organization [facility] Address [address] [place] [address] Care Team Providers Care Geology Faculty Member Name Role Phone eBcca Soni MD Primary Care Provider [phone] Allergies Active Allergy Reactions Criticality Noted Date Comments Amoxicillin 09/05/2019 Other reaction(s): Hives / Skin Rash, Itching Latex Rash Medium 10/23/2017 Other reaction(s): Unknown Medications ferrous sulfate 325 (65 Fe) MG tablet daily. 0 Active Spacer/Aero-Hol ding Chambers (OptiChamber Alicia) misc 1 each every 4 (four) hours if needed (asthma). 1 each 3 Active albuterol (2.5 MG/3ML) 0.083% nebulizer solution Take 3 mL (2.5 mg) by nebulization every 6 (six) hours if needed for wheezing or shortness of breath. 75 mL 1 3 Active albuterol 108 (90 Base) MCG/ACT inhaler Inhale 2 puffs every 4 (four) hours if needed for wheezing or shortness of breath. 18 g 1 3 Active acyclovir (Zovirax) 5 % cream Apply topically 5 (five) times a day. 5 g 2 3 Active Nebulizers (Compressor Nebulizer) misc 1 Units if needed in the morning, at noon, in the evening, and at bedtime (SOB or cough). 1 each 3 Active ibuprofen 600 MG tablet TAKE 1 TABLET (600 MG) BY MOUTH EVERY 8 (EIGHT) HOURS IF NEEDED FOR MILD PAIN OR FEVER. 45 tablet 1 4 Active hydrocortisone 2.5 % cream Apply to affected area thin layer once daily as needed 28 g 1 5 Active Lubricants (K-Y Jelly) gel Apply to affected area as needed 57 g 1 5 Active capecitabine (Xeloda) 500 MG chemo tablet 5 Active EPINEPHrine (Epipen) 0.3 MG/0.3ML injection syringe Inject 0.3 mg into the muscle. 4 Active fluticasone (Flonase) 50 MCG/ACT nasal spray Administer 1 spray into each nostril Once per day. Shake gently. Before first use, prime pump. After use, clean tip and replace cap. 48 mL 1 5 Active fexofenadine (Yasemin) 180 MG tabletIndicatio ns:Allergic rhinitis, unspecified seasonality, unspecified trigger TAKE 1 TABLET BY MOUTH IN THE MORNING FOR ALLERGIES 90 tablet 3 5 Active cholecalciferol (Vitamin D-3) 25 MCG (1000 UT) tablet Take 1 tablet (25 mcg) by mouth Once per day. 90 tablet 3 5 Active cyanocobalamin (Vitamin B-12) 1000 MCG tablet Take 1 tablet (1,000 mcg) by mouth Once per day. 30 tablet 11 5 08/23/19 26 Active cyclobenzaprine (Flexeril) 10 MG tabletIndicatio ns:De Quervain's disease (radial styloid tenosynovitis) One tab po at bedtime prn pain of muscles, do not drive with medicaion 30 tablet 5 Active Active Problems Problem Noted Date Diagnosed Date Environmental allergies 08/22/2024 Asthma 05/20/2023 Assessment & Plan (08/22/2024 2:53 PM EDT): -Followed by [facility] Juvenile Officer, last seen in Jun 2023 -Normal PFT in December 2022 -Allergy Test showed: mild allergy to Dog Dander, [place] Tree, [place] and [place] Tree, not significant result -Previously on fluticasone / salmeterol and montelukast -Continue Fexofenadine Assessment & Plan (09/24/2023 6:05 PM EDT): -Followed by [facility] Juvenile Officer, last seen in Jun 2023 -Normal PFT in December 2022 -Allergy Test showed: mild allergy to Dog Dander, [place] Tree, [place] and [place] Tree, not significant result -Continue fluticasone / solmeterol -Continue montelukast -Continue Fexofenadine -Encouraged to increase adherence to Advair -Follow up in 3-6 mo Assessment & Plan (05/20/2023 5:29 PM EST): -Followed by [facility] Juvenile Officer, last seen in Feb 2023 -Normal PFT in December 2022 -Allergy Test showed: mild allergy to Dog Dander, [place] Tree, [place] and [place] Tree, not significant result -Continue fluticasone / solmeterol -Continue montelukast -Continue Fexofenadine -Encouraged to increase adherence to Advair -Follow up in 3-6 mo Iron deficiency anemia due to chronic blood loss 05/11/2023 05/11/2023 Lung nodule 02/13/2023 Assessment & Plan (08/22/2024 2:48 PM EDT): - Last CT Scan in Jul 2024 - no suspicious region at this time, continue monitoring per onc Assessment & Plan (05/20/2023 5:26 PM EST): - Last CT Scan on 02/27/23 - right lower lobe - 3 mm, stable - follow-up CT in 12 mo is recommended Assessment & Plan (02/13/2023 9:07 AM EDT): Last CT Scan on 02/06/23 - right lower lobe - 4mm - follow-up CT in 12 mo is recommended Chronic cough 11/28/2022 Assessment & Plan (08/22/2024 2:51 PM EDT): -Evaluated by [facility] Juvenile Officer, last seen in Jun 2023 -Normal PFT in December 2022 -Allergy Test showed: mild allergy to Dog Dander, [place] Tree, [place] and [place] Tree, not significant result -Continue Fexofenadine and fluticasone nasal -Previously on ICS and montelukast, but patient has not been using -Most likely her gastric cancer recurrence was partly attributing to her symptoms -Optimize management for allergic rhinitis / hypersensitivity Assessment & Plan (09/24/2023 6:05 PM EDT): -Followed by [facility] Juvenile Officer, last seen in Jun 2023 -Normal PFT in December 2022 -Allergy Test showed: mild allergy to Dog Dander, [place] Tree, [place] and [place] Tree, not significant result -Continue fluticasone / solmeterol -Continue montelukast -Continue Fexofenadine -Encouraged to increase adherence to Advair -Follow up in 3-6 mo Assessment & Plan (05/20/2023 5:28 PM EST): -Followed by [facility] Juvenile Officer, last seen in Feb 2023 -Normal PFT in December 2022 -Allergy Test showed: mild allergy to Dog Dander, [place] Tree, [place] and [place] Tree, not significant result -Continue fluticasone / solmeterol -Continue montelukast -Continue Fexofenadine -Encouraged to increase adherence to Advair -Follow up in 3-6 mo Assessment & Plan (02/13/2023 9:48 AM EDT): -Pt was evaluated by Juvenile Officer on 12/07/22, and showed her PFT normal. -Pt currently trying Advair -Allergy Test showed: mild allergy to Dog Dander, [place] Tree, [place] and [place] Tree, not significant result -Cont Singulair -Continue Fexofenadine -Encouraged to increase adherence to advair -f/u w/ forestry scientist as scheduled CT Scan on 02/06/23 showed: pulmonary nodules on the right lower lobe -f/u in 1 yr Assessment & Plan (01/23/2023 10:40 AM EDT): Patient here for a sick visit. Pt of Dr. Soni Persistent cough, not improving, non productive, No fever, no diff breathing. Not responding to Tessalon, although states Fexofenadine helps Initial work up included a CXR from 09/20/2022 that was read as normal She was initially treated as bronchitis with azithromycin, which was ineffective and prednisone, but despite this she is still symptomatic Waiting for appt with pulmonology (01/26/2023 ) and customer acquisition specialist PFTs 12/09/2022: CONCLUSION: The baseline results are normal. There is no evidence of obstructive or restrictive pulmonary disorder. There is a negative response to bronchodilator therapy. Clinical correlation is recommended Plan: On exam lungs CTA bilateral O2 sat 99% RA No diff breathing, Etiology ? Likely allergic component Given her Hx of Gastric Cancer and previous treatment Folfox will obtain a CT of her Chest. Rule out folfox toxicity Add a BNP as well to rule a HF component. Pt confirmed her appointment with Pulmonology in 2 days Follow up with PCP next available Assessment & Plan (11/28/2022 12:32 PM EDT): - CXR normal - s/p azithromycin, which was ineffective - currently on prednisone, still symptomatic - likely allergy; triggers yet to be identified - waiting for appt with pulmonology and customer acquisition specialist - optimize Tx for allergic rhinitis - continue albuterol HFA / neb prn (will not prescribe ICS; her lungs are clear) - evaluate with PFT - follow up in 6 wks GERD (gastroesophageal reflux disease) Assessment & Plan (08/22/2024 2:55 PM EDT): - previously on pantoprazole - last EGD in Jan 2025 Assessment & Plan (05/20/2023 5:29 PM EST): - continue pantoprazole - ?associated with current cough - upcoming appt in 07/2023 Assessment & Plan (02/13/2023 9:49 AM EDT): - continue pantoprazole - ?associated with current cough - upcoming appt in 07/2023 Assessment & Plan (11/28/2022 12:33 PM EDT): - continue pantoprazole - ?associated with current cough - refer to GI for EGD Tubular adenoma of colon 11/27/2022 Assessment & Plan (08/22/2024 2:54 PM EDT): - colonoscopy on 02/27/19 at [facility], 2 polyps removed, one hyperplastic polyp, one tubular adenoma - colonoscopy on 01/04/24 at [facility], 2 polyps removed, sigmoid and transverse, both were tubular adenoma Assessment & Plan (09/24/2023 6:08 PM EDT): - colonoscopy on 02/27/19 at [facility], 2 polyps removed, one hyperplastic polyp, one tubular adenoma - recommended to have a repeat colonoscopy in 3-5 years - seen by [facility] GI in Jul 2023, and was recommended to have a colonoscopy Assessment & Plan (05/20/2023 5:29 PM EST): - colonoscopy on 02/27/19 at [facility], 2 polyps removed, one hyperplastic polyp, one tubular adenoma - recommended to have a repeat colonoscopy in 3-5 years Assessment & Plan (03/07/2023 3:45 AM EDT): - colonoscopy on 02/27/19 at [facility], 2 polyps removed, one hyperplastic polyp, one tubular adenoma - recommended to have a repeat colonoscopy in 3-5 years - currently followed by [facility] and has an upcoming appt Assessment & Plan (11/27/2022 4:59 AM EDT): - colonoscopy on 02/27/19 at [facility], 2 polyps removed, one hyperplastic polyp, one tubular adenoma - recommended to have a repeat colonoscopy in 3-5 years Gastric cancer 08/23/2022 Assessment & Plan (08/22/2024 3:04 PM EDT): - followed by [facility] oncology, last seen by Dr. Bustos in Jul 2024 - gastric adenocarcinoma - Dx Apr 2020, [facility], HER-2/lin negative, PD-L1 98% - Recurrence Jan 2024. Treatment Hx -Chemotherapy FOLFOX regimen since 05/11/20, nivolumab immunotherapy added to cycle#3 on 07/20/20, completed cycle#25 on 06/05/22. -EGD on 06/20/22 showed no residual tumor. Chemotherapy was discontinued. On surveillance plan. -Disease under control until September 2023. Chest/Abdominal/Pelvic CT in September 2023 showed progressive increase in size of gastrohepatic lymph node, suspicious for metastatic disease. -Started on palliative CAPOX and nivolumab regimen in Feb 2024. 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 Oxaliplatin was discontinued because of allergic reaction. Treatment Cycle 5 was delayed due to her trip to [place]. -Currently in Cycle 8. -Patient demonstrates her resilience, tolerating chemotherapy side effects and working full-time. Encouraged to take some rest and have some time for herself. Assessment & Plan (09/24/2023 6:07 PM EDT): - gastric adenocarcinoma - Dx Apr 2020, followed by [facility] oncology, last seen in August 2023 Treatment Hx -Chemotherapy FOLFOX regimen since 05/11/20, nivolumab immunotherapy added to cycle#3 on 07/20/20, completed cycle#25 on 06/05/22. -EGD on 06/20/22 showed no residual tumor. Chemotherapy was discontinued. -Last surveillance imaging study: Chest/Abdominal/Pelvic CT in September 2023 showed progressive increase in size of gastrohepatic lymph node, suspicious for metastatic disease. -PET scan is scheduled on 09/27/23. -Continue surveillance as planned by oncologist -Surveillance plan: history and physical exam every 3-6 months for the first 2 years and 6-12 months for 3-5 years; complete blood count and chemistry profile as clinically indicated; upper endoscopy as clinically indicated; followup CT scan of the chest, abdomen and pelvis with oral and intravenous contrast every 6-12 months for the first 2 years, then annually up to 5 years. Assessment & Plan (05/20/2023 5:30 PM EST): - gastric adenocarcinoma - Dx Apr 2020, followed by [facility] oncology, last seen in Apr 2023 Treatment Hx -Chemotherapy FOLFOX regimen since 05/11/20, nivolumab immunotherapy added to cycle#3 on 07/20/20, completed cycle#25 on 06/05/22. -EGD on 06/20/22 showed no residual tumor. Chemotherapy was discontinued. -Last surveillance imaging study: Chest/Abdominal/Pelvic CT in Feb 2023 showed no sign of recurrence -Continue surveillance as planned by oncologist -Surveillance plan: history and physical exam every 3-6 months for the first 2 years and 6-12 months for 3-5 years; complete blood count and chemistry profile as clinically indicated; upper endoscopy as clinically indicated; followup CT scan of the chest, abdomen and pelvis with oral and intravenous contrast every 6-12 months for the first 2 years, then annually up to 5 years. Assessment & Plan (03/07/2023 3:46 AM EDT): - gastric adenocarcinoma - Dx Apr 2020, followed by [facility] oncology, last seen on 02/05/23 Treatment Hx -Chemotherapy FOLFOX regimen since 05/11/20, nivolumab immunotherapy added to cycle#3 on 07/20/20, completed cycle#25 on 06/05/22. -EGD on 06/20/22 showed no residual tumor. Chemotherapy was discontinued. -Last surveillance imaging study: Chest/Abdominal/Pelvic CT in September 2022 showed no sign of recurrence -Continue surveillance as planned by oncologist -Surveillance plan: history and physical exam every 3-6 months for the first 2 years and 6-12 months for 3-5 years; complete blood count and chemistry profile as clinically indicated; upper endoscopy as clinically indicated; followup CT scan of the chest, abdomen and pelvis with oral and intravenous contrast every 6-12 months for the first 2 years, then annually up to 5 years. Assessment & Plan (11/27/2022 5:01 AM EDT): gastric adenocarcinoma Dx Apr 2020, followed by [facility] oncology, last seen on 10/31/22 Treatment Hx Chemotherapy FOLFOX regimen since 05/11/20, nivolumab immunotherapy added to cycle#3 on 07/20/20, completed cycle#25 on 06/05/22. EGD on 06/20/22 showed no residual tumor. Chemotherapy was discontinued. Last surveillance imaging study: Chest/Abdominal/Pelvic CT in September 2022 showed no sign of recurrence Continue surveillance as planned by oncologist Surveillance plan: history and physical exam every 3-6 months for the first 2 years and 6-12 months for 3-5 years; complete blood count and chemistry profile as clinically indicated; upper endoscopy as clinically indicated; followup CT scan of the chest, abdomen and pelvis with oral and intravenous contrast every 6-12 months for the first 2 years, then annually up to 5 years. Assessment & Plan (09/25/2022 5:55 PM EDT): gastric adenocarcinoma Dx Apr 2020, followed by [facility] oncology, last seen in 08/2022 Treatment Hx: Chemotherapy FOLFOX regimen since 05/11/20, nivolumab immunotherapy added to cycle#3 on 07/20/20, completed cycle#25 on 06/05/22. EGD on 06/20/22 showed no residual tumor. Chemotherapy was discontinued. Chest/Abdominal/Pelvic CT showed no sign of recurrence Continue surveillance as planned by oncologist Surveillance plan: history and physical exam every 3-6 months for the first 2 years and 6-12 months for 3-5 years; complete blood count and chemistry profile as clinically indicated; upper endoscopy as clinically indicated; followup CT scan of the chest, abdomen and pelvis with oral and intravenous contrast every 6-12 months for the first 2 years, then annually up to 5 years. Assessment & Plan (09/02/2022 6:10 AM EDT): gastric adenocarcinoma Dx Apr 2020, followed by [facility] oncology. Treatment Hx: Chemotherapy FOLFOX regimen since 05/11/20, nivolumab immunotherapy added to cycle#3 on 07/20/20, completed cycle#25 on 06/05/22. EGD on 06/20/22 showed no residual tumor. Chemotherapy was discontinued. Continue surveillance as planned by oncologist Paresthesia of foot 03/14/2016 Allergic rhinitis 09/22/2015 Assessment & Plan (08/22/2024 3:05 PM EDT): -Continue fexofenadine and fluticasone nasal -No longer taking Montelukast -Treatment Hx: Loratadine, which was ineffective; Tessalon Pereles were ineffective -Referred to [facility] for allergy testing since the patient is concerned about an allergy to dog hair and chemicals at work; appt in 2023 -Seen by Juvenile Officer and had RAST Test completed. Results showed: mild allergy to Dog Dander, [place] Tree. -Consider restarting montelukast Assessment & Plan (09/24/2023 6:09 PM EDT): -Continue fexofenadine -Continue Montelukast -Treatment Hx: Loratadine, which was ineffective; Tessalon Pereles were ineffective -Referred to [facility] for allergy testing since the patient is concerned about an allergy to dog hair and chemicals at work; appt in 2023 -Seen by Juvenile Officer and had RAST Test completed. Results showed: mild allergy to Dog Dander, [place]/Birch/[place] Tree. Assessment & Plan (05/20/2023 5:30 PM EST): -Continue fexofenadine -Continue Montelukast -Treatment Hx: Loratadine, which was ineffective; Tessalon Pereles were ineffective -Referred to [facility] for allergy testing since the patient is concerned about an allergy to dog hair and chemicals at work; appt in 2023 -Seen by Juvenile Officer and had RAST Test completed. Results showed: mild allergy to Dog Dander, [place]/Birch/Rich[place] Tree. Assessment & Plan (02/13/2023 9:39 AM EDT): -Continue fexofenadine -Continue Montelukast -Treatment Hx: Loratadine, which was ineffective; Tessalon Pereles were ineffective -Referred to [facility] for allergy testing since the patient is concerned about an allergy to dog hair and chemicals at work; appt in 2023 -Seen by Juvenile Officer and had RAST Test completed. Results showed: mild allergy to Dog Dander, [place]/Birch/Rich[place] Tree. Assessment & Plan (11/28/2022 12:34 PM EDT): -Continue fexofenadine -Treatment Hx: Loratadine, which was ineffective -Referred to [facility] for allergy testing since the patient is concerned about an allergy to dog hair and chemicals at work; appt in 2023 - add montelukast Assessment & Plan (09/25/2022 9:52 AM EDT): -Loratadine was ineffective, switched to Yasemin which was effective -Will refer patient to [facility] for allergy testing since the patient is concerned about an allergy to dog hair History of hysterectomy 09/22/2015 Overview (09/25/2022): Pap Smears not indicated Carpal tunnel syndrome 09/04/2014 Assessment & Plan (08/22/2024 2:47 PM EDT): -Followed by [facility] Ortho -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 -Continue wrist brace / splint nightly -Activity modification -s/p left carpal tunnel release on 02/22/23 and right carpal tunnel release on 10/27/23 Assessment & Plan (09/24/2023 6:05 PM EDT): -Followed by [facility] Ortho -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 -Continue wrist brace / splint nightly -Activity modification -s/p left carpal tunnel release on 02/22/23 and right side is scheduled for 10/27/23 Assessment & Plan (05/20/2023 5:25 PM EST): -Followed by [facility] Ortho -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 -Continue wrist brace / splint nightly -Activity modification -s/p left carpal tunnel release on 02/22/23 and right side is TBD Assessment & Plan (02/13/2023 9:41 AM EDT): -Normal XR in 08/2022 -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 -Continue wrist brace / splint nightly -Activity modification -Seen by Orthopedist on 01/24/23, scheduled for carpal tunnel release surgery: left on 02/22/23 and right side is TBD Assessment & Plan (11/28/2022 12:30 PM EDT): -Normal XR in 08/2022 -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 -Continue wrist brace / splint nightly -Activity modification -Will refer to OT and Ortho since pt is interested in receiving injection Assessment & Plan (09/25/2022 9:50 AM EDT): -Normal XR in 08/2022 -NCT ordered, no appointment made yet. Will check its status -Rx'd Wrist Brace, but patient has not received it yet. 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 [address] [place] [id number] Salima Mcpherson MD De Quervain's disease (radial styloid tenosynovitis) (Primary Dx) 02/10/2025 Travel 01/28/[address] [facility] [address] [place], [place] [phone] Becca Soni MD Nurse Triage 11/13/[address] [facility] [address] [place], [place] [phone] Becca Soni MD Nurse Triage from Last 3 Months Immunizations Immunization Administration Dates Next Due Influenza, IIV3, injectable 03/15/2016, 5,04/07/2014 Eddie SARS-CoV-2 Vaccination 09/01/2020,2020 Pneumococcal Conjugate PCV 13 05/13/2020 Pneumococcal Polysaccharide PPSV23 09/21/2020 Tdap 08/21/2024,04/07/2014 Family History Medical History Relation Name Comments Pancreatic cancer Maternal Grandfather Colon cancer Mother's Brother Relation Name Status Comments Maternal Grandfather Mother's Brother Other Social History Tobacco Use Types Packs/Day Years [...] Don't know 07/18/2022 9: 12 AM EST Last Filed Vital Signs Vital Sign Reading Time Taken Comments Blood Pressure 115/71 02/10/2025 8:49 AM EDT Pulse 85 02/10/2025 8:49 AM EDT Temperature 36.4 C (97.6 F) 02/10/2025 8:49 AM EDT Respiratory Rate 16 02/10/2025 8:49 AM EDT Oxygen Saturation 98% 08/21/2024 10:07 AM EDT Inhaled Oxygen Concentration - - Weight 59.6 kg (131 lb 6.4 oz) 02/10/2025 8:49 A M EDT Height 147.7 cm (4' 10.13 ) 02/10/2025 8:49 AM E DT Body Mass Index 27.34 02/10/2025 8:49 AM EDT Plan of Treatment Health Maintenance Due Date Last Done Comments CT Colonography 1971 FIT DNA/Cologuard 1971 FIT 1971 FOBT 1971 Sigmoidoscopy 1971 Disability Screening 1971 Alcohol/Substance Use Screening 1983 Zoster Vaccines (1 of 2) 2021 SDOH Screening 09/21/2023 09/20/2022 Depression Screening 09/23/2024 09/24/2023, 09/24/19 24 Mammogram 11/03/2024 11/03/2022, 11/02, 08/22/2017 COVID-19 Vaccine ( season) 2025 07/27/2021, 09/01/2020, 08/25/2020 Influenza Vaccine (#1) 2025 6, 03/15/2016, 04/20/2015, Additional history exists Pneumococcal Vaccine: 50+ Years (3 of 3 - PCV20 or PCV21) 09/21/2025 09/21/2020, 05/13/2020 Tobacco Screening 02/10/2026 02/10/2025 Colonoscopy 01/03/2027 01/04/2024, 02/27/2019 Colorectal Cancer Screening 01/03/2027 DTaP/Tdap/Td Vaccines (3 - Td or Tdap) 08/21/2034 08/21/2024, 04/07/2014 RSV Patients and Patients Aged 60 years or older (1 - 1-dose 75+ series) 2046 HIB Vaccines Aged Out No longer eligi ble based on patient's age to complete this topic HIV Screening Discontinued HPV Vaccines Aged Out No longer eligi ble based on patient's age to complete this topic Hepatitis A Vaccines Aged Out No long er eligible based on patient's age to complete this topic Hepatitis B Vaccines Discontinued Hepatitis C Screening Discontinued IPV Vaccines Aged Out No longer eligi ble based on patient's age to complete this topic Meningococcal B Vaccine Aged Out No l onger eligible based on patient's age to complete this topic Meningococcal Vaccine Aged Out No guru dot eligible based on patient's age to complete this topic RSV under 20 months Aged Out No longe r eligible based on patient's age to complete this topic Rotavirus Vaccines Aged Out No longer eligible based on patient's age to complete this topic Procedures Procedure Name Priority Date/Time Associated Diagnosis Comments XR WRIST 3+ VIEWS RIGHT Routine 02/10/2025 9:33 AM EDT De Quervain's disease (radial styloid tenosynovitis) HM COLONOSCOPY Routine 01/04/2024 BI MAMMOGRAM SCREENING TOMOSYNTHESIS BILATERAL Routine 11/03/2022 7:56 AM EDT from Last 3 Months or Most Recently Relevant to Health Maintenance Results * XR Wrist 3+ Views Right (02/10/2025 9:33 AM EDT) Anatomical Region Laterality Modality Upper Extremities, Wrist Right Radiogr aphic Imaging 02/10/2025 9:33 AM EDT Narrative 02/10/2025 9:47 [place] [address] XRay Report Signed Patient: Radha Cabrera MR#: [id number] : 1970 Acct:[id number] Age/Sex: 54 / F ADM Date: 02/10/25 Loc: .[facility]X Attending Dr: Salima Mcpherson MD Ordering Physician: Salima Mcpherson MD Date of Service: 02/10/25 Procedure(s): XR wrist RT min 3V Accession Number(s): [id number] cc: Salima Mcpherson MD Reason for Exam: [...] in OV> 02/10/2544 DD/ 2 TD/TT: 02/10/25932 Chair Upholsterer: Procedure Note Donotjaniinterpreter, Image - 02/10/[address] [address] XRay Report Signed Patient: Radha Cabrera AMR#: [id number] : 1970Acct:[id number] Age/Sex: 54 / FADM Date: 02/10/25 [facility]: Salima Mcpherson MD Ordering Physician: Salima Mcpherson MD Date of Service: 02/10/25 Procedure(s): XR wrist RT min 3V Accession Number(s): [id number] cc: Salima Mcpherson MD Reason for Exam: [...] in OV> 02/10/2544 DD/ 2 TD/TT: 02/10/25932 Chair Upholsterer: Salima Mcpherson MD IMG XR PROCEDURES Edited R esult - Final * (ABNORMAL) Hm Colonoscopy (01/04/2024) Colonoscopy Abnormal( A) Normal Comment:Tubular adenoma 01/04/2024 Historical Provider HEALTH MAINTENANCE Final Result * BI Mammogram Screening Tomosynthesis Bilateral (11/03/2022 7:56 AM EDT) Anatomical Region Laterality Modality Breast Bilateral Mammography 11/03/2022 7:56 AM EDT Narrative 11/04/2022 1:00 PM EDT [facility] [place] [address] Mammography Report Signed Patient: Radha Cabrera MR#: [id number] : 1970 Acct:[id number] Age/Sex: 52 / F ADM Date: 11/03/22 Loc: .MAMMO Attending Dr: Becca Soni MD Ordering Physician: Becca Soni MD Results: 2Benign F indings Date of Service: 11/03/22 Follow Up: 1 Year From [facility] Mammogram Procedure(s): MM tomosynthesis screening BI Accession Number(s): [id number] cc: Becca Soni MD EXAMINATION: MM SCREENING DIGITAL BREAST TOMOSYNTHESIS, BILATERAL CLINICAL INFORMATION: Screening. Asymptomatic. Prior history reduction mammoplasty. The lifetime risk of breast cancer based on the Tyrer-Cuzick Model is 6%. COMPARISON: Mammography: 11/11/2018, 08/21/2017, 08/04/2016 TECHNIQUE: Digital breast tomosynthesis is performed in both the craniocaudal and mediolateral oblique views along with computer-aided detection (CAD). Synthesized 2D images are generated from the tomosynthesis. FINDINGS: There are scattered areas of fibroglandular density (ACR BI-RADS breast composition Category b). There are no significant masses, abnormal calcifications, or other abnormalities. There is no developing density or interval architectural abnormality. Benign heavily calcified nodules right central mid 9:00 and right posterior breast are again demonstrated. There is portion of a port overlying the posterior right axilla on MLO view. The axilla are otherwise unremarkable. No significant changes from prior exams. MM/MM tomosynthesis screening BI IMPRESSION: No mammographic evidence of malignancy. ASSESSMENT: BI-RADS 2: Benign RECOMMENDATION: Routine annual mammography screening. This patient's information was entered into a reminder system with a target due date for their next mammogram. Dictated By: Luke Crandall MD Signed By: <Electronically signed by Luke Crandall MD in OV> 11/04/22 1257 DD/ 0756 TD/TT: Chair Upholsterer: DAWKINS Procedure Note Donotuseinterpreter, Image - 11/30/2022 [facility] [address] [place] [address] Mammography Report Signed Patient: Radha Cabrera AMR#: [id number] : 1970Acct:[id number] Age/Sex: 52 / FADM Date: 11/03/22 Loc: HO.MAMMO Attending Dr: Becca Soni MD Ordering Physician: Becca Soni MDResults: 2Benign F indings Date of Service: 11/03/22Follow Up: 1 Year From Orig inal Mammogram Procedure(s): MM tomosynthesis screening BI Accession Number(s): [id number] cc: Becca Soni MD EXAMINATION: MM SCREENING DIGITAL BREAST TOMOSYNTHESIS, BILATERAL CLINICAL INFORMATION: Screening. Asymptomatic. Prior history reduction mammoplasty. The lifetime risk of breast cancer based on the Tyrer-Cuzick Model is 6%. COMPARISON: Mammography: 11/11/2018, 08/21/2017, 08/04/2016 TECHNIQUE: Digital breast tomosynthesis is performed in both the craniocaudal and mediolateral oblique views along with computer-aided detection (CAD). Synthesized 2D images are generated from the tomosynthesis. FINDINGS: There are scattered areas of fibroglandular density (ACR BI-RADS breast composition Category b). There are no significant masses, abnormal calcifications, or other abnormalities. There is no developing density or interval architectural abnormality. Benign heavily calcified nodules right central mid 9:00 and right posterior breast are again demonstrated. There is portion of a port overlying the posterior right axilla on MLO view. The axilla are otherwise unremarkable. No significant changes from prior exams. MM/MM tomosynthesis screening BI IMPRESSION: No mammographic evidence of malignancy. ASSESSMENT: BI-RADS 2: Benign RECOMMENDATION: Routine annual mammography screening. This patient's information was entered into a reminder system with a target due date for their next mammogram. Dictated By: Luke Crandall MD Signed By: <Electronically signed by Luke Crandall MD in OV> 11/04/22 1257 DD/ 0756 TD/TT: Chair Upholsterer: JUANCHO [facility] External Provider IMG BI PROCEDURES Edited Result - Final from Last 3 Months or Most Recently Relevant to Health Maintenance Insurance [place] [address] C3 [facility] FULL Care Teams Geology Faculty Member Relationship Specialty Start Date End Date Becca Soni MD [address] [place] [id number] PCP - General Family Medicine 08/24/22
--- OUTSIDE RECORDS SUMMARY | 2025-02-10 10:49 | XMS_ITS | Encounter Summary ---
Author Organization [facility] [facility] [employer] Address [address] [facility] 7t [place] [address] Care Team Providers Care Dog Behaviorist Name Role Phone Becca Soni MD Primary Care Provider [phone] Encounter Details Date Type Department Care Team (Latest Contact Info) Description 02/10/2025 Travel Social History Tobacco Use Types Packs/Day Years [...] Time PHQ-9 Depression Total Score: 0 09/24/19 3:24 PM EDT documented as of this encounter Care Teams Dog Behaviorist Relationship Specialty Start Date End Date Becca Soni MD [address] [place] [address] PCP - General Family Medicine 08/24/22 documented as of this encounter
--- OUTSIDE RECORDS SUMMARY | 2025-02-10 10:49 | XMS_ITS | Encounter Summary ---
Author Organization [employer] Address [address] [facility] 7t [place] [address] Care Team Providers Care Numerical Control Operator Name Role Phone Becca Soni MD Primary Care Provider [phone] Encounter Details Date Type Department Care Team ([facility] st Contact Info) Description 08/22/2024 Orders Only [facility] [address] [place], [place] [phone] Becca Soni MD [address] [place], [place] [phone] Allergic rhinitis, unspecified seasonality, unspecified trigger Social History Tobacco Use Types Packs/Day Years [...] as of this encounter Visit Diagnoses Diagnosis Allergic rhinitis, unspecified seasonality, unspecified trigger documented in this encounter Additional Health Concerns Assessment Noted Time PHQ-9 Depression Total Score: 0 09/24/19 24 3:24 PM EDT documented as of this encounter Care Teams Numerical Control Operator Relationship Specialty Start Date End Date Becca Soni MD [address] [place] [address] PCP - General Family Medicine 08/24/22 documented as of this encounter
== END 2025-02-10 09:24 | disposition home or self-care (01) ==
LOC: HO.HHCX 09:23
PROVIDERS: Visit Provider Family Medicine
DX: M65.4 Radial styloid tenosynovitis [de Quervain] (principal)
CPT/HCPCS: 73110

== ENCOUNTER → 2025-02-10 09:24 | Outpatient (BNV) | payer MEDICAID, SELFPAY | PROVIDERS: Visit Provider Radiology Diagnostic Radiology | DX: M25.531 Pain in right wrist (principal) | CPT/HCPCS: 73110 ==

== ENCOUNTER 2025-02-18 13:10 | Outpatient (AMB) | payer MEDICAID, SELFPAY ==
--- NOTE | 2025-02-18 13:30 | A.OFFVIS_ITS ---
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 Patient states she is having pain on her radial aspect of wrist, pain is worse chopping, gripping and twisting motions. States this is affecting her at work. She has a brace that limits wrist movement and wants to make sure this is the right brace to use. She is s/p CTR 10/25/23 [place]. Patient is also receiving chemo for her stomach cancer. Allergies Latex Allergy (Unknown, Uncoded 02/18/25 13:39) Rash HPI HPI New prob- right wrist pain and swelling: Details: Radha is a 54 year old right hand dominant Bahamian speaking woman who returns with new right wrist pain. She complains of right radial sided wrist pain, worse with pinching, gripping, twisting, and chopping activities. 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 She is wearing a brace but says this limits her motion and she is not sure if this is the correct brace to wear She has a Hx of a right carpal tunnel release, DOS: 10/25/23. She says she has stomach cancer and is currently undergoing chemotherapy, and has been since 2019. [facility] Medical History (Updated 02/18/25 @ 14:01 by Jacky Tovar) Carpal tunnel syndrome of left wrist Allergic rhinitis Carpal tunnel syndrome Odynophagia Dysphagia Anemia No known health problems Surgical History (Updated 11/07/23 @ 12:[address] [facility]) History of carpal tunnel release (10/25/23) Hx of endoscopy Hx of section Hx of bilateral breast reduction surgery Hx of colonoscopy H/O: hysterectomy Family History Family/Other Family history normal Mother No problems noted. 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 Review of Systems Const All systems reviewed & are unremarkable except as noted in HPI and below Physical Exam Vital Signs: BMI result Body Mass Index 24.0 Const General: no acute distress and alert Orientation/consciousness: patient oriented x3 Neuro General: patient oriented x3 Extrem Other: Evaluation of right Upper Extremity: The patient is alert, oriented, and in no acute distress She was hesitant & apprehensive to have me examine her today in clinic Neuro: Median, Ulnar, Radial nerves motor and sensory intact and sensation is normal to the tips of all digits Vascular: Cap refill brisk ROM: She can make a fist and extend all her digits No locking or catching Tender over the 1st dorsal compartment Positive Tanner test on the right Negative Tanner test on the left No tenderness over the basal joint, MCP joint, or a1 hilary Psych Appearance: grossly normal Affect: normal affect Attitude: cooperative Office Procedures AMB Fracture Care Details: No fracture, injection Fracture Billing Code: Fracture Billing Code Assessment & Plan Assessment & Plan (1) De Quervain's tenosynovitis, right: Code(s): M65.4 - Radial styloid tenosynovitis [de Quervain] Category: Medical Plan Assessment & Plan: 1. 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 She was given a note for work to return on light duty, with a 5lb weight limit with her RUE for 6 weeks, effective 02/18/25. Injection #1: The risks and benefits of a steroid injection including but not limited to risk of damage to blood vessels, nerves, tendons, infection, skin bleaching, failure to improve symptoms, increased pain, and possible need for further injections or other intervention were discussed with the patient and the patient wishes to proceed with the steroid injection. Once consent was obtained, I sterilely prepped the area over the 1st dorsal compartment of the Right thumb. I then injected the 1st dorsal compartment with a combination of 1 mL of dexamethasone (4mg/ml), and 1% lidocaine. The patient tolerated the procedure well with no complications and good resolution of their symptoms prior to leaving clinic. If the patient continues to have pain 6-8 weeks following this injection, they may call to schedule appointment to discuss alternative treatment options She will follow up prn 2. Right Carpal tunnel syndrome, S/P release DOS: 10/25/23 Pre-operatively with dense numbness Now with improved but not yet normal sensation 3. Left Carpal tunnel syndrome, S/P release DOS: 02/22/23 Pre-operative symptoms intermittent, but daily, worse with activity & at night Now with normal sensation Scribed for Riana Andino MD by delmar Mena scribe, on 02/18/25 at 1:55 PM, EST. Scribe Plan - Not visible on output: Scribed for Riana Andino MD by delmar Mena scribe, on [ ] at [ ], EST. Coding Level of Care Code Est Pt Level 3 (10917) Diagnoses De Quervain's tenosynovitis, right M65.4 CPT Codes Fracture Care - Fracture Billing Code: Fracture Billing Code ([id number])
[2025-02-18 13:32] VITALS: BMI 24.0
--- OUTSIDE RECORDS SUMMARY | 2025-02-18 16:48 | XMS_ITS | Encounter Summary ---
Author Organization [employer] Address [address] [place] [address] 7 [place] [address] Care Team Providers Care Workers Compensation Claims Examiner Name Role Phone Becca Soni MD Primary Care Provider [phone] Encounter Details Date Type Department Care Team ([facility] st Contact Info) Description 02/02/2023 Abstract [facility] MEDICINE [address] [place] [address] Becca Soni MD [address] [place] [address] Social History Tobacco Use Types Packs/Day Years [...] documented as of this encounter Care Teams Workers Compensation Claims Examiner Relationship Specialty Start Date End Date Becca Soni MD [address] [place] [address] PCP - General Family Medicine 08/24/22 documented as of this encounter
--- OUTSIDE RECORDS SUMMARY | 2025-02-18 16:48 | XMS_ITS | Encounter Summary ---
Author Organization [employer] Address [address] [place] [address] [address] [place] [address] Care Team Providers Care Fleet Technician Name Role Phone Becca Soni MD Primary Care Provider Reason for Visit * Reason Onset Date Comments Nurse Triage 01/19/2023 Encounter Details Date Type Department Care Team ([facility] st Contact Info) Description 01/19/2023 Telephone [facility] MEDICINE [address] [place] [address] Becca Soni MD [address] [place] [address] Nurse Triage Social History Tobacco Use Types [...] 01/19/2023 1:16 PM EDT Triage call with Adtuitive Mechanist [place] [id number] Pt reports chronic cough since August. Pt [...] are available through pharmacy now. Call with Adtuitive Mechanist ID [id number] Advised Pt that a nebulizer machine is available for machine pecan picker today at the [facility] pharmacy but, will not be held without machine pecan picker. Pt agrees and states will machine pecan picker machine within the hour. Pt is advised [...] cancer pt . Please contact pt at [phone] Filipino Speaker documented in this encounter Plan of Treatment Not on file documented as of this encounter Visit Diagnoses Not on filedocumented in this encounter Additional Health Concerns Assessment Noted Time PHQ-9 Depression Total Score: 0 03/23/20 23 9:36 AM EDT documented as of this encounter Care Teams Fleet Technician Relationship Specialty Start Date End Date Becca Soni MD [address] [place] [id number] PCP - General Family Medicine 08/24/22 documented as of this encounter
--- OUTSIDE RECORDS SUMMARY | 2025-02-18 16:48 | XMS_ITS | Encounter Summary ---
Author Organization [employer] Address [address] [facility] 7t [place] [address] Care Team Providers Care Banquet Steward Name Role Phone Becca Soni MD Primary Care Provider [phone] Encounter Details Date Type Department Care Team ([facility] st Contact Info) Description 05/11/2023 Abstract [facility] MEDICINE [address] [place], [place] [phone] Becca Soni MD [address] [place], [place] [phone] Social History Tobacco Use Types Packs/Day Years [...] documented as of this encounter Care Teams Banquet Steward Relationship Specialty Start Date End Date Becca Soni MD [address] [place] [id number] PCP - General Family Medicine 08/24/22 documented as of this encounter
--- OUTSIDE RECORDS SUMMARY | 2025-02-18 16:48 | XMS_ITS | Encounter Summary ---
Author Organization [employer] Address [address] [facility] 7t [place] [address] Care Team Providers Care Deburring And Tooling Machine Operator Name Role Phone Becca Soni MD Primary Care Provider [phone] Encounter Details Date Type Department Care Team ([facility] st Contact Info) Description 08/22/2024 Orders Only [facility] MEDICINE [address] [place], [place] [phone] Becca Soni MD [address] [place], [place] [phone] Allergic rhinitis, unspecified seasonality, unspecified trigger Social [...] documented as of this encounter Care Teams Deburring And Tooling Machine Operator Relationship Specialty Start Date End Date Becca Soni MD [address] [place] [address] PCP - General Family Medicine 08/24/22 documented as of this encounter
--- OUTSIDE RECORDS SUMMARY | 2025-02-18 16:49 | XMS_ITS | Encounter Summary ---
Author Organization [employer] Address [address] [facility] 7 [place] [address] Care Team Providers Care Direct Care Worker Name Role Phone Becca Soni MD Primary Care Provider [phone] Reason for Visit * Reason Onset Date Comments Nurse Triage 01/28/2025 Encounter Details Date Type Department Care Team ([facility] st Contact Info) Description 01/28/2025 Telephone [facility] MEDICINE [address] [place] [address] Becca Soni MD [address] [place] [address] Nurse Triage Social History Tobacco Use Types [...] 01/28/2025 1:14 PM EDT Triage call with [facility] ad [place] [id number]. Pt reports having headache for several days. [...] is advised to call backor come to [facility] if needed in the next few days [...] Getting worse The caller accepted this outcome. Stateless Speaking documented in this encounter Plan of Treatment Not on file documented as of this encounter Visit Diagnoses Not on filedocumented in this encounter Additional Health Concerns Assessment Noted Time PHQ-9 Depression Total Score: 0 09/24/19 24 3:24 PM EDT documented as of this encounter Care Teams Direct Care Worker Relationship Specialty Start Date End Date Becca Soni MD [address] [place] [address] PCP - General Family Medicine 08/24/22 documented as of this encounter
--- OUTSIDE RECORDS SUMMARY | 2025-02-18 16:49 | XMS_ITS | Clinical Summary ---
Author Organization [facility] Facility Address [address] [address] Care Team Providers Care Inventory Control Assistant Name Role Phone Artemio Bustos MD Primary Care Provider [phone] Allergies Active Allergy Reactions Criticality Noted Date [...] (#1) 2025 Insurance Medicaid [place] Care Teams Inventory Control Assistant Relationship Specialty Start Date End Date Artemio Bustos MD [address] [place], [place] PCP - General Medical Oncology 05/06/20
--- OUTSIDE RECORDS SUMMARY | 2025-02-18 16:49 | XMS_ITS | Clinical Summary ---
Author Organization [employer] Address [address] [facility] [address] [place] [address] Care Team Providers Care Head Baker Name Role Phone Becca Soni MD Primary Care Provider [phone] Allergies Active Allergy Reactions Criticality Noted Date [...] Plan (08/22/2024 2:53 PM EDT): -Followed by [facility] Machine Operator Assistant, last seen in Jun 2023 -Normal PFT in December 2022 -Allergy Test showed: mild allergy to Dog Dander, Pinson Tree, [place] and [place] Tree, not significant result -Previously on fluticasone / salmeterol and montelukast -Continue Fexofenadine Assessment & Plan (09/24/2023 6:05 PM EDT): -Followed by [facility] Machine Operator Assistant, last seen in Jun 2023 -Normal PFT in December 2022 -Allergy Test showed: mild allergy to Dog Dander, [place]inson Tree, [place] and [place] Tree, not significant result -Continue fluticasone / solmeterol -Continue montelukast -Continue Fexofenadine -Encouraged to increase adherence to Advair -Follow up in 3-6 mo Assessment & Plan (05/20/2023 5:29 PM EST): -Followed by [facility] Machine Operator Assistant, last seen in Feb 2023 -Normal PFT in December 2022 -Allergy Test showed: mild allergy to Dog Dander, [place]inson Tree, [place] and [place] Tree, not significant result -Continue fluticasone / [...] Plan (08/22/2024 2:51 PM EDT): -Evaluated by [facility] Machine Operator Assistant, last seen in Jun 2023 -Normal PFT in December 2022 -Allergy Test showed: mild allergy to Dog Dander, [place]inson Tree, [place] and [place] Tree, not significant result -Continue Fexofenadine and fluticasone nasal -Previously on ICS and montelukast, but patient has not been using -Most likely her gastric cancer recurrence was partly attributing to her symptoms -Optimize management for allergic rhinitis / hypersensitivity Assessment & Plan (09/24/2023 6:05 PM EDT): -Followed by [facility] Machine Operator Assistant, last seen in Jun 2023 -Normal PFT in December 2022 -Allergy Test showed: mild allergy to Dog Dander, [place] Tree, [place] and [place] Tree, not significant result -Continue fluticasone / solmeterol -Continue montelukast -Continue Fexofenadine -Encouraged to increase adherence to Advair -Follow up in 3-6 mo Assessment & Plan (05/20/2023 5:28 PM EST): -Followed by [facility] Machine Operator Assistant, last seen in Feb 2023 -Normal PFT in December 2022 -Allergy Test showed: mild allergy to Dog Dander, [place]inson Tree, [place] and [place] Tree, not significant result -Continue fluticasone / solmeterol -Continue montelukast -Continue Fexofenadine -Encouraged to increase adherence to Advair -Follow up in 3-6 mo Assessment & Plan (02/13/2023 9:48 AM EDT): -Pt was evaluated by Machine Operator Assistant on 12/07/22, and showed her PFT normal. -Pt currently trying Advair -Allergy Test showed: mild allergy to Dog Dander, [place]inson Tree, [place] and [place] Tree, not significant result -Cont Singulair -Continue Fexofenadine -Encouraged to increase adherence to advair -f/u w/ cuff setter overlock as scheduled CT Scan on 02/06/23 showed: [...] for appt with pulmonology (01/26/2023 ) and product specialist PFTs 12/09/2022: CONCLUSION: The baseline results [...] - waiting for appt with pulmonology and product specialist - optimize Tx for allergic rhinitis [...] PM EDT): - colonoscopy on 02/27/19 at [facility], 2 polyps removed, one hyperplastic polyp, one tubular adenoma - colonoscopy on 01/04/24 at [facility], 2 polyps removed, sigmoid and transverse, both were tubular adenoma Assessment & Plan (09/24/2023 6:08 PM EDT): - colonoscopy on 02/27/19 at [facility], 2 polyps removed, one hyperplastic polyp, one tubular adenoma - recommended to have a repeat colonoscopy in 3-5 years - seen by [facility] in Jul 2023, and was recommended to have a colonoscopy Assessment & Plan (05/20/2023 5:29 PM EST): - colonoscopy on 02/27/19 at [facility], 2 polyps removed, one hyperplastic polyp, one tubular adenoma - recommended to have a repeat colonoscopy in 3-5 years Assessment & Plan (03/07/2023 3:45 AM EDT): - colonoscopy on 02/27/19 at [facility], 2 polyps removed, one hyperplastic polyp, one tubular adenoma - recommended to have a repeat colonoscopy in 3-5 years - currently followed by [facility] and has an upcoming appt Assessment & Plan (11/27/2022 4:59 AM EDT): - colonoscopy on 02/27/19 at [facility], 2 polyps removed, one hyperplastic polyp, one tubular adenoma - recommended to have a repeat colonoscopy in 3-5 years Gastric cancer 08/23/2022 Assessment & Plan (08/22/2024 3:04 PM EDT): - followed by [facility] oncology, last seen by Dr. 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 Oxaliplatin was discontinued because of allergic reaction. Treatment Cycle 5 was delayed due to her trip to [place]. -Currently in Cycle 8. -Patient demonstrates her resilience, tolerating chemotherapy side effects and working full-time. Encouraged to take some rest and have some time for herself. Assessment & Plan (09/24/2023 6:07 PM EDT): - gastric adenocarcinoma - Dx Apr 2020, followed by [facility] oncology, last seen in August 2023 Treatment [...] adenocarcinoma - Dx Apr 2020, followed by [facility] oncology, last seen in Apr 2023 Treatment [...] adenocarcinoma - Dx Apr 2020, followed by [facility] oncology, last seen on 02/05/23 Treatment Hx [...] gastric adenocarcinoma Dx Apr 2020, followed by [facility] oncology, last seen on 10/31/22 Treatment Hx [...] gastric adenocarcinoma Dx Apr 2020, followed by [facility] oncology, last seen in 08/2022 Treatment Hx: [...] gastric adenocarcinoma Dx Apr 2020, followed by [facility] oncology. Treatment Hx: Chemotherapy FOLFOX regimen since [...] ineffective; Tessalon Pereles were ineffective -Referred to Allergy/Transformation Analyst for allergy testing since the patient is concerned about an allergy to dog hair and chemicals at work; appt in 2023 -Seen by Machine Operator Assistant and had RAST Test completed. Results showed: mild allergy to Dog Dander, Pinson/Birch/[place] Tree. -Consider restarting montelukast Assessment & Plan (09/24/2023 6:09 PM EDT): -Continue fexofenadine -Continue Montelukast -Treatment Hx: Loratadine, which was ineffective; Tessalon Pereles were ineffective -Referred to Allergy/Transformation Analyst for allergy testing since the patient is concerned about an allergy to dog hair and chemicals at work; appt in 2023 -Seen by Machine Operator Assistant and had RAST Test completed. Results showed: mild allergy to Dog Dander, Pinson/Birch/[place] Tree. Assessment & Plan (05/20/2023 5:30 PM EST): -Continue fexofenadine -Continue Montelukast -Treatment Hx: Loratadine, which was ineffective; Tessalon Pereles were ineffective -Referred to Allergy/Transformation Analyst for allergy testing since the patient is concerned about an allergy to dog hair and chemicals at work; appt in 2023 -Seen by Machine Operator Assistant and had RAST Test completed. Results showed: mild allergy to Dog Dander, Pinson/Birch/[place] Tree. Assessment & Plan (02/13/2023 9:39 AM EDT): -Continue fexofenadine -Continue Montelukast -Treatment Hx: Loratadine, which was ineffective; Tessalon Pereles were ineffective -Referred to Allergy/Transformation Analyst for allergy testing since the patient is concerned about an allergy to dog hair and chemicals at work; appt in 2023 -Seen by Machine Operator Assistant and had RAST Test completed. Results showed: mild allergy to Dog Dander, Pinson/Birch/[place] Tree. Assessment & Plan (11/28/2022 12:34 PM EDT): -Continue fexofenadine -Treatment Hx: Loratadine, which was ineffective -Referred to Allergy/Transformation Analyst for allergy testing since the patient is concerned about an allergy to dog hair and chemicals at work; appt in 2023 - add montelukast Assessment & Plan (09/25/2022 9:52 AM EDT): -Loratadine was ineffective, switched to Yasemin which was effective -Will refer patient to Allergy/Transformation Analyst for allergy testing since the patient is concerned about an allergy to dog hair History of hysterectomy 09/22/2015 Overview (09/25/2022): Pap Smears not indicated Carpal tunnel syndrome 09/04/2014 Assessment & Plan (08/22/2024 2:47 PM EDT): -Followed by [facility] Ortho -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 -Continue wrist brace / splint nightly -Activity modification -s/p left carpal tunnel release on 02/22/23 and right carpal tunnel release on 10/27/23 Assessment & Plan (09/24/2023 6:05 PM EDT): -Followed by [facility] Ortho -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 -Continue wrist brace / splint nightly -Activity modification -s/p left carpal tunnel release on 02/22/23 and right side is scheduled for 10/27/23 Assessment & Plan (05/20/2023 5:25 PM EST): -Followed by [facility] Ortho -NCT / EMG on 11/01/22 Moderately [...] Description 02/10/2025 9:00 AM EDT Office Visit [facility] [address] [place] [address] Salima Mcpherson MD De Quervain's disease (radial styloid tenosynovitis) (Primary Dx) 02/10/2025 Travel 01/28/2025 Telephone [facility] [address] [place] [address] Becca Soni MD Nurse Triage from Last [...] AM EDT Narrative 02/10/2025 9:47 [place] [address] XRay Report Signed Patient: Radha Cabrera MR#: [id number] : 1970 Acct:[id number] Age/Sex: 54 / F ADM Date: 02/10/25 Loc: HO.HHCX Attending Dr: Salima Mcpherson MD Ordering Physician: Salima Mcpherson MD Date of Service: 02/10/25 Procedure(s): XR wrist RT min 3V Accession Number(s): [id number] cc: Salima Mcpherson MD Reason for Exam: [...] signed by Elias Bush MD in OV> 02/10/25943 DD/ 2 TD/TT: 02/10/25932 Tourism Radio Presenter: Procedure Note Donotuseinterpreter, Image - 02/10/[address] [address] XRay Report Signed Patient: Radha Cabrera AMR#: [id number] : 1970Acct:[id number] Age/Sex: 54 / FADM Date: 02/10/25 Loc: HO.HHCX Attending Dr: Salima Mcpherson MD Ordering Physician: Salima Mcpherson MD Date of Service: 02/10/25 Procedure(s): XR wrist RT min 3V Accession Number(s): [id number] cc: Salima Mcpherson MD Reason for Exam: [...] signed by Elias Bush MD in OV> 02/10/25943 DD/ 2 TD/TT: 02/10/25932 Tourism Radio Presenter: Salima Mcpherson MD IMG XR PROCEDURES Edited R esult - Final * (ABNORMAL) Hm Colonoscopy (01/04/2024) Colonoscopy Abnormal( A) Normal Comment:Tubular adenoma 01/04/2024 us Historical Provider HEALTH MAINTENANCE Final Result * BI Mammogram Screening Tomosynthesis Bilateral (11/03/2022 7:56 AM EDT) Anatomical Region Laterality Modality Breast Bilateral Mammography 11/03/2022 7:56 AM EDT Narrative 11/04/2022 1:00 PM EDT [facility] [address] [place] [address] Mammography Report Signed Patient: Radha Cabrera MR#: [id number] : 1970 Acct:[id number] Age/Sex: 52 / F ADM Date: 11/03/22 Loc: .MAMMO Attending Dr: Becca Soni MD Ordering Physician: Becca Soni MD Results: 2Benign F indings Date of Service: 11/03/22 Follow Up: 1 Year From [facility] Mammogram Procedure(s): MM tomosynthesis screening BI Accession Number(s): [id number] cc: Becca Soni MD EXAMINATION: MM SCREENING [...] in OV> 11/04/22 1257 DD/ 0756 TD/TT: Tourism Radio Presenter: JUANCHO Procedure Note Donotuseinterpreter, Image - 11/30/2022 [facility] [place] [address] Mammography Report Signed Patient: Radha Cabrera AMR#: [id number] : 1970Acct:[id number] Age/Sex: 52 / FADM Date: 11/03/22 Loc: DakotaMAMMO Attending Dr: Becca Soni MD Ordering Physician: Becca Soni MDResults: 2Benign F indings Date of Service: 11/03/22Follow Up: 1 Year From Orig ina Mammogram Procedure(s): MM tomosynthesis screening BI Accession Number(s): [id number] cc: Becca Soni MD EXAMINATION: MM SCREENING [...] in OV> 11/04/22 1257 DD/ 0756 TD/TT: Tourism Radio Presenter: JUANCHO [facility] External Provider IMG BI PROCEDURES Edited Result - Final from Last 3 Months or Most Recently Relevant to Health Maintenance Insurance C3 HSN FULL Care Teams Head Baker Relationship Specialty Start Date End Date Becca Soni MD [address] [place] [id number] PCP - General Family Medicine 08/24/22
--- OUTSIDE RECORDS SUMMARY | 2025-02-18 16:49 | XMS_ITS | Encounter Summary ---
Author Organization [employer] Address [address] [facility] [address] [place] [address] Care Team Providers Care Tableau Lead Name Role Phone Becca Soni MD Primary Care Provider [phone] Encounter Details Date Type Department Care Team ([facility] st Contact Info) Description 02/28/2024 Orders Only [facility] [address] [place], [place] [phone] Becca Soni MD [address] [place], [place] [phone] Lung nodule (Primary Dx) Social History Tobacco [...] documented as of this encounter Care Teams Tableau Lead Relationship Specialty Start Date End Date Becca Soni MD [address] [place] [address] PCP - General Family Medicine 08/24/22 documented as of this encounter
== END 2025-02-18 14:28 | disposition home or self-care (01) ==
PROVIDERS: Visit Provider Orthopaedic Surgery
DX: M65.4 Radial styloid tenosynovitis [de Quervain] (principal)
CPT/HCPCS: 20550; 99213

== ENCOUNTER → 2025-02-18 13:10 | Outpatient (BNVA) | payer MEDICAID, SELFPAY | PROVIDERS: Visit Provider Orthopaedic Surgery | DX: M65.4 Radial styloid tenosynovitis [de Quervain] (principal) | CPT/HCPCS: 20550; 99212; J1100; J2003 ==